=== PATIENT | female | born 1960 | race Caucasian/White ===

== ENCOUNTER 2017-08-17 07:44 | Inpatient (IN) | payer OTHER ==
[2017-08-17 08:57] LABS: BASO % 0.8 % (0-2.0); EOS % 3.2 % (0-4.5); MCH 26.5 pg (25.7-33.7); MCHC 31.7 g/dl (32.0-36.0); MEAN CELL VOLUME 83.7 fl (80-96); MEAN PLT VOLUME 7.3 fl (7.5-11.1); PLATELET COUNT 364 K/MM3 (134-434); RDW 14.4 % (11.6-15.6); WHITE BLOOD COUNT 9.9 K/mm3 (4.0-10.0)
[2017-08-17 09:22] LABS: PHOSPHOROUS 3.9 mg/dL (2.5-4.9); URIC ACID 2.8 mg/dL (2.6-7.2)
[2017-08-17 09:25] LABS: ALBUMIN 2.8 g/dl (3.4-5.0); ALK PHOS 103 U/L (45-117); ANION GAP 10 (8-16); BILIRUBIN,DIRECT < 0.2 mg/dL (0.0-0.2); BILIRUBIN,TOTAL 0.3 mg/dL (0.2-1.0); CALCIUM 9.5 mg/dL (8.5-10.1); CO2 25 mmol/L (21-32); CREATININE 0.6 mg/dL (0.55-1.02); GLUCOSE,RANDOM 62 mg/dL (74-106); MAGNESIUM 2.2 mg/dL (1.8-2.4); SGOT/AST 17 U/L (15-37); SGPT/ALT 20 U/L (12-78); TOT PROT 7.2 g/dl (6.4-8.2)
[2017-08-17] MEDS: SODIUM CHLORIDE 1,000 ML IV SCH ×2 (09:51→17:17)
[2017-08-17] MEDS ORDERED: LIDOCAINE 2.5%/PRILOCAINE 2.5% (5 Gram/TUBE) TP ONE (10:15)
[2017-08-17] MEDS ORDERED: DEXTROSE 5%-NORMAL SALINE 500 ML IV ONE (10:45)
[2017-08-17] MEDS ORDERED: DEXAMETHASONE IVPB ONE (11:00)
[2017-08-17] MEDS ORDERED: DIPHENHYDRAMINE IVPB ONE (11:00)
[2017-08-17] MEDS ORDERED: ONDANSETRON IVPB ONE (11:00)
[2017-08-17] MEDS ORDERED: FOSAPREPITANT DIMEGLUMINE 150 MG in SODIUM CHLORIDE 145 ML IVPB ONE (11:00)
[2017-08-17] MEDS ORDERED: ACETAMINOPHEN 325 MG TABLET (FP) PO ONE (11:00)
[2017-08-17] MEDS ORDERED: [UNRECOGNIZED DRUG - OTHER] IVPB ONE (11:00)
[2017-08-17] MEDS ORDERED: SODIUM CHLORIDE IVPB ONE (11:30)
[2017-08-17] MEDS ORDERED: RITUXIMAB IVPB ONE (11:30)
[2017-08-17] MEDS ORDERED: ONDANSETRON 4 MG TABLET PO PRN (11:36)
[2017-08-17] MEDS ORDERED: ONDANSETRON 4 MG/2 ML VIAL IVPB PRN (11:36)
[2017-08-17] MEDS ORDERED: guaiFENesin 200 MG/10 ML 10 ML UNIT-DOSE CUPS PO PRN (11:41)
[2017-08-17] MEDS: ALLOPURINOL 300 MG TABLET (FP) PO SCH (13:00)
[2017-08-17 15:04] VITALS: BMI 19.8
[2017-08-17] MEDS ORDERED: [UNRECOGNIZED DRUG - OTHER] IV ONE (16:30)
[2017-08-17] MEDS ORDERED: DOXORUBICIN HCL IV ONE (16:30)
[2017-08-17] MEDS ORDERED: ETOPOSIDE IV ONE (16:30)
[2017-08-17] MEDS: DOCUSATE SODIUM 100 MG CAPSULE (FP) PO SCH ×2 (17:21→21:36)
--- NOTE | 2017-08-17 18:25 | CON.PULM ---
Consult - History of Present Illness Chief Complaint: Non-productive cough History of Present Illness: 57 year old developed non-productive cough in May. CXR and CT chest revealed RUL/R hilar mass. Mediastinoscopy: Large B-Cell Lymphoma. Pt now admitted for chemotherapy. 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, Seizure, Syncope, TIA, Vertigo Cardio/Vascular: No: CAD, CHF, [place] Pulmonary: No: Asthma, COPD Gastrointestinal: No: GERD, GI Bleed, Ulcerative Colitis Renal/: Yes: Other (urethral stenosi and urinary regention-self catherizes) ...LMP: 06/26/14 - Past Surgical History Additional Surgical History: Right nephrectomy 20 years ago for (?) benign disease - Alcohol/Substance Use Hx Alcohol Use: No - Smoking History Smoking history: Never smoked Have you smoked in the past 12 months: No Aproximately how many cigarettes per day: 0 If you are a former smoker, when did you quit?: n Home Medications - Allergies Allergies/Adverse Reactions: Allergies Allergy/AdvReac Type Severity Reaction Status Date / Time Penicillins Allergy Mild Hives Verified 01/24/12 02:01 - Home Medications Home Medications: Ambulatory Orders Nitrofurantoin Monohyd/M-Cryst [Macrobid 100 mg Capsule] 100 mg PO BID #30 capsule 01/24/12 Review of Systems - Review of Systems Constitutional: denies: Chills, Fever Neck: denies: Lumps Cardiovascular: denies: Chest Pain, Edema, Palpitations, Shortness of Breath Respiratory: reports: Cough. denies: Hemoptysis, Orthopnea, SOB, Wheezing Gastrointestinal: denies: Abdominal Pain, Diarrhea, Dysphagia, Rectal Bleeding, Vomiting, Vomiting Blood Genitourinary: denies: Burning Neurological: denies: Change in Speech, Headache, Seizure, Syncope, Tremors, Unsteady Gait, Weakness Physical Exam Vital Sings: Vital Signs Temperature 97.6 F 08/17/17 17:00 Pulse Rate 86 08/17/17 17:00 Respiratory Rate 08/17/17 17:00 Blood Pressure 91/50 08/17/17 17:00 O2 Sat by Pulse Oximetry (%) Constitutional: Yes: Well Nourished, No Distress, Calm Eyes: No: Sclera Icterus HENT: Yes: Atraumatic, Normocephalic Neck: Yes: Supple, Trachea Midline Cardiovascular: Yes: Regular Rate and Rhythm. No: JVD, Murmur Respiratory: Yes: CTA Bilaterally ...Inspection: Yes: WNL ...Palpation: No: Tenderness ...Clubbing: No Gastrointestinal: Yes: Soft. No: Hepatomegaly, Palpable Mass, Splenomegaly, Tenderness Extremities: No: Calf Tenderness Edema: No Neurological: Yes: Alert, Oriented Labs: CBC, BMP 08/17/17 08:39 08/17/17 08:39 Problem List - Problems (1) Large B-cell lymphoma Code(s): C85.10 - UNSPECIFIED B-CELL LYMPHOMA, UNSPECIFIED SITE Assessment/Plan Large B Cell Lymphoma undergoing chemotherapy. Respiratory and cardiac status normal. No fever. Plan: treatment per oncologists. Observe for signs of sepsis and/or bleeding.
[2017-08-17] MEDS: ONDANSETRON 4 MG/2 ML VIAL IVPB SCH (18:30)
[2017-08-17] MEDS: ALPRAZolam 0.25 MG TABLET PO PRN (21:32)
[2017-08-17] MEDS: SENNOSIDES 8.6MG TABLET (FP) PO PRN (21:32)
[2017-08-18] MEDS: SODIUM CHLORIDE 1,000 ML IV SCH ×4 (01:01→14:15)
[2017-08-18] MEDS: DOCUSATE SODIUM 100 MG CAPSULE (FP) PO SCH ×3 (06:40→21:30)
[2017-08-18 07:37] LABS: BASO % 0.1 % (0-2.0); MCH 26.8 pg (25.7-33.7); MCHC 31.8 g/dl (32.0-36.0); MEAN CELL VOLUME 84.4 fl (80-96); MEAN PLT VOLUME 7.8 fl (7.5-11.1); NEUT % 95.4 % (42.8-82.8); PLATELET COUNT 239 K/MM3 (134-434); RDW 14.2 % (11.6-15.6); WHITE BLOOD COUNT 9.7 K/mm3 (4.0-10.0)
[2017-08-18 07:53] LABS: ALBUMIN 2.2 g/dl (3.4-5.0); ANION GAP 11 (8-16); CALCIUM 8.8 mg/dL (8.5-10.1); CO2 22 mmol/L (21-32); GLUCOSE,RANDOM 110 mg/dL (74-106); MAGNESIUM 1.8 mg/dL (1.8-2.4)
[2017-08-18 07:58] LABS: ALK PHOS 103 U/L (45-117); BILIRUBIN,TOTAL 0.2 mg/dL (0.2-1.0); CREATININE 0.5 mg/dL (0.55-1.02); LDH 394 U/L (84-246); PHOSPHOROUS 2.9 mg/dL (2.5-4.9); SGOT/AST 19 U/L (15-37); SGPT/ALT 22 U/L (12-78); URIC ACID 2.2 mg/dL (2.6-7.2)
[2017-08-18] MEDS: predniSONE 20 MG TABLET (UD) PO SCH ×2 (09:57→21:27)
[2017-08-18] MEDS: ALLOPURINOL 300 MG TABLET (FP) PO SCH (09:58)
[2017-08-18] MEDS: ONDANSETRON 4 MG/2 ML VIAL IVPB SCH (09:59)
[2017-08-18] MEDS ORDERED: ONDANSETRON IVPB ONE (14:00)
[2017-08-18] MEDS ORDERED: SODIUM CHLORIDE IVPB ONE ×2 (14:00→14:30)
[2017-08-18] MEDS ORDERED: ACETAMINOPHEN 325 MG TABLET (FP) PO ONE (14:00)
[2017-08-18] MEDS ORDERED: DIPHENHYDRAMINE IVPB ONE (14:00)
[2017-08-18] MEDS ORDERED: RITUXIMAB IVPB ONE (14:30)
[2017-08-18] MEDS ORDERED: METOCLOPRAMIDE HCL 10 MG TABLET (FP) PO ONE (16:01)
[2017-08-18] MEDS ORDERED: ONDANSETRON INJECTION 8 MG in SODIUM CHLORIDE 50 ML IVPB ONE (18:00)
[2017-08-18] MEDS ORDERED: ETOPOSIDE IV ONE (18:15)
[2017-08-18] MEDS ORDERED: [UNRECOGNIZED DRUG - OTHER] IV ONE (18:15)
[2017-08-18] MEDS ORDERED: DOXORUBICIN HCL IV ONE (18:15)
--- NOTE | 2017-08-18 18:59 | PN ---
Progress Note (short form) - Note Progress Note: Patient seen and examined Cough persists Rituxin in split sose administered. For chemotherapy with vincristine, etoposide, and adrimycin Good output Last Vital Signs Temp Pulse Resp BP Pulse Ox 97.8 F 67 20 111/60 96 08/18/17 17:56 08/18/17 17:56 08/18/17 17:56 08/18/17 17:56 08/18/17 09:00 HEENT: JACQUES, EOM Intact Oropharynx: No thrush, No mucositis CBC, BMP 08/18/17 06:00 08/18/17 06:00 Current Medications Generic Name Dose Route Start Last Admin Trade Name Freq PRN Reason Stop Dose Admin Allopurinol 300 mg 08/17/17 12:45 08/18/17 09:58 Zyloprim - PO 300 mg DAILY JOHN Administration Alprazolam 0.25 mg 08/17/17 11:35 08/17/17 21:32 Xanax - PO 0.25 mg Q8H PRN Administration Docusate Sodium 100 mg 08/17/17 14:00 08/18/17 14:15 Colace - PO Not Given TID JOHN Guaifenesin 5 ml 08/17/17 11:41 Robitussin - PO Q4H PRN Sodium Chloride 1,000 mls @ 125 mls/hr 08/17/17 12:00 08/18/17 14:15 Normal Saline - IV 08/23/17 11:59 Not Given Q8H JOHN Doxorubicin HCl 15 mg/ 1,011.79 mls @ 42.158 mls/hr 08/18/17 18:15 08/18/17 18:43 Etoposide 74 mg/ Vincristine IV 08/19/17 18:14 42.158 mls/hr Sulfate 0.59 mg/ Sodium ONCE ONE Administration Chloride Ondansetron HCl 8 mg/ Sodium 54 mls @ 216 mls/hr 08/19/17 17:30 Chloride IVPB 08/19/17 17:44 ONCE ONE Doxorubicin HCl 15 mg/ 1,011.79 mls @ 42.158 mls/hr 08/19/17 18:00 Etoposide 74 mg/ Vincristine IV 08/20/17 17:59 Sulfate 0.59 mg/ Sodium ONCE ONE Chloride Ondansetron HCl 8 mg 08/17/17 11:36 Zofran - PO Q8H PRN Ondansetron HCl 8 mg 08/17/17 11:36 Zofran Injection IVPB Q8H PRN NAUSEA AND/OR VOMITING Ondansetron HCl 8 mg 08/17/17 10:00 08/18/17 09:59 Zofran Injection IVPB 08/22/17 09:59 8 mg DAILY JOHN Administration Prednisone 90 mg 08/18/17 10:00 08/18/17 09:57 Deltasone - PO 08/21/17 22:01 90 mg BID JOHN Administration Senna 2 tab 08/17/17 11:35 08/17/17 21:32 Senna - PO 2 tab HS PRN Administration Cor: RSR, No murmurs, No gallops Lungs: Clear to P&A Abd: Soft, Normal bowel sounds, No organomegaly Ext:No significant edema Skin: No rashes, Integument intact Impression: Primary mediastinal B cell lymphoma Chemotherapy Plan: Monitor for tumor lysis Patient with only one kidney Daily chemotherapy Daily labs
[2017-08-18] MEDS: SENNOSIDES 8.6MG TABLET (FP) PO PRN (21:29)
[2017-08-18] MEDS: ALPRAZolam 0.25 MG TABLET PO PRN (21:31)
[2017-08-19] MEDS: SODIUM CHLORIDE 1,000 ML IV SCH ×6 (00:54→22:07)
[2017-08-19] MEDS: DOCUSATE SODIUM 100 MG CAPSULE (FP) PO SCH ×3 (06:15→22:06)
[2017-08-19] MEDS ORDERED: FUROSEMIDE 20 MG TABLET (FP) PO STA (07:31)
[2017-08-19] MEDS ORDERED: POTASSIUM CHLORIDE TABS 20 MEQ TABLET.ER (FP) PO STA (07:32)
[2017-08-19 07:53] LABS: MCH 26.1 pg (25.7-33.7); MCHC 31.1 g/dl (32.0-36.0); MEAN PLT VOLUME 7.6 fl (7.5-11.1); NEUT % 97.5 % (42.8-82.8); PLATELET COUNT 331 K/MM3 (134-434); RDW 14.4 % (11.6-15.6)
[2017-08-19 08:12] LABS: ANION GAP 8 (8-16); CALCIUM 8.4 mg/dL (8.5-10.1); CO2 22 mmol/L (21-32); CREATININE 0.5 mg/dL (0.55-1.02); GLUCOSE,RANDOM 102 mg/dL (74-106); LDH 312 U/L (84-246); SGOT/AST 14 U/L (15-37); SGPT/ALT 23 U/L (12-78); TOT PROT 5.6 g/dl (6.4-8.2); URIC ACID 2.1 mg/dL (2.6-7.2)
[2017-08-19 08:13] LABS: ALK PHOS 84 U/L (45-117); BILIRUBIN,TOTAL 0.2 mg/dL (0.2-1.0)
[2017-08-19] MEDS: predniSONE 20 MG TABLET (UD) PO SCH ×2 (09:30→22:06)
[2017-08-19] MEDS: ENOXAPARIN NA (PORCINE) 40 MG/0.4 ML DISP.SYRIN SQ SCH (09:30)
[2017-08-19] MEDS: ALLOPURINOL 300 MG TABLET (FP) PO SCH (09:30)
[2017-08-19] MEDS: ONDANSETRON 4 MG/2 ML VIAL IVPB SCH (09:32)
--- NOTE | 2017-08-19 14:32 | PN ---
Progress Note (short form) - Note Progress Note: Patient seen and examined. Cough mild Not much further night sweats Last Vital Signs Temp Pulse Resp BP Pulse Ox 97.3 F L 81 20 122/54 96 08/19/17 09:44 08/19/17 09:44 08/19/17 09:44 08/19/17 09:44 08/18/17 20:14 CBC, BMP 08/19/17 06:00 08/19/17 06:00 Current Medications Generic Name Dose Route Start Last Admin Trade Name Freq PRN Reason Stop Dose Admin Allopurinol 300 mg 08/17/17 12:45 08/19/17 09:30 Zyloprim - PO 300 mg DAILY JOHN Administration Alprazolam 0.25 mg 08/17/17 11:35 08/18/17 21:31 Xanax - PO 0.25 mg Q8H PRN Administration Docusate Sodium 100 mg 08/17/17 14:00 08/19/17 14:02 Colace - PO 100 mg TID JOHN Administration Enoxaparin Sodium 40 mg 08/19/17 10:00 08/19/17 09:30 Lovenox - SQ 40 mg DAILY JOHN Administration Guaifenesin 5 ml 08/17/17 11:41 Robitussin - PO Q4H PRN Sodium Chloride 1,000 mls @ 125 mls/hr 08/17/17 12:00 08/19/17 11:51 Normal Saline - IV 08/23/17 11:59 Not Given Q8H JOHN Doxorubicin HCl 15 mg/ 1,011.79 mls @ 42.158 mls/hr 08/18/17 18:15 08/18/17 18:43 Etoposide 74 mg/ Vincristine IV 08/19/17 18:14 42.158 mls/hr Sulfate 0.59 mg/ Sodium ONCE ONE Administration Chloride Ondansetron HCl 8 mg/ Sodium 54 mls @ 216 mls/hr 08/19/17 17:30 Chloride IVPB 08/19/17 17:44 ONCE ONE Doxorubicin HCl 15 mg/ 1,011.79 mls @ 42.158 mls/hr 08/19/17 18:00 Etoposide 74 mg/ Vincristine IV 08/20/17 17:59 Sulfate 0.59 mg/ Sodium ONCE ONE Chloride Ondansetron HCl 8 mg 08/17/17 11:36 Zofran - PO Q8H PRN Ondansetron HCl 8 mg 08/17/17 11:36 Zofran Injection IVPB Q8H PRN NAUSEA AND/OR VOMITING Ondansetron HCl 8 mg 08/17/17 10:00 08/19/17 09:32 Zofran Injection IVPB 08/22/17 09:59 8 mg DAILY JOHN Administration Prednisone 90 mg 08/18/17 10:00 08/19/17 09:30 Deltasone - PO 08/21/17 22:01 90 mg BID JOHN Administration Senna 2 tab 08/17/17 11:35 08/18/17 21:29 Senna - PO 2 tab HS PRN Administration Cor: RSR, No murmurs, No gallops Lungs: Clear to P&A Abd: Soft, Normal bowel sounds, No organomegaly Ext:No significant edema Skin: No rashes, Integument intact Impression: Primary mediastinal B cell lymphoma Chemotherapy Plan: Monitor for tumor lysis Daily chemotherapy C1D3 Daily labs daily weight and I/O lasix tomorrow will need to consider to decrease the rate of fluids. DVT ppx
[2017-08-19] MEDS ORDERED: ONDANSETRON INJECTION 8 MG in SODIUM CHLORIDE 50 ML IVPB ONE (17:30)
[2017-08-19] MEDS ORDERED: [UNRECOGNIZED DRUG - OTHER] IV ONE (18:00)
[2017-08-19] MEDS ORDERED: ETOPOSIDE IV ONE (18:00)
[2017-08-19] MEDS ORDERED: DOXORUBICIN HCL IV ONE (18:00)
[2017-08-19] MEDS: ALPRAZolam 0.25 MG TABLET PO PRN (22:06)
[2017-08-20] MEDS: DOCUSATE SODIUM 100 MG CAPSULE (FP) PO SCH ×3 (06:44→21:35)
[2017-08-20 08:04] LABS: BASO % 0.1 % (0-2.0); MCH 26.7 pg (25.7-33.7); MCHC 31.8 g/dl (32.0-36.0); MEAN PLT VOLUME 7.3 fl (7.5-11.1); NEUT % 96.9 % (42.8-82.8); PLATELET COUNT 324 K/MM3 (134-434); RDW 14.2 % (11.6-15.6); WHITE BLOOD COUNT 8.5 K/mm3 (4.0-10.0)
[2017-08-20 08:44] LABS: ANION GAP 10 (8-16); CALCIUM 8.6 mg/dL (8.5-10.1); CO2 22 mmol/L (21-32); CREATININE 0.5 mg/dL (0.55-1.02); GLUCOSE,RANDOM 87 mg/dL (74-106); LDH 268 U/L (84-246); MAGNESIUM 1.8 mg/dL (1.8-2.4); PHOSPHOROUS 2.8 mg/dL (2.5-4.9); SGOT/AST 16 U/L (15-37); SGPT/ALT 21 U/L (12-78); TOT PROT 5.5 g/dl (6.4-8.2); URIC ACID 2.8 mg/dL (2.6-7.2)
[2017-08-20 08:46] LABS: ALK PHOS 77 U/L (45-117); BILIRUBIN,TOTAL 0.1 mg/dL (0.2-1.0)
[2017-08-20] MEDS: ONDANSETRON 4 MG/2 ML VIAL IVPB SCH (09:30)
[2017-08-20] MEDS: ENOXAPARIN NA (PORCINE) 40 MG/0.4 ML DISP.SYRIN SQ SCH (09:31)
[2017-08-20] MEDS: predniSONE 20 MG TABLET (UD) PO SCH ×2 (09:31→21:35)
[2017-08-20] MEDS: ALLOPURINOL 300 MG TABLET (FP) PO SCH (09:31)
[2017-08-20] MEDS ORDERED: FUROSEMIDE 100 MG/10 ML INJECTABLE VIAL IVPB ONE (14:31)
--- NOTE | 2017-08-20 14:33 | PN ---
Progress Note (short form) - Note Progress Note: Patient seen and examined. Cough as per her is non-existent now. weight gain an issue Last Vital Signs Temp Pulse Resp BP Pulse Ox 98.1 F 57 L 18 126/73 98 08/20/17 06:00 08/20/17 06:00 08/20/17 06:00 08/20/17 06:00 08/19/17 20:37 CBC, BMP 08/20/17 06:00 08/20/17 06:00 Current Medications Generic Name Dose Route Start Last Admin Trade Name Freq PRN Reason Stop Dose Admin Allopurinol 300 mg 08/17/17 12:45 08/20/17 09:31 Zyloprim - PO 300 mg DAILY JOHN Administration Docusate Sodium 100 mg 08/17/17 14:00 08/20/17 13:52 Colace - PO 100 mg TID JOHN Administration Enoxaparin Sodium 40 mg 08/19/17 10:00 08/20/17 09:31 Lovenox - SQ 40 mg DAILY JOHN Administration Furosemide 20 mg 08/20/17 14:31 Lasix Injection - IVPB 08/20/17 14:32 ONCE ONE Guaifenesin 5 ml 08/17/17 11:41 Robitussin - PO Q4H PRN Doxorubicin HCl 15 mg/ 1,011.79 mls @ 42.158 mls/hr 08/19/17 18:00 08/19/17 17:36 Etoposide 74 mg/ Vincristine IV 08/20/17 17:59 42.158 mls/hr Sulfate 0.59 mg/ Sodium ONCE ONE Administration Chloride Ondansetron HCl 8 mg/ Sodium 54 mls @ 216 mls/hr 08/20/17 17:30 Chloride IVPB 08/20/17 17:44 ONCE ONE Doxorubicin HCl 15 mg/ 1,011.79 mls @ 42.158 mls/hr 08/20/17 18:00 Etoposide 74 mg/ Vincristine IV 08/21/17 17:59 Sulfate 0.59 mg/ Sodium ONCE ONE Chloride Cyclophosphamide 1,100 mg/ 555 mls @ 555 mls/hr 08/21/17 18:00 Sodium Chloride IVPB 08/21/17 18:59 ONCE ONE Ondansetron HCl 8 mg/ Sodium 54 mls @ 216 mls/hr 08/21/17 17:45 Chloride IVPB 08/21/17 17:59 ONCE ONE Sodium Chloride 1,000 mls @ 64 mls/hr 08/19/17 18:45 08/19/17 22:07 Normal Saline - IV 64 mls/hr ASDIR JOHN Administration Ondansetron HCl 8 mg 08/17/17 11:36 Zofran - PO Q8H PRN Ondansetron HCl 8 mg 08/17/17 11:36 Zofran Injection IVPB Q8H PRN NAUSEA AND/OR VOMITING Ondansetron HCl 8 mg 08/17/17 10:00 08/20/17 09:30 Zofran Injection IVPB 08/22/17 09:59 8 mg DAILY JOHN Administration Pegfilgrastim 6 mg 08/22/17 08:00 Neulasta - SQ 08/22/17 08:01 ONCE ONE Prednisone 90 mg 08/18/17 10:00 08/20/17 09:31 Deltasone - PO 08/21/17 22:01 90 mg BID JOHN Administration Senna 2 tab 08/17/17 11:35 08/18/17 21:29 Senna - PO 2 tab HS PRN Administration Cor: RSR, No murmurs, No gallops Lungs: Clear to P&A Abd: Soft, Normal bowel sounds, No organomegaly Ext:1+ edema Skin: No rashes, Integument intact Impression: Primary mediastinal B cell lymphoma Chemotherapy Plan: Monitor for tumor lysis Daily chemotherapy C1D4 Daily labs daily weight and I/O lasix today DVT ppx
[2017-08-20] MEDS ORDERED: ONDANSETRON INJECTION 8 MG in SODIUM CHLORIDE 50 ML IVPB ONE (17:30)
[2017-08-20] MEDS ORDERED: DOXORUBICIN HCL IV ONE (18:00)
[2017-08-20] MEDS ORDERED: [UNRECOGNIZED DRUG - OTHER] IV ONE (18:00)
[2017-08-20] MEDS ORDERED: ETOPOSIDE IV ONE (18:00)
[2017-08-20] MEDS: SODIUM CHLORIDE 1,000 ML IV SCH (19:00)
[2017-08-20] MEDS: ALPRAZolam 0.25 MG TABLET PO PRN (21:38)
[2017-08-21] MEDS: DOCUSATE SODIUM 100 MG CAPSULE (FP) PO SCH ×3 (06:05→21:19)
[2017-08-21] MEDS: SODIUM CHLORIDE 1,000 ML IV SCH ×2 (06:07→21:18)
[2017-08-21 08:00] LABS: EOS % 0.1 % (0-4.5); LYMPH # 0.1 (8-40); MCH 26.6 pg (25.7-33.7); MEAN CELL VOLUME 83.3 fl (80-96); MEAN PLT VOLUME 7.5 fl (7.5-11.1); MONO # 0.1 # (3.8-10.2); NEUT # 6.7 # (42.8-82.8); NEUT % 97.5 % (42.8-82.8); PLATELET COUNT 316 K/MM3 (134-434); RDW 13.9 % (11.6-15.6); WHITE BLOOD COUNT 6.9 K/mm3 (4.0-10.0)
[2017-08-21 08:32] LABS: ANION GAP 9 (8-16); CO2 25 mmol/L (21-32); URIC ACID 3.2 mg/dL (2.6-7.2)
[2017-08-21 08:38] LABS: ALBUMIN 2.1 g/dl (3.4-5.0); ALK PHOS 75 U/L (45-117); BILIRUBIN,TOTAL 0.2 mg/dL (0.2-1.0); CALCIUM 8.7 mg/dL (8.5-10.1); CREATININE 0.6 mg/dL (0.55-1.02); GLUCOSE,RANDOM 94 mg/dL (74-106); LDH 255 U/L (84-246); PHOSPHOROUS 2.9 mg/dL (2.5-4.9); SGOT/AST 20 U/L (15-37); SGPT/ALT 29 U/L (12-78); TOT PROT 5.4 g/dl (6.4-8.2)
[2017-08-21] MEDS: ALLOPURINOL 300 MG TABLET (FP) PO SCH (10:08)
[2017-08-21] MEDS: ENOXAPARIN NA (PORCINE) 40 MG/0.4 ML DISP.SYRIN SQ SCH (10:08)
[2017-08-21] MEDS: predniSONE 20 MG TABLET (UD) PO SCH ×2 (10:09→21:21)
[2017-08-21] MEDS: ONDANSETRON 4 MG/2 ML VIAL IVPB SCH (10:11)
--- NOTE | 2017-08-21 10:45 | PN ---
Progress Note (short form) - Note Progress Note: Patient seen and examined Tolerating infusional therapy Weight gain from 112- 129 lb since admission. Vigorous hydration continues. Will need additional IV lasix. Last Vital Signs Temp Pulse Resp BP Pulse Ox 97.8 F 50 L 18 130/73 97 08/21/17 06:00 08/21/17 06:00 08/21/17 06:00 08/21/17 06:00 08/20/17 20:05 HEENT: JACQUES, EOM Intact Oropharynx: No thrush, No mucositis Neck: Supple Nodes: Without adenopathy Cor: RSR, No murmurs, No gallops Lungs: Clear to P&A Abd: Soft, Normal bowel sounds, No organomegaly Ext:No significant edema Skin: No rashes, Integument intact CBC, BMP 08/21/17 06:15 08/21/17 06:15 Current Medications Generic Name Dose Route Start Last Admin Trade Name Freq PRN Reason Stop Dose Admin Allopurinol 300 mg 08/17/17 12:45 08/21/17 10:08 Zyloprim - PO 300 mg DAILY JOHN Administration Alprazolam 0.25 mg 08/20/17 14:35 08/20/17 21:38 Xanax - PO 0.25 mg Q8H PRN Administration ANXIETY Docusate Sodium 100 mg 08/17/17 14:00 08/21/17 06:05 Colace - PO 100 mg TID JOHN Administration Enoxaparin Sodium 40 mg 08/19/17 10:00 08/21/17 10:08 Lovenox - SQ 40 mg DAILY JOHN Administration Guaifenesin 5 ml 08/17/17 11:41 Robitussin - PO Q4H PRN Doxorubicin HCl 15 mg/ 1,011.79 mls @ 42.158 mls/hr 08/20/17 18:00 08/20/17 18:51 Etoposide 74 mg/ Vincristine IV 08/21/17 17:59 42.158 mls/hr Sulfate 0.59 mg/ Sodium ONCE ONE Administration Chloride Cyclophosphamide 1,100 mg/ 555 mls @ 555 mls/hr 08/21/17 18:00 Sodium Chloride IVPB 08/21/17 18:59 ONCE ONE Ondansetron HCl 8 mg/ Sodium 54 mls @ 216 mls/hr 08/21/17 17:45 Chloride IVPB 08/21/17 17:59 ONCE ONE Sodium Chloride 1,000 mls @ 64 mls/hr 08/19/17 18:45 08/21/17 06:07 Normal Saline - IV 64 mls/hr ASDIR JOHN Administration Ondansetron HCl 8 mg 08/17/17 11:36 Zofran - PO Q8H PRN Ondansetron HCl 8 mg 08/17/17 11:36 Zofran Injection IVPB Q8H PRN NAUSEA AND/OR VOMITING Ondansetron HCl 8 mg 08/17/17 10:00 08/21/17 10:11 Zofran Injection IVPB 08/22/17 09:59 Not Given DAILY JOHN Pegfilgrastim 6 mg 08/22/17 08:00 Neulasta - SQ 08/22/17 08:01 ONCE ONE Pegfilgrastim 6 mg 08/23/17 10:00 Neulasta - SQ 08/23/17 10:01 ONCE ONE Prednisone 90 mg 08/18/17 10:00 08/21/17 10:09 Deltasone - PO 08/21/17 22:01 90 mg BID JOHN Administration Senna 2 tab 08/17/17 11:35 08/18/17 21:29 Senna - PO 2 tab HS PRN Administration Impression: Primary large mediastinal B cell lymphoma Chemotherapy Fluid overload Plan: IV lasix Chemotherapy Prophylactic - cipro, bactrim,valtrex- modified dose in view of one kidney Neulasta post chemotherapy.
[2017-08-21] MEDS: FUROSEMIDE 40 MG/4 ML INJECTABLE VIAL IVPUSH SCH (15:00)
[2017-08-21] MEDS: POTASSIUM CHLORIDE TABS 20 MEQ TABLET.ER (FP) PO SCH ×2 (15:00→21:21)
[2017-08-21] MEDS ORDERED: POLYETHYLENE GLYCOL 3350 119 GM BTL PO ONE (17:05)
[2017-08-21] MEDS ORDERED: ONDANSETRON INJECTION 8 MG in SODIUM CHLORIDE 50 ML IVPB ONE (17:45)
[2017-08-21] MEDS ORDERED: SODIUM CHLORIDE IVPB ONE (18:00)
[2017-08-21] MEDS ORDERED: CYCLOPHOSPHAMIDE IVPB ONE (18:00)
[2017-08-21] MEDS ORDERED: ONDANSETRON 4 MG/2 ML VIAL IVPB SCH (18:37)
[2017-08-21] MEDS: ALPRAZolam 0.25 MG TABLET PO PRN (21:25)
[2017-08-22] MEDS: predniSONE 20 MG TABLET (UD) PO SCH ×2 (06:04→15:41)
[2017-08-22] MEDS: DOCUSATE SODIUM 100 MG CAPSULE (FP) PO SCH ×2 (06:05→15:41)
[2017-08-22 07:37] LABS: LYMPH # 0.1 (8-40); MCH 26.4 pg (25.7-33.7); MCHC 31.7 g/dl (32.0-36.0); MEAN CELL VOLUME 83.2 fl (80-96); MEAN PLT VOLUME 7.3 fl (7.5-11.1); MONO # 0.1 # (3.8-10.2); NEUT % 96.9 % (42.8-82.8); PLATELET COUNT 345 K/MM3 (134-434); RDW 14.2 % (11.6-15.6); WHITE BLOOD COUNT 6.2 K/mm3 (4.0-10.0)
[2017-08-22] MEDS ORDERED: CYCLOPHOSPHAMIDE IVPB ONE (08:00)
[2017-08-22] MEDS ORDERED: SODIUM CHLORIDE IVPB ONE (08:00)
[2017-08-22] MEDS ORDERED: PEGFILGRASTIM 6 MG/0.6 ML DISP.SYRIN SQ ONE (08:00)
[2017-08-22 08:14] LABS: ALBUMIN 2.6 g/dl (3.4-5.0); ANION GAP 8 (8-16); BILIRUBIN,TOTAL 0.4 mg/dL (0.2-1.0); CALCIUM 8.8 mg/dL (8.5-10.1); CO2 28 mmol/L (21-32); CREATININE 0.6 mg/dL (0.55-1.02); GLUCOSE,RANDOM 102 mg/dL (74-106); LDH 244 U/L (84-246); MAGNESIUM 2.4 mg/dL (1.8-2.4); SGOT/AST 20 U/L (15-37); SGPT/ALT 38 U/L (12-78); URIC ACID 2.7 mg/dL (2.6-7.2)
[2017-08-22 08:15] LABS: ALK PHOS 76 U/L (45-117); PHOSPHOROUS 3.4 mg/dL (2.5-4.9)
[2017-08-22] MEDS ORDERED: [UNRECOGNIZED DRUG - MIXTURE] IV ONE (09:00)
[2017-08-22] MEDS: POTASSIUM CHLORIDE TABS 20 MEQ TABLET.ER (FP) PO SCH (09:09)
[2017-08-22] MEDS: ALLOPURINOL 300 MG TABLET (FP) PO SCH (09:09)
[2017-08-22] MEDS: ENOXAPARIN NA (PORCINE) 40 MG/0.4 ML DISP.SYRIN SQ SCH (09:10)
[2017-08-22] MEDS ORDERED: POLYETHYLENE GLYCOL 3350 119 GM BTL PO SCH (10:00)
[2017-08-22] MEDS: FUROSEMIDE 40 MG/4 ML INJECTABLE VIAL IVPUSH SCH (10:52)
--- NOTE | 2017-08-22 11:52 | PN ---
Progress Note (short form) - Note Progress Note: Seen in follow up. Feeling well today. Completed chemotherapy - receiving hydration at this time. Meds reviewed. Current Medications Generic Name Dose Route Start Last Admin Trade Name Freq PRN Reason Stop Dose Admin Allopurinol 300 mg 08/17/17 12:45 08/22/17 09:09 Zyloprim - PO 300 mg DAILY JOHN Administration Alprazolam 0.25 mg 08/20/17 14:35 08/21/17 21:25 Xanax - PO 0.25 mg Q8H PRN Administration ANXIETY Docusate Sodium 100 mg 08/17/17 14:00 08/22/17 06:05 Colace - PO 100 mg TID JOHN Administration Enoxaparin Sodium 40 mg 08/19/17 10:00 08/22/17 09:10 Lovenox - SQ 40 mg DAILY JOHN Administration Furosemide 40 mg 08/21/17 11:00 08/22/17 10:52 Lasix Injection - IVPUSH 40 mg DAILY JOHN Administration Guaifenesin 5 ml 08/17/17 11:41 Robitussin - PO Q4H PRN Sodium Chloride 1,000 mls @ 64 mls/hr 08/19/17 18:45 08/21/17 21:18 Normal Saline - IV 64 mls/hr ASDIR JOHN Administration Sodium Chloride/ Sodium 1,500 mls @ 250 mls/hr 08/22/17 09:00 08/22/17 10:52 Chloride IV 08/22/17 14:59 250 mls/hr ONCE ONE Administration Ondansetron HCl 8 mg 08/17/17 11:36 Zofran - PO Q8H PRN Ondansetron HCl 8 mg 08/17/17 11:36 Zofran Injection IVPB Q8H PRN NAUSEA AND/OR VOMITING Ondansetron HCl 8 mg 08/21/17 18:37 08/22/17 07:56 Zofran Injection IVPB 8 mg DAILY@0730 JOHN Administration Pegfilgrastim 6 mg 08/23/17 10:00 Neulasta - SQ 08/23/17 10:01 ONCE ONE Polyethylene Glycol 17 gm 08/22/17 10:00 08/22/17 09:09 Miralax (For Daily Use) - PO 17 grams DAILY JOHN Administration Potassium Chloride 20 meq 08/21/17 11:00 08/22/17 09:09 K-Dur - PO 20 meq BID JOHN Administration Prednisone 90 mg 08/21/17 22:00 08/22/17 06:04 Deltasone - PO 08/22/17 15:31 90 mg BID@0600,1530 JOHN Administration Senna 2 tab 08/17/17 11:35 08/18/17 21:29 Senna - PO 2 tab HS PRN Administration On exam: General: Looks well, out of bed and ambulant. Extremities: No pallor, no icterus. Chest:breathing comfortably. Abdomen: Not distended. Neuro: Alert, oriented, non-focal. Extremities: Minimal edemaLarhe Last Vital Signs Temp Pulse Resp BP Pulse Ox 98.0 F 82 18 121/81 99 08/22/17 08:36 08/22/17 08:36 08/22/17 08:36 08/22/17 08:36 08/21/17 21:00 Assessment. Primary large mediastinal lymphoma Completing this cycle chemotherapy - E-CHOP - well tolerated. Will go home this afternoon. Returns in 3 days for GCSF
[2017-08-22 18:52] VITALS: BP 116/71; PULSE 71; TEMP 98.1
[2017-08-23] MEDS ORDERED: PEGFILGRASTIM 6 MG/0.6 ML DISP.SYRIN SQ ONE (10:00)
== END 2017-08-22 18:00 | disposition home or self-care (01) | DRG 693 ==
LOC: J7W 07:44
PROVIDERS: ADMIT Internal Medicine Hematology & Oncology; ATTEND Internal Medicine Hematology & Oncology
DX: Z51.11 Encounter for antineoplastic chemotherapy (principal); C85.20 Mediastinal (thymic) large B-cell lymphoma, unspecified site; E87.70 Fluid overload, unspecified; R05 Cough
CPT/HCPCS: 36415; 80053; 80076; 82784; 83615; 83735; 84100; 84550; 85025; 96361; 96367; 96375; 96413; 96415; J1453; J9070; J9181; J9310; J9370

== ENCOUNTER 2017-08-26 09:04 | Day surgery (SDC) | payer OTHER ==
[2017-08-26] MEDS ORDERED: ONDANSETRON 4 MG/2 ML VIAL IVPUSH PRN (10:18)
[2017-08-26] MEDS ORDERED: PEGFILGRASTIM 6 MG/0.6 ML DISP.SYRIN SQ ONE (10:45)
[2017-08-26 11:24] VITALS: BP 98/62; PULSE 83; TEMP 97.4
== END 2017-08-26 10:45 | disposition home or self-care (01) ==
LOC: JONCNONCHE 09:04 → J7W 10:21 → JONCNONCHE 10:45
PROVIDERS: ATTEND Internal Medicine Hematology & Oncology
PROC: 3E0 Administration, Physiological Systems and Anatomical Regions, Introduction (ICD-10-PCS; principal; 2017-08-26)
DX: C85.20 Mediastinal (thymic) large B-cell lymphoma, unspecified site (principal); Z76.89 Persons encountering health services in other specified circumstances
CPT/HCPCS: 96372; J2505

== ENCOUNTER 2017-09-15 09:17 | Inpatient (IN) | payer OTHER ==
[~2017-09-15 09:17] MED LIST: DEXTROSE 5%-WATER - 250 ML IVPB ONE
[2017-09-15] MEDS ORDERED: ONDANSETRON IVPB ONE (10:00)
[2017-09-15] MEDS ORDERED: [UNRECOGNIZED DRUG - OTHER] IVPB ONE (10:00)
[2017-09-15] MEDS ORDERED: ACETAMINOPHEN 325 MG TABLET (FP) PO ONE (10:00)
[2017-09-15] MEDS ORDERED: DEXAMETHASONE IVPB ONE (10:00)
[2017-09-15] MEDS ORDERED: DIPHENHYDRAMINE IVPB ONE (10:00)
[2017-09-15] MEDS ORDERED: FOSAPREPITANT DIMEGLUMINE 150 MG in SODIUM CHLORIDE 150 ML IVPB ONE (10:00)
[2017-09-15] MEDS ORDERED: RITUXIMAB IVPB ONE (10:30)
[2017-09-15] MEDS ORDERED: SODIUM CHLORIDE IVPB ONE (10:30)
[2017-09-15 11:04] LABS: BASO % 0.8 % (0-2.0); HEMATOCRIT 37.2 % (32.4-45.2); HEMOGLOBIN 11.8 GM/dL (10.7-15.3); LYMPH % 6.9 % (8-40); MCH 27.6 pg (25.7-33.7); MCHC 31.8 g/dl (32.0-36.0); MEAN PLT VOLUME 8.2 fl (7.5-11.1); MONO % 8.7 % (3.8-10.2); NEUT % 82.6 % (42.8-82.8); PLATELET COUNT 400 K/MM3 (134-434); RBC 4.27 M/mm3 (3.60-5.2); RDW 20.3 % (11.6-15.6); WHITE BLOOD COUNT 6.6 K/mm3 (4.0-10.0)
[2017-09-15 11:20] LABS: ALBUMIN 3.4 g/dl (3.4-5.0); ANION GAP 9 (8-16); BILIRUBIN,DIRECT < 0.2 mg/dL (0.0-0.2); BLOOD UREA NITROGEN 17 mg/dL (7-18); CALCIUM 8.9 mg/dL (8.5-10.1); CHLORIDE 107 mmol/L (98-107); CO2 24 mmol/L (21-32); GLUCOSE,RANDOM 111 mg/dL (74-106); MAGNESIUM 1.8 mg/dL (1.8-2.4); POTASSIUM 4.6 mmol/L (3.5-5.1); SODIUM 140 mmol/L (136-145)
[2017-09-15 11:23] LABS: ALK PHOS 105 U/L (45-117); BILIRUBIN,TOTAL 0.4 mg/dL (0.2-1.0); CREATININE 0.6 mg/dL (0.55-1.02); SGOT/AST 22 U/L (15-37); SGPT/ALT 39 U/L (12-78); TOT PROT 6.8 g/dl (6.4-8.2)
[2017-09-15] MEDS ORDERED: [UNRECOGNIZED DRUG - OTHER] IV ONE (12:00)
[2017-09-15] MEDS ORDERED: DOXORUBICIN HCL IV ONE (12:00)
[2017-09-15] MEDS ORDERED: ETOPOSIDE IV ONE (12:00)
[2017-09-15 12:42] LABS: LDH 158 U/L (84-246); URIC ACID 3.1 mg/dL (2.6-7.2)
[2017-09-15 12:50] VITALS: BMI 20.3
[2017-09-15] MEDS: ALLOPURINOL 300 MG TABLET (FP) PO SCH ×2 (13:01→13:13)
[2017-09-15] MEDS ORDERED: PORTA CATH FLUSH 10 ML IVPUSH ONE (13:39)
[2017-09-15] MEDS ORDERED: PORTA CATH FLUSH 10 ML IVPUSH PRN (13:39)
[2017-09-15] MEDS ORDERED: ACETAMINOPHEN 325 MG TABLET (FP) ONE (15:14)
[2017-09-15] MEDS: SODIUM CHLORIDE 1,000 ML IV SCH (15:51)
--- NOTE | 2017-09-15 18:18 | CONSULT ---
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 She developed a refractory cough in May and Chest XRay in May revealed a mass the evaluation of which revealed Non-Hodgekins Lymphoma. She had induction chemotherapy with Vincristine, Cytoxan and Adriamicin just before and is now admitted for her second Cycle. Once home, after induction in July, Mrs. Cantu noted numbness and tingling in the fingertips of both hands. No weakness. No paresthesiae in the toes or feet. No change in balance. No neck pain. MARY ANN: Neck supple. No bruits. Portal right chest/subclav. NEURO: MS/speech; Normal Motor: No drift or tremor. Normal strength, tone and bulk. Areflexic. Downgoing toes. Coord: No FTN dystaxia Sensory: Normal vibration, pin, temp. in feet. Romberg neg Normal vibration in fingertips. Pinprick is decreased over the tips of digits II, III on the right. Gait: Normal. IMP: Sensory complaints in the hands sparing the feet with a normal sensory exam in the feet would be an unusual presentation of chemo-related Peripheral Neuropathy (although areflexia would support). Other considerations include compressive neuropathy such as carpal tunnel syndrome or possibly early involvement of the cervical spine, cervical roots, or Brachial plexus. SUGGEST: To begin with B12, ESR, CRP, TSH, T4, Glycosylated hemoglobin A1-C. Consider MRI of Cervical spine. Neuro f/u as out patient for EMG/NCS of right arm and leg. Thank you very much, Liu Vicente MD
[2017-09-15] MEDS ORDERED: ALPRAZolam 0.25 MG TABLET PO ONE (21:45)
[2017-09-16] MEDS: SODIUM CHLORIDE 1,000 ML IV SCH ×3 (01:00→21:19)
[2017-09-16] MEDS: ALLOPURINOL 300 MG TABLET (FP) PO SCH (09:32)
--- NOTE | 2017-09-16 09:51 | PN ---
Progress Note (short form) - Note Progress Note: Patient seen and examined. Pt feels better. She denies any complains. still has mild pins and needles in the tips of the fingers. No further cough. Seen by Neurology O/E: general: NAD HEENT: NCAT, no LAD Cor: RRR Lungs: CTA b/l Neuro: AAOX3 LE: no LE edema Last Vital Signs Temp Pulse Resp BP Pulse Ox 97.6 F 75 18 113/61 97 09/16/17 05:43 09/16/17 05:43 09/16/17 05:43 09/16/17 05:43 09/15/17 21:00 CBC, BMP 09/15/17 10:17 09/15/17 10:17 Current Medications Generic Name Dose Route Start Last Admin Trade Name Freq PRN Reason Stop Dose Admin Allopurinol 300 mg 09/15/17 13:00 09/16/17 09:32 Zyloprim - PO 300 mg DAILY JOHN Administration Alprazolam 0.5 mg 09/16/17 22:00 Xanax - PO DAILY@2200 JOHN IV Flush 10 ml 09/15/17 13:39 Chelle-Cath Flush IVPUSH PRN PRN FLUSH Doxorubicin HCl 15 mg/ 1,011.85 mls @ 42.16 mls/hr 09/15/17 12:00 09/15/17 17 :29 Etoposide 75 mg/ Vincristine IV 09/16/17 11:59 42.16 mls/hr Sulfate 0.6 mg/ Sodium ONCE ONE Administration Chloride Sodium Chloride 1,000 mls @ 100 mls/hr 09/15/17 12:30 09/16/17 01:00 Normal Saline - IV 100 mls/hr ASDIR JOHN Administration Ondansetron HCl 8 mg/ 105 mls @ 210 mls/hr 09/16/17 12:00 Diphenhydramine HCl 50 mg/ IVPB 09/16/17 12:29 Sodium Chloride ONCE ONE Rituximab 279 mg/ Sodium 279 mls @ 200 mls/hr 09/16/17 12:30 Chloride IVPB 09/16/17 13:53 ONCE ONE Doxorubicin HCl 15 mg/ 1,011.25 mls @ 42.135 mls/hr 09/16/17 14:00 Etoposide 75 mg/ Sodium IV 09/17/17 13:59 Chloride ONCE ONE Prednisone 80 mg/ Prednisone 90 mg 09/16/17 10:00 10 mg PO 09/16/17 10:01 ONCE ONE Ms. Cantu is here for C2 DA-EPOCH for Mediastinal DLBCL Today C2D2 Tolerated D1 yesterday with no issues For labs today Prednisone 90mg today TLS ppx : witH Allopurinol daily OI ppx: to be resumed post d/c appreciate Neurology consult, she will f/u with post discharge d/w RN
[2017-09-16] MEDS ORDERED: PREDNISONE PO ONE (10:00)
[2017-09-16 10:54] LABS: BASO % 0.2 % (0-2.0); HEMATOCRIT 34.2 % (32.4-45.2); HEMOGLOBIN 10.9 GM/dL (10.7-15.3); MCH 27.8 pg (25.7-33.7); MCHC 31.8 g/dl (32.0-36.0); MEAN CELL VOLUME 87.3 fl (80-96); MONO % 5.1 % (3.8-10.2); NEUT % 92.7 % (42.8-82.8); PLATELET COUNT 328 K/MM3 (134-434); RBC 3.91 M/mm3 (3.60-5.2); RDW 21.9 % (11.6-15.6); WHITE BLOOD COUNT 11.7 K/mm3 (4.0-10.0)
[2017-09-16 11:24] LABS: ALBUMIN 3.1 g/dl (3.4-5.0); ALK PHOS 82 U/L (45-117); ANION GAP 9 (8-16); BILIRUBIN,TOTAL 0.3 mg/dL (0.2-1.0); BLOOD UREA NITROGEN 18 mg/dL (7-18); CALCIUM 8.6 mg/dL (8.5-10.1); CHLORIDE 109 mmol/L (98-107); CO2 24 mmol/L (21-32); CREATININE 0.6 mg/dL (0.55-1.02); GLUCOSE,RANDOM 144 mg/dL (74-106); LDH 144 U/L (84-246); SGOT/AST 15 U/L (15-37); SGPT/ALT 34 U/L (12-78); SODIUM 142 mmol/L (136-145); TOT PROT 6.3 g/dl (6.4-8.2); URIC ACID 2.7 mg/dL (2.6-7.2)
[2017-09-16] MEDS ORDERED: predniSONE 20 MG TABLET (UD) ONE (11:36)
[2017-09-16] MEDS ORDERED: predniSONE 10 MG TABLET (UD) ONE (11:36)
[2017-09-16] MEDS ORDERED: ONDANSETRON IVPB ONE (12:00)
[2017-09-16] MEDS ORDERED: SODIUM CHLORIDE IVPB ONE ×2 (12:00→12:30)
[2017-09-16] MEDS ORDERED: DIPHENHYDRAMINE IVPB ONE (12:00)
[2017-09-16] MEDS ORDERED: RITUXIMAB IVPB ONE (12:30)
[2017-09-16] MEDS ORDERED: ETOPOSIDE IV ONE (14:00)
[2017-09-16] MEDS ORDERED: SODIUM CHLORIDE IV ONE (14:00)
[2017-09-16] MEDS ORDERED: DOXORUBICIN HCL IV ONE (14:00)
[2017-09-16] MEDS: DOCUSATE SODIUM 100 MG CAPSULE (FP) PO SCH (21:19)
[2017-09-16] MEDS ORDERED: SENNOSIDES 8.6MG TABLET (FP) PO SCH (22:00)
[2017-09-16] MEDS: ALPRAZolam 0.25 MG TABLET PO SCH (22:04)
[2017-09-17 07:35] LABS: BASO % 0.2 % (0-2.0); HEMATOCRIT 29.2 % (32.4-45.2); HEMOGLOBIN 9.4 GM/dL (10.7-15.3); LYMPH % 4.2 % (8-40); MCHC 32.3 g/dl (32.0-36.0); MEAN CELL VOLUME 86.7 fl (80-96); MEAN PLT VOLUME 8.2 fl (7.5-11.1); MONO % 10.3 % (3.8-10.2); NEUT % 85.3 % (42.8-82.8); PLATELET COUNT 215 K/MM3 (134-434); RBC 3.37 M/mm3 (3.60-5.2); RDW 21.9 % (11.6-15.6); WHITE BLOOD COUNT 7.2 K/mm3 (4.0-10.0)
[2017-09-17 08:11] LABS: ADD RBC MORPHOLOGY YES
[2017-09-17 08:26] LABS: ALBUMIN 2.6 g/dl (3.4-5.0); ALK PHOS 62 U/L (45-117); ANION GAP 7 (8-16); BILIRUBIN,TOTAL 0.4 mg/dL (0.2-1.0); BLOOD UREA NITROGEN 15 mg/dL (7-18); CALCIUM 8.4 mg/dL (8.5-10.1); CHLORIDE 113 mmol/L (98-107); CO2 25 mmol/L (21-32); CREATININE 0.5 mg/dL (0.55-1.02); GLUCOSE,RANDOM 72 mg/dL (74-106); LDH 110 U/L (84-246); POTASSIUM 3.6 mmol/L (3.5-5.1); SGOT/AST 12 U/L (15-37); SGPT/ALT 27 U/L (12-78); SODIUM 145 mmol/L (136-145); TOT PROT 5.2 g/dl (6.4-8.2); URIC ACID 2.9 mg/dL (2.6-7.2)
--- NOTE | 2017-09-17 09:57 | PN ---
Progress Note (short form) - Note Progress Note: Patient seen and examined. Pt feels better. She denies any complains. O/E: general: NAD HEENT: NCAT, no LAD Cor: RRR Lungs: CTA b/l Neuro: AAOX3 LE: no LE edema Last Vital Signs Temp Pulse Resp BP Pulse Ox 98 F 58 L 20 116/64 96 09/16/17 23:00 09/16/17 23:00 09/16/17 23:00 09/16/17 23:00 09/16/17 20:35 CBC, BMP 09/17/17 06:00 09/17/17 06:00 Current Medications Generic Name Dose Route Start Last Admin Trade Name Freq PRN Reason Stop Dose Admin Allopurinol 300 mg 09/15/17 13:00 09/16/17 09:32 Zyloprim - PO 300 mg DAILY JOHN Administration Alprazolam 0.5 mg 09/16/17 22:00 09/16/17 22:04 Xanax - PO 0.5 mg DAILY@2200 JOHN Administration Docusate Sodium 100 mg 09/16/17 18:45 09/16/17 21:19 Colace - PO 100 mg DAILY JOHN Administration IV Flush 10 ml 09/15/17 13:39 Chelle-Cath Flush IVPUSH PRN PRN FLUSH Sodium Chloride 1,000 mls @ 100 mls/hr 09/15/17 12:30 09/16/17 21:19 Normal Saline - IV 100 mls/hr ASDIR JOHN Administration Doxorubicin HCl 15 mg/ 1,011.25 mls @ 42.135 mls/hr 09/16/17 14:00 09/16/17 18:59 Etoposide 75 mg/ Sodium IV 09/17/17 13:59 42.135 mls/hr Chloride ONCE ONE Administration Ondansetron HCl 8 mg/ Sodium 104 mls @ 208 mls/hr 09/17/17 13:30 Chloride IVPB 09/17/17 13:59 ONCE ONE Doxorubicin HCl 15 mg/ 1,011.85 mls @ 42.16 mls/hr 09/17/17 14:00 Etoposide 75 mg/ Vincristine IV 09/18/17 13:59 Sulfate 0.6 mg/ Sodium ONCE ONE Chloride Prednisone 80 mg/ Prednisone 90 mg 09/17/17 10:00 10 mg PO 09/17/17 10:01 ONCE ONE Senna 1 tab 09/16/17 22:00 09/16/17 21:19 Senna - PO 1 tab HS JOHN Administration Ms. Cantu is here for C2 DA-EPOCH for Mediastinal DLBCL Today C2D3 daily labs c/w vincristine too mild neuropathy in the fingers ( sporadic ) to assess again post Cycle 2 , to consider adjustments in C3 Prednisone 90mg today TLS ppx : witH Allopurinol daily OI ppx: to be resumed post d/c d/w RN
[2017-09-17] MEDS ORDERED: PREDNISONE PO ONE ×2 (10:00→11:30)
[2017-09-17] MEDS ORDERED: predniSONE 10 MG TABLET (UD) ONE (11:25)
[2017-09-17] MEDS ORDERED: predniSONE 20 MG TABLET (UD) ONE (11:25)
[2017-09-17] MEDS: ALLOPURINOL 300 MG TABLET (FP) PO SCH (11:37)
[2017-09-17] MEDS: DOCUSATE SODIUM 100 MG CAPSULE (FP) PO SCH ×2 (11:38→21:51)
[2017-09-17] MEDS ORDERED: ONDANSETRON INJECTION 8 MG in SODIUM CHLORIDE 100 ML IVPB ONE ×2 (11:45→17:45)
[2017-09-17] MEDS: SODIUM CHLORIDE 1,000 ML IV SCH ×2 (13:01→18:43)
[2017-09-17] MEDS ORDERED: ETOPOSIDE IV ONE (14:00)
[2017-09-17] MEDS ORDERED: DOXORUBICIN HCL IV ONE (14:00)
[2017-09-17] MEDS ORDERED: [UNRECOGNIZED DRUG - OTHER] IV ONE (14:00)
[2017-09-17 15:18] LABS: ANISOCYTOSIS 1+
[2017-09-17] MEDS: SENNOSIDES 8.6MG TABLET (FP) PO SCH (21:52)
[2017-09-17] MEDS: ALPRAZolam 0.25 MG TABLET PO SCH (21:53)
[2017-09-18] MEDS: SODIUM CHLORIDE 1,000 ML IV SCH ×3 (03:58→20:33)
[2017-09-18 08:06] LABS: BASO % 0.2 % (0-2.0); EOS % 0.2 % (0-4.5); HEMATOCRIT 28.5 % (32.4-45.2); HEMOGLOBIN 9.2 GM/dL (10.7-15.3); LYMPH % 6.8 % (8-40); MCH 28.1 pg (25.7-33.7); MCHC 32.2 g/dl (32.0-36.0); MEAN CELL VOLUME 87.4 fl (80-96); MEAN PLT VOLUME 8.4 fl (7.5-11.1); MONO % 11.8 % (3.8-10.2); PLATELET COUNT 198 K/MM3 (134-434); RBC 3.26 M/mm3 (3.60-5.2); RDW 21.9 % (11.6-15.6); WHITE BLOOD COUNT 4.7 K/mm3 (4.0-10.0)
[2017-09-18 08:09] LABS: ALBUMIN 2.5 g/dl (3.4-5.0); ALK PHOS 57 U/L (45-117); ANION GAP 8 (8-16); BILIRUBIN,TOTAL 0.5 mg/dL (0.2-1.0); BLOOD UREA NITROGEN 14 mg/dL (7-18); CALCIUM 8.1 mg/dL (8.5-10.1); CHLORIDE 111 mmol/L (98-107); CO2 24 mmol/L (21-32); CREATININE 0.5 mg/dL (0.55-1.02); GLUCOSE,RANDOM 69 mg/dL (74-106); LDH 114 U/L (84-246); POTASSIUM 3.8 mmol/L (3.5-5.1); SGOT/AST 12 U/L (15-37); SGPT/ALT 26 U/L (12-78); SODIUM 143 mmol/L (136-145); URIC ACID 2.9 mg/dL (2.6-7.2)
[2017-09-18] MEDS ORDERED: PREDNISONE PO ONE (10:00)
[2017-09-18] MEDS: PANTOPRAZOLE 40 MG TABLET (FP) PO SCH (10:58)
[2017-09-18] MEDS: ALLOPURINOL 300 MG TABLET (FP) PO SCH (10:58)
[2017-09-18] MEDS: DOCUSATE SODIUM 100 MG CAPSULE (FP) PO SCH ×2 (10:58→23:06)
[2017-09-18] MEDS ORDERED: ONDANSETRON INJECTION 8 MG in SODIUM CHLORIDE 100 ML IVPB ONE (13:30)
[2017-09-18] MEDS ORDERED: [UNRECOGNIZED DRUG - OTHER] IV ONE (14:00)
[2017-09-18] MEDS ORDERED: DOXORUBICIN HCL IV ONE (14:00)
[2017-09-18] MEDS ORDERED: ETOPOSIDE IV ONE (14:00)
[2017-09-18] MEDS ORDERED: FUROSEMIDE 40 MG/4 ML INJECTABLE VIAL IVPUSH ONE (18:30)
--- NOTE | 2017-09-18 20:15 | PN ---
Progress Note (short form) - Note Progress Note: Patient seen and examined c/o feeling bloated No abdominalpain/cramping. Denies tingling/numbness Last Vital Signs Temp Pulse Resp BP Pulse Ox 97.7 F 70 18 124/79 98 09/18/17 18:33 09/18/17 18:33 09/18/17 18:33 09/18/17 18:33 09/18/17 09:00 Cor: RSR, No murmurs, No gallops Lungs: Clear to P&A Abd: Soft, Normal bowel sounds, No organomegaly Ext:No significant edema Abnormal Lab Results 09/18/17 09/18/17 06:00 06:00 RBC 3.26 L Hgb 9.2 L Hct 28.5 L RDW 21.9 H Lymphocytes % 6.8 L D Monocytes % 11.8 H Chloride 111 H Creatinine 0.5 L Random Glucose 69 L Calcium 8.1 L AST 12 L Total Protein 5.0 L Albumin 2.5 L Active Medications Generic Name Dose Route Start Last Admin Trade Name Freq PRN Reason Stop Dose Admin Allopurinol 300 mg 09/15/17 13:00 09/18/17 10:58 Zyloprim - PO 300 mg DAILY JOHN Administration Alprazolam 0.5 mg 09/16/17 22:00 09/17/17 21:53 Xanax - PO 0.5 mg DAILY@2200 JOHN Administration Docusate Sodium 100 mg 09/17/17 22:00 09/18/17 10:58 Colace - PO 100 mg BID JOHN Administration IV Flush 10 ml 09/15/17 13:39 Chelle-Cath Flush IVPUSH PRN PRN FLUSH Doxorubicin HCl 15 mg/ 1,011.85 mls @ 42.16 mls/hr 09/18/17 14:00 09/18/17 17 :26 Etoposide 75 mg/ Vincristine IV 09/19/17 13:59 42.16 mls/hr Sulfate 0.6 mg/ Sodium ONCE ONE Administration Chloride Cyclophosphamide 1,120 mg/ 306 mls @ 306 mls/hr 09/20/17 09:00 Sodium Chloride IVPB 09/20/17 09:59 ONCE ONE Ondansetron HCl 12 mg/ Sodium 106 mls @ 212 mls/hr 09/20/17 08:00 Chloride IVPB 09/20/17 08:29 ONCE ONE Sodium Chloride 1,000 mls @ 60 mls/hr 09/18/17 18:17 Normal Saline - IV ASDIR JOHN Pantoprazole Sodium 40 mg 09/18/17 10:00 09/18/17 10:58 Protonix - PO 40 mg DAILY JOHN Administration Pegfilgrastim 6 mg 09/21/17 08:00 Neulasta - SQ 09/21/17 08:01 ONCE ONE Prednisone 80 mg/ Prednisone 90 mg 09/19/17 10:00 10 mg PO 09/19/17 10:01 ONCE ONE Senna 2 tab 09/17/17 22:00 09/17/17 21:52 Senna - PO 2 tab HS JOHN Administration A?P 57 y/o with primary mediastinal B cell lymphoma, on [id number] vincristine dose reduced by 25% Tolerating well will dose lasix decrease iv fluids monitor tumor lysis labs discussed with Dr. Landers
[2017-09-18] MEDS: ALPRAZolam 0.25 MG TABLET PO SCH (23:05)
[2017-09-18] MEDS: SENNOSIDES 8.6MG TABLET (FP) PO SCH (23:06)
[2017-09-19] MEDS: SODIUM CHLORIDE 1,000 ML IV SCH ×2 (01:58→20:26)
[2017-09-19 07:38] LABS: BASO % 0.3 % (0-2.0); EOS % 0.5 % (0-4.5); HEMATOCRIT 30.5 % (32.4-45.2); HEMOGLOBIN 9.8 GM/dL (10.7-15.3); LYMPH % 7.8 % (8-40); MCHC 32.2 g/dl (32.0-36.0); MEAN CELL VOLUME 86.7 fl (80-96); MEAN PLT VOLUME 8.1 fl (7.5-11.1); MONO % 7.1 % (3.8-10.2); NEUT % 84.3 % (42.8-82.8); PLATELET COUNT 218 K/MM3 (134-434); RBC 3.52 M/mm3 (3.60-5.2); WHITE BLOOD COUNT 4.5 K/mm3 (4.0-10.0)
[2017-09-19 08:26] LABS: ALBUMIN 2.7 g/dl (3.4-5.0); ANION GAP 7 (8-16); BLOOD UREA NITROGEN 16 mg/dL (7-18); CALCIUM 8.4 mg/dL (8.5-10.1); CHLORIDE 106 mmol/L (98-107); CO2 28 mmol/L (21-32); GLUCOSE,RANDOM 62 mg/dL (74-106); POTASSIUM 3.6 mmol/L (3.5-5.1); SGOT/AST 14 U/L (15-37); SGPT/ALT 29 U/L (12-78); SODIUM 141 mmol/L (136-145)
[2017-09-19 08:29] LABS: ALK PHOS 60 U/L (45-117); CREATININE 0.5 mg/dL (0.55-1.02); TOT PROT 5.4 g/dl (6.4-8.2)
[2017-09-19] MEDS ORDERED: PREDNISONE PO ONE (10:00)
[2017-09-19] MEDS ORDERED: ACETAMINOPHEN 325 MG TABLET (FP) PO PRN (10:18)
[2017-09-19] MEDS: PANTOPRAZOLE 40 MG TABLET (FP) PO SCH (10:41)
[2017-09-19] MEDS: DOCUSATE SODIUM 100 MG CAPSULE (FP) PO SCH ×3 (10:41→22:19)
[2017-09-19] MEDS: ALLOPURINOL 300 MG TABLET (FP) PO SCH (10:42)
[2017-09-19] MEDS ORDERED: predniSONE 10 MG TABLET (UD) ONE (10:47)
[2017-09-19] MEDS ORDERED: predniSONE 20 MG TABLET (UD) ONE (10:48)
--- NOTE | 2017-09-19 12:41 | PN ---
Progress Note (short form) - Note Progress Note: Patient seen and examined c/o feeling bloated No abdominal pain/cramping. Denies tingling/numbness Last Vital Signs Temp Pulse Resp BP Pulse Ox 98.5 F 56 L 18 114/56 98 09/19/17 05:36 09/19/17 05:36 09/19/17 05:36 09/19/17 05:36 09/18/17 09:00 Cor: RSR, No murmurs, No gallops Lungs: Clear to P&A Abd: Soft, Normal bowel sounds, No organomegaly Ext:No significant edema Abnormal Lab Results 09/19/17 09/19/17 06:35 06:35 RBC 3.52 L Hgb 9.8 L Hct 30.5 L RDW 21.0 H Neutrophils % 84.3 H Lymphocytes % 7.8 L Anion Gap 7 L Creatinine 0.5 L Random Glucose 62 L Calcium 8.4 L AST 14 L Total Protein 5.4 L Albumin 2.7 L Active Medications Generic Name Dose Route Start Last Admin Trade Name Freq PRN Reason Stop Dose Admin Acetaminophen 650 mg 09/19/17 10:18 09/19/17 10:40 Tylenol - PO 650 mg Q6H PRN Administration FEVER Allopurinol 300 mg 09/15/17 13:00 09/19/17 10:42 Zyloprim - PO 300 mg DAILY JOHN Administration Alprazolam 0.5 mg 09/16/17 22:00 09/18/17 23:05 Xanax - PO 0.5 mg DAILY@2200 JOHN Administration Dexamethasone Sodium Phosphate 10 mg 09/20/17 08:00 Decadron Injection - IVPUSH 09/20/17 08:01 ONCE ONE Docusate Sodium 100 mg 09/17/17 22:00 09/19/17 10:41 Colace - PO 100 mg BID JOHN Administration IV Flush 10 ml 09/15/17 13:39 Chelle-Cath Flush IVPUSH PRN PRN FLUSH Doxorubicin HCl 15 mg/ 1,011.85 mls @ 42.16 mls/hr 09/18/17 14:00 09/18/17 17 :26 Etoposide 75 mg/ Vincristine IV 09/19/17 13:59 42.16 mls/hr Sulfate 0.6 mg/ Sodium ONCE ONE Administration Chloride Cyclophosphamide 1,120 mg/ 306 mls @ 306 mls/hr 09/20/17 09:00 Sodium Chloride IVPB 09/20/17 09:59 ONCE ONE Ondansetron HCl 12 mg/ Sodium 106 mls @ 212 mls/hr 09/20/17 08:00 Chloride IVPB 09/20/17 08:29 ONCE ONE Sodium Chloride 1,000 mls @ 60 mls/hr 09/18/17 18:17 09/19/17 01:58 Normal Saline - IV 60 mls/hr ASDIR JOHN Administration Pantoprazole Sodium 40 mg 09/18/17 10:00 09/19/17 10:41 Protonix - PO 40 mg DAILY JOHN Administration Pegfilgrastim 6 mg 09/21/17 08:00 Neulasta - SQ 09/21/17 08:01 ONCE ONE Senna 2 tab 09/17/17 22:00 09/18/17 23:06 Senna - PO 2 tab HS JOHN Administration A?P 57 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
[2017-09-19] MEDS ORDERED: DEXAMETHASONE SOD PHOSPHATE 20 MG/5 ML VIAL IVPB ONE (12:46)
[2017-09-19] MEDS ORDERED: ONDANSETRON IVPB ONE (13:30)
[2017-09-19] MEDS ORDERED: SODIUM CHLORIDE IVPB ONE ×2 (13:30→14:00)
[2017-09-19] MEDS ORDERED: POLYETHYLENE GLYCOL 3350 119 GM BTL PO ONE (13:44)
[2017-09-19] MEDS ORDERED: CYCLOPHOSPHAMIDE IVPB ONE (14:00)
[2017-09-19] MEDS: SENNOSIDES 8.6MG TABLET (FP) PO SCH (22:19)
[2017-09-19] MEDS: ALPRAZolam 0.25 MG TABLET PO SCH (22:19)
[2017-09-20] MEDS: DOCUSATE SODIUM 100 MG CAPSULE (FP) PO SCH ×2 (06:19→16:03)
[2017-09-20 07:20] LABS: ALBUMIN 2.8 g/dl (3.4-5.0); ANION GAP 6 (8-16); BLOOD UREA NITROGEN 14 mg/dL (7-18); CALCIUM 8.7 mg/dL (8.5-10.1); CHLORIDE 105 mmol/L (98-107); CO2 30 mmol/L (21-32); GLUCOSE,RANDOM 68 mg/dL (74-106); POTASSIUM 3.7 mmol/L (3.5-5.1); SODIUM 141 mmol/L (136-145); URIC ACID 3.1 mg/dL (2.6-7.2)
[2017-09-20 07:23] LABS: ALK PHOS 65 U/L (45-117); BILIRUBIN,TOTAL 0.9 mg/dL (0.2-1.0); CREATININE 0.5 mg/dL (0.55-1.02); LDH 112 U/L (84-246); SGOT/AST 13 U/L (15-37); SGPT/ALT 29 U/L (12-78); TOT PROT 5.5 g/dl (6.4-8.2)
[2017-09-20 07:31] LABS: BASO % 0.2 % (0-2.0); EOS % 0.9 % (0-4.5); HEMATOCRIT 30.4 % (32.4-45.2); HEMOGLOBIN 9.9 GM/dL (10.7-15.3); MCH 28.2 pg (25.7-33.7); MCHC 32.5 g/dl (32.0-36.0); MEAN CELL VOLUME 86.9 fl (80-96); MEAN PLT VOLUME 8.2 fl (7.5-11.1); NEUT % 89.9 % (42.8-82.8); PLATELET COUNT 215 K/MM3 (134-434); RDW 21.4 % (11.6-15.6); WHITE BLOOD COUNT 5.9 K/mm3 (4.0-10.0)
[2017-09-20] MEDS ORDERED: DEXAMETHASONE SOD PHOSPHATE 20 MG/5 ML VIAL IVPB ONE (08:00)
[2017-09-20] MEDS ORDERED: SODIUM CHLORIDE IVPB ONE ×3 (08:00→09:00)
[2017-09-20] MEDS ORDERED: DEXAMETHASONE SOD PHOSPHATE 10 MG/1 ML VIAL IVPUSH ONE ×2 (08:00→08:45)
[2017-09-20] MEDS ORDERED: ONDANSETRON INJECTION 8 MG in SODIUM CHLORIDE 100 ML IVPB ONE (08:00)
[2017-09-20] MEDS ORDERED: ONDANSETRON IVPB ONE ×2 (08:00→08:45)
[2017-09-20] MEDS ORDERED: CYCLOPHOSPHAMIDE IVPB ONE (09:00)
[2017-09-20] MEDS ORDERED: PEGFILGRASTIM 6 MG/0.6 ML DISP.SYRIN SQ ONE (10:00)
[2017-09-20] MEDS: ALLOPURINOL 300 MG TABLET (FP) PO SCH (10:48)
[2017-09-20] MEDS: PANTOPRAZOLE 40 MG TABLET (FP) PO SCH (10:48)
--- NOTE | 2017-09-20 13:12 | PN ---
Progress Note (short form) - Note Progress Note: Patient seen and examined Feels well. Denies any complaints Last Vital Signs Temp Pulse Resp BP Pulse Ox 97.9 F 70 20 112/68 98 09/20/17 10:08 09/20/17 10:08 09/20/17 10:08 09/20/17 10:08 09/19/17 20:27 Cor: RSR, No murmurs, No gallops Lungs: Clear to P&A Abd: Soft, Normal bowel sounds, No organomegaly Ext:No significant edema Abnormal Lab Results 09/20/17 09/20/17 06:00 06:00 RBC 3.50 L Hgb 9.9 L Hct 30.4 L RDW 21.4 H Neutrophils % 89.9 H Lymphocytes % 6.0 L D Monocytes % 3.0 L Anion Gap 6 L Creatinine 0.5 L Random Glucose 68 L AST 13 L Total Protein 5.5 L Albumin 2.8 L Active Medications Generic Name Dose Route Start Last Admin Trade Name Freq PRN Reason Stop Dose Admin Acetaminophen 650 mg 09/19/17 10:18 09/19/17 10:40 Tylenol - PO 650 mg Q6H PRN Administration FEVER Allopurinol 300 mg 09/15/17 13:00 09/20/17 10:48 Zyloprim - PO 300 mg DAILY JOHN Administration Alprazolam 0.5 mg 09/16/17 22:00 09/19/17 22:19 Xanax - PO 0.5 mg DAILY@2200 JOHN Administration Docusate Sodium 100 mg 09/19/17 14:00 09/20/17 06:19 Colace - PO 100 mg TID JOHN Administration IV Flush 10 ml 09/15/17 13:39 Chelle-Cath Flush IVPUSH PRN PRN FLUSH Sodium Chloride 1,000 mls @ 60 mls/hr 09/18/17 18:17 09/19/17 20:26 Normal Saline - IV 60 mls/hr ASDIR JOHN Administration Pantoprazole Sodium 40 mg 09/18/17 10:00 09/20/17 10:48 Protonix - PO 40 mg DAILY JOHN Administration Pegfilgrastim 6 mg 09/21/17 08:00 Neulasta - SQ 09/21/17 08:01 ONCE ONE Senna 2 tab 09/17/17 22:00 09/19/17 22:19 Senna - PO 2 tab HS JOHN Administration A?P 57 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 Vicente
[2017-09-20 14:40] VITALS: BP 136/72; PULSE 73; TEMP 97.8
[2017-09-20] MEDS ORDERED: NITROFURANTOIN MACROCRYSTAL 50 MG CAPSULE (FP) PO SCH (22:00)
[2017-09-21] MEDS ORDERED: PEGFILGRASTIM 6 MG/0.6 ML DISP.SYRIN SQ ONE (08:00)
[2017-09-21] MEDS ORDERED: SODIUM CHLORIDE IVPB ONE (08:00)
[2017-09-21] MEDS ORDERED: ONDANSETRON IVPB ONE (08:00)
== END 2017-09-20 16:00 | disposition home or self-care (01) | DRG 693 ==
LOC: JONCCHEMO 09:17 → EDSTATUS 09:26 → J7W 09:27
PROVIDERS: ADMIT Internal Medicine Hematology & Oncology; ATTEND Internal Medicine Hematology & Oncology
DX: Z51.11 Encounter for antineoplastic chemotherapy (principal); C83.30 Diffuse large B-cell lymphoma, unspecified site; G62.89 Other specified polyneuropathies; N39.0 Urinary tract infection, site not specified; B96.29 Other Escherichia coli [E. coli] as the cause of diseases classified elsewhere
CPT/HCPCS: 36415; 80053; 80076; 83615; 83735; 84550; 85025; 87086; 87186; 96361; 96367; 96375; 96413; 96415; 96417; J1100; J9070; J9181; J9310; J9370

== ENCOUNTER 2017-09-21 02:50 | Inpatient (IN) | payer OTHER ==
[2017-09-21] MEDS ORDERED: AZTREONAM 1 GM in DEXTROSE 5%-WATER - 50 ML IVPB ONE (02:55)
--- NOTE | 2017-09-21 02:55 | PDOC ---
History of Present Illness - General History Source: Patient Exam Limitations: No Limitations - History of Present Illness Initial Comments: 09/21/17 03:13 The patient is a 57 year old female, with a significant past medical history of large B-cell non-hodgkin's lymphoma, who presents to the emergency department with, measured fever beginning approx. four hours ago. The patient reports a measured fever of approx. 101.8F tonight at approx 11pm. The patient reports she called her oncologist Dr. Avina who advised her to come to the ED for evaluation. The patient reports associated symptoms of chills secondary to the fever. The patient reports she took a Tylenol pm at approx 11 pm with mild relief. The patient reports she has just completed a 5 day course of chemotherapy and returned home today. The patient also reports she took macrobid tonight prior to arrival for a recent UTI that began approx 4 days ago while in the hospital for chemotherapy. The patient reports associated symptoms of dysuria, feeling tired and constipation. She denies recent headache or dizziness. She denies recent nausea, vomit, diarrhea. She denies recent frequency, urgency or hematuria. She denies recent chest pain or shortness of breath. Allergies: Penicillin Social history: Nonsmoker. Denies EtOH use and recreational drug use. Primary Care Physician: Dr. Horton Oncologist: Dr. Avina <North Johnson - Last Filed: 09/21/17 03:13> <Samantha Hartmann - Last Filed: 09/21/17 03:58> - General Stated Complaint: CANCER PATIENT / FEVER Time Seen by Provider: 09/21/17 02:52 Past History <North Johnson - Last Filed: 09/21/17 03:13> - Past Medical History Anemia: No Asthma: No Cancer: Yes (b cell lymphoma) Cardiac Disorders: No CVA: No COPD: No CHF: No Dementia: No Diabetes: No GI Disorders: No Disorders: Yes (Urinary retention) HTN: No Hypercholesterolemia: No Liver Disease: No Seizures: No Thyroid Disease: No - Surgical History Abdominal Surgery: No Appendectomy: No Cardiac Surgery: No Cholecystectomy: No Lung Surgery: No Neurologic Surgery: No Orthopedic Surgery: No - Suicide/Smoking/Psychosocial Hx Smoking Status: No Smoking History: Never smoked Have you smoked in the past 12 months: No Number of Cigarettes Smoked Daily: 0 If you are a former smoker, when did you quit?: n Hx Alcohol Use: No Drug/Substance Use Hx: No Hx Substance Use Treatment: No <HartmannJoSamantha - Last Filed: 09/21/17 03:58> - Past Medical History Allergies/Adverse Reactions: Allergies Allergy/AdvReac Type Severity Reaction Status Date / Time Penicillins Allergy Mild Hives Verified 09/21/17 03:10 Home Medications: Ambulatory Orders Nitrofurantoin Monohyd/M-Cryst [Macrobid 100 mg Capsule] 100 mg PO BID #30 capsule 01/24/12 Review of Systems - Review of Systems Comments:: 09/21/17 03:20 GENERAL/CONSTITUTIONAL: +Measured fever. +Chills. No weakness. HEAD, EYES, EARS, NOSE AND THROAT: No change in vision. No ear pain or discharge. No sore throat. CARDIOVASCULAR: No chest pain or shortness of breath. RESPIRATORY: No cough, wheezing, or hemoptysis. GASTROINTESTINAL: +Constipation. No nausea, vomiting, diarrhea. GENITOURINARY: +Dysuria. No frequency, or change in urination. MUSCULOSKELETAL: No joint or muscle swelling or pain. No neck or back pain. SKIN: No rash NEUROLOGIC: No headache, vertigo, loss of consciousness, or change in strength/ sensation. ENDOCRINE: No increased thirst. No abnormal weight change. HEMATOLOGIC/LYMPHATIC: No anemia, easy bleeding, or history of blood clots. ALLERGIC/IMMUNOLOGIC: No hives or skin allergy. <North Johnson - Last Filed: 09/21/17 03:13> *Physical Exam - Vital Signs Last Vital Signs Temp Pulse Resp BP Pulse Ox 98.6 F 116 H 20 171/89 99 09/21/17 03:10 09/21/17 03:10 09/21/17 03:10 09/21/17 03:10 09/21/17 03:10 - Physical Exam Comments: 09/21/17 03:21 GENERAL: Awake, alert, and fully oriented, in no acute distress HEAD: No signs of trauma EYES: PERRLA, EOMI, sclera anicteric, conjunctiva clear ENT: Auricles normal inspection, hearing grossly normal, nares patent, oropharynx clear without exudates. Moist mucosa NECK: Normal ROM, supple, no lymphadenopathy, JVD, or masses LUNGS: Breath sounds equal, clear to auscultation bilaterally. No wheezes, and no crackles HEART: Regular rate and rhythm, normal S1 and S2, no murmurs, rubs or gallops ABDOMEN: Soft, nontender, normoactive bowel sounds. No guarding, no rebound. No masses EXTREMITIES: Normal range of motion, no edema. No clubbing or cyanosis. No cords, erythema, or tenderness NEUROLOGICAL: Cranial nerves II through XII grossly intact. Normal speech, normal gait SKIN: Warm, Dry, normal turgor, no rashes or lesions noted. <North Johnson - Last Filed: 09/21/17 03:13> *DC/Admit/Observation/Transfer - Attestations Scribe Attestion: 09/21/17 03:22 Documentation prepared by North Johnson, acting as medical physics professor for Samantha Hartmann MD. <North Johnson - Last Filed: 09/21/17 03:13> - Discharge Dispostion Admit: Yes <Samantha Hartmann - Last Filed: 09/21/17 03:58> Diagnosis at time of Disposition: Large B-cell lymphoma, Fever - Discharge Dispostion Condition at time of disposition: Guarded - Referrals Referrals: Jorje Horton MD [Primary Care Provider] -
[2017-09-21] MEDS ORDERED: AZTREONAM 1 GRAM SYRINGE 1 GM/10 ML DISP.SYRIN IVPUSH ONE (03:15)
[2017-09-21 04:16] LABS: URINE APPEARANCE SLCLOUDY; URINE BILIRUBIN NEGATIVE (NEGATIVE); URINE BLOOD 1+ (NEGATIVE); URINE COLOR LTYELLOW; URINE GLUCOSE (UA) NEGATIVE (NEGATIVE); URINE KETONE NEGATIVE (NEGATIVE); URINE NITRITE NEGATIVE (NEGATIVE); URINE PROTEIN NEGATIVE (NEGATIVE); URINE UROBILINOGEN NEGATIVE mg/dL (0.2-1.0)
[2017-09-21] MEDS ORDERED: ONDANSETRON 4 MG/2 ML VIAL IVPB PRN (04:33)
[2017-09-21] MEDS ORDERED: ACETAMINOPHEN 325 MG TABLET (FP) PO PRN (04:34)
[2017-09-21 04:43] LABS: URINE LEUK ESTERASE 3+ (NEGATIVE)
[2017-09-21] MEDS ORDERED: SODIUM CHLORIDE 1,000 ML IV SCH (04:45)
[2017-09-21 04:50] LABS: EPI CELLS RARE /HPF (FEW); URINE BACTERIA MODERATE /hpf (NONE SEEN)
[2017-09-21] MEDS: SODIUM CHLORIDE 1,000 ML IV SCH ×3 (05:17→10:05)
[2017-09-21 05:23] LABS: HEMOGLOBIN 10.6 GM/dL (10.7-15.3); MCH 28.3 pg (25.7-33.7); MCHC 33.2 g/dl (32.0-36.0); MEAN CELL VOLUME 85.4 fl (80-96); MEAN PLT VOLUME 8.5 fl (7.5-11.1); PLATELET COUNT 213 K/MM3 (134-434); RBC 3.74 M/mm3 (3.60-5.2); WHITE BLOOD COUNT 17.4 K/mm3 (4.0-10.0)
[2017-09-21 05:26] LABS: ADD RBC MORPHOLOGY YES
[2017-09-21 05:55] LABS: ALBUMIN 3.3 g/dl (3.4-5.0); ANION GAP 7 (8-16); BILIRUBIN,TOTAL 1.1 mg/dL (0.2-1.0); BLOOD UREA NITROGEN 21 mg/dL (7-18); CALCIUM 8.4 mg/dL (8.5-10.1); CHLORIDE 101 mmol/L (98-107); CO2 29 mmol/L (21-32); CREATININE 0.7 mg/dL (0.55-1.02); GLUCOSE,RANDOM 86 mg/dL (74-106); LDH 175 U/L (84-246); POTASSIUM 3.2 mmol/L (3.5-5.1); SGOT/AST 19 U/L (15-37); SGPT/ALT 35 U/L (12-78); SODIUM 137 mmol/L (136-145); TOT PROT 6.1 g/dl (6.4-8.2)
[2017-09-21 05:56] LABS: ALK PHOS 78 U/L (45-117)
[2017-09-21 06:26] VITALS: BMI 23.0
[2017-09-21 06:42] LABS: ANISOCYTOSIS 2+; PLATELET ESTIMATE ADEQUATE
[2017-09-21 07:56] LABS: URIC ACID 3.4 mg/dL (2.6-7.2)
[2017-09-21] MEDS ORDERED: POTASSIUM CHLORIDE ORAL LIQUID 20 MEQ/15 ML PO ONE (09:27)
[2017-09-21] MEDS ORDERED: AZTREONAM 2 GM in DEXTROSE 5%-WATER - 100 ML IVPB ONE (09:30)
[2017-09-21] MEDS: PANTOPRAZOLE 40 MG TABLET (FP) PO SCH (09:39)
[2017-09-21] MEDS: ALLOPURINOL 300 MG TABLET (FP) PO SCH (09:40)
[2017-09-21] MEDS: valACYclovir HCL 500 MG TABLET (FP) PO SCH (09:40)
--- NOTE | 2017-09-21 10:37 | PN ---
Progress Note (short form) - Note Progress Note: ID Full note dictated Febrile with rigor at home Recent Cipro prophylaxis Selected Entries 09/21/17 06:00 Temperature 98.5 F Pulse Rate 103 H Respiratory 20 Rate Blood Pressure 118/64 Weight 118 lb NAD Microbiology 09/21/17 05:00 Nasopharyngeal Swab Influenza Types A,B Antigen (JUDITH) - Final 09/21/17 05:00 Nasopharyngeal Swab - Final Laboratory Tests 09/21/17 09/21/17 03:20 04:30 BUN 21 H Creatinine 0.7 Total Bilirubin 1.1 H D LD Total 175 Urine WBC (Auto) 263 Urine Bacteria Moderate Assessment Lymphoma UTI Fever PCN allergy as child unknown reaction Plan Cefepime 2 grs q 8 H pending blood urine cultures Delmi SONI Problem List - Problems (1) UTI (urinary tract infection) Code(s): N39.0 - URINARY TRACT INFECTION, SITE NOT SPECIFIED (2) Fever Code(s): R50.9 - FEVER, UNSPECIFIED (3) Large B-cell lymphoma Code(s): C85.10 - UNSPECIFIED B-CELL LYMPHOMA, UNSPECIFIED SITE
[2017-09-21] MEDS ORDERED: CEFEPIME HCL/D5W 2 GM/50 ML BAG IVPB SCH ×2 (11:00→18:00)
--- NOTE | 2017-09-21 11:36 | HP ---
Admitting History and Physical - Admission Chief Complaint: Fever ,rigors History of Present Illness: Pulmonary "B" cell lymphoma on modified R-EPOCH - completed cycle 2 History Source: Patient, Medical Record Limitations to Obtaining History: No Limitations - Past Medical History Renal/: Yes: Other (urethral stenosi and urinary regention-self catherizes one kidney) ...LMP: 06/26/14 ...: No - Smoking History Smoking history: Never smoked Have you smoked in the past 12 months: No Aproximately how many cigarettes per day: 0 If you are a former smoker, when did you quit?: n - Alcohol/Substance Use Hx Alcohol Use: No Home Medications - Allergies Allergies/Adverse Reactions: Allergies Allergy/AdvReac Type Severity Reaction Status Date / Time Penicillins Allergy Mild Hives Verified 09/21/17 03:10 - Home Medications Home Medications: Ambulatory Orders Allopurinol 300 mg PO DAILY 09/21/17 Nitrofurantoin Monohyd/M-Cryst [Macrobid -] 100 mg PO BID 09/21/17 Omeprazole 20 mg PO DAILY 09/21/17 Ondansetron HCl [Zofran] 8 mg PO DAILY 09/21/17 Polyethylene Glycol 3350 [Miralax (For Daily Use) -] 17 gm PO DAILY 09/21/17 Sennosides/Docusate Sodium [Senna-Docusate Sodium Tablet] 1 each PO DAILY Sulfamethoxazole/Trimethoprim [Bactrim Ds -] 1 tab PO DAILY 09/21/17 Valacyclovir HCl [Valtrex] 500 mg PO DAILY 09/21/17 Review of Systems - Review of Systems Constitutional: reports: Chills, Fever. denies: Malaise, Weakness Eyes: denies: Blurred Vision HENT: denies: Difficult Swallowing, Epistaxis Neck: denies: Decreased ROM, Swollen Glands Cardiovascular: denies: Chest Pain, Shortness of Breath Respiratory: denies: Exercise Intolerance, SOB on Exertion Gastrointestinal: denies: Diarrhea, Nausea, Vomiting Genitourinary: reports: Dysuria Breasts: reports: No Symptoms Reported Musculoskeletal: reports: No Symptoms Integumentary: reports: No Symptoms Neurological: reports: No Symptoms Endocrine: reports: No Symptoms Hematology/Lymphatic: reports: No Symptoms Psychiatric: reports: No Symptoms Physical Examination Vital Signs: Vital Signs Temperature 98.5 F 09/21/17 06:00 Pulse Rate 103 H 09/21/17 06:00 Respiratory Rate 20 09/21/17 06:00 Blood Pressure 118/64 09/21/17 06:00 O2 Sat by Pulse Oximetry (%) 96 09/21/17 06:00 Constitutional: Yes: No Distress Eyes: Yes: EOM Intact, PERRL. No: Sclera Icterus HENT: Yes: Atraumatic, Normocephalic, Rhinnorhea. No: Epistaxis, Hoarseness, Nasal Congestion Neck: No: Lymphadenopathy, Tenderness Cardiovascular: Yes: Regular Rate and Rhythm. No: Murmur Respiratory: Yes: Regular, CTA Bilaterally Gastrointestinal: Yes: Normal Bowel Sounds Renal/: No: CVA Tenderness - Left, CVA Tenderness - Right Musculoskeletal: Yes: WNL Extremities: Yes: WNL Edema: No Integumentary: Yes: WNL Neurological: Yes: WNL ...Motor Strength: WNL Psychiatric: Yes: WNL Labs: CBC, BMP 09/21/17 04:30 09/21/17 04:30 Problem List - Problems (1) Large B-cell lymphoma Assessment/Plan: S/P modified R-EPOCH cycle d7. Code(s): C85.10 - UNSPECIFIED B-CELL LYMPHOMA, UNSPECIFIED SITE (2) UTI (urinary tract infection) Assessment/Plan: Febrile, chills, Presumptive UTI and infection. For ID consult, antibiotics. Code(s): N39.0 - URINARY TRACT INFECTION, SITE NOT SPECIFIED
[2017-09-21] MEDS ORDERED: POTASSIUM CHLORIDE TABS 20 MEQ TABLET.ER (FP) PO ONE ×2 (11:37→14:15)
--- NOTE | 2017-09-21 13:17 | CONS ---
DATE OF CONSULTATION: DATE OF DICTATION: 09/21/2017 INFECTIOUS DISEASE CONSULTATION HISTORY OF PRESENT ILLNESS: This is a 57-year-old female with a history of large cell non-Hodgkin lymphoma who presents to the hospital with shaking chills and fever to 101.9. The patient had a mediastinal lymphoma diagnosed and had her first cycle of chemotherapy around Christmastime. She recently had a second cycle of chemotherapy and was in the hospital receiving chemo right up until yesterday when she went home after getting her chemo. She has a history of urinary retention and self-catheterizes herself for many years. She has been ciprofloxacin prophylaxis recently during her chemotherapy, but this was recently discontinued. She went home from the hospital yesterday and then last night experienced onset of shaking chills and fever. She notes that the urine is cloudy and foul smelling. She denies any back pain, abdominal pain, shortness of breath, or cough. I am asked to see her for further evaluation and treatment. PAST MEDICAL HISTORY: As noted above. History of nephrectomy CURRENT MEDICATIONS: Include Macrobid. ALLERGIES: PENICILLIN WITH A RASH A CHILD. SHE HAS NO REMEMBRANCE OF ANYTHING SPECIFIC. SOCIAL HISTORY: from her . Denies alcohol or recreational drug use. HIV status unknown. FAMILY HISTORY: Reviewed, noncontributory. REVIEW OF SYSTEMS: Respiratory: No cough, shortness of breath. Cardiac: No chest pain or palpitations. Gastrointestinal: No nausea, vomiting, diarrhea. Genitourinary: As noted in history of present illness. PHYSICAL EXAM: General: She was an alert female in no acute distress. Vital Signs: Temperature was 98.5, pulse 103, blood pressure 118/64, respirations 20. Neck: Supple without adenopathy. HEENT: Reveals no oral candidiasis. Chest: Symmetrical with a right Port-A-Cath in situ. Lungs: Clear to P and A. Heart: S1, S2, regular rhythm without audible murmur. Abdomen: Soft, nontender. Without hepatosplenomegaly, guarding, or rebound. Extremities: Without clubbing, cyanosis, or edema. No CVA tenderness. LABORATORY STUDIES: The white count was 17.4 with a hemoglobin 10.6, platelets 213 with 98% polys. BUN 21, creatinine 0.7. Liver enzymes within normal limits. Urinalysis 3+ leukocyte esterase, 260 white cells, 15 RBCs, with moderate bacteria. ASSESSMENT: A 57-year-old female with B-cell lymphoma status post recent cycle 2 chemotherapy, history of urinary retention, self-catheterizes herself, presents with abrupt onset of shaking chills and fever. Findings consistent with urinary tract infection. PLAN: Taking into consideration recent ciprofloxacin for prophylaxis as well as QUESTIONABLE PENICILLIN ALLERGY as a child, I will treat her with cefepime 2 g IV every 8 hours pending blood and urine cultures. Case was discussed with Dr. Avina. She has already received a dose of Aztreonam as initial treatment. CARMEN LEYVA M.D. [id number] MTDD
[2017-09-21] MEDS ORDERED: POLYETHYLENE GLYCOL 3350 119 GM BTL PO ONE (14:45)
[2017-09-21] MEDS: DOCUSATE SODIUM 100 MG CAPSULE (FP) PO SCH ×2 (16:02→21:33)
[2017-09-21] MEDS: CEFEPIME 2 GM in DEXTROSE 5%-WATER - 100 ML IVPB SCH (16:59)
[2017-09-21] MEDS ORDERED: CEFEPIME HCL 2 GM VIAL (RESTRICTED TO ID) IVPB SCH (18:00)
[2017-09-21] MEDS: TBO-FILGRASTIM 300 MCG/0.5 ML DISP.SYRINGE SQ SCH (21:33)
[2017-09-22] MEDS ORDERED: PT OWN MED DRAWER 7, Y5N ONE ×4 (02:58→18:20)
[2017-09-22] MEDS: CEFEPIME 2 GM in DEXTROSE 5%-WATER - 100 ML IVPB SCH ×3 (03:04→18:01)
[2017-09-22 08:04] LABS: HEMOGLOBIN 9.8 GM/dL (10.7-15.3); MCH 27.7 pg (25.7-33.7); MCHC 31.6 g/dl (32.0-36.0); MEAN CELL VOLUME 87.5 fl (80-96); MEAN PLT VOLUME 8.5 fl (7.5-11.1); PLATELET COUNT 158 K/MM3 (134-434); RBC 3.55 M/mm3 (3.60-5.2); RDW 21.6 % (11.6-15.6); WHITE BLOOD COUNT 26.9 K/mm3 (4.0-10.0)
[2017-09-22 08:08] LABS: CHLORIDE 102 mmol/L (98-107); POTASSIUM 3.8 mmol/L (3.5-5.1); SODIUM 138 mmol/L (136-145)
[2017-09-22 08:18] LABS: ALK PHOS 69 U/L (45-117); ANION GAP 8 (8-16); BLOOD UREA NITROGEN 14 mg/dL (7-18); CALCIUM 8.7 mg/dL (8.5-10.1); CO2 28 mmol/L (21-32); CREATININE 0.6 mg/dL (0.55-1.02); GLUCOSE,RANDOM 62 mg/dL (74-106); LDH 193 U/L (84-246); MAGNESIUM 1.9 mg/dL (1.8-2.4); SGOT/AST 26 U/L (15-37); SGPT/ALT 39 U/L (12-78)
[2017-09-22] MEDS: SODIUM CHLORIDE 1,000 ML IV SCH (08:54)
[2017-09-22] MEDS: DOCUSATE SODIUM 100 MG CAPSULE (FP) PO SCH ×2 (09:03→21:34)
[2017-09-22] MEDS: SULFAMETHOXAZOLE/TRIMETHOPRIM 800MG/160MG D.S. TABLET PO SCH (09:03)
[2017-09-22] MEDS: PANTOPRAZOLE 40 MG TABLET (FP) PO SCH (09:03)
[2017-09-22] MEDS: ALLOPURINOL 300 MG TABLET (FP) PO SCH (09:04)
[2017-09-22] MEDS: valACYclovir HCL 500 MG TABLET (FP) PO SCH (09:04)
[2017-09-22] MEDS: TBO-FILGRASTIM 300 MCG/0.5 ML DISP.SYRINGE SQ SCH (11:00)
[2017-09-22 13:36] LABS: ANISOCYTOSIS 1+; MACROCYTOSIS 0
[2017-09-22 13:41] LABS: PLATELET ESTIMATE ADEQUATE
--- NOTE | 2017-09-22 14:40 | PN ---
Progress Note, Physician History of Present Illness: Awake, alert No complaints Afebrile Tolerating cephalosporin WBC 26 on Granix BC NLF - Current Medication List Current Medications: Active Medications Acetaminophen (Tylenol -) 650 mg PO Q6H PRN PRN Reason: FEVER Allopurinol (Zyloprim -) 300 mg PO DAILY [facility] Last Admin: 09/22/17 09:04 Dose: 300 mg Docusate Sodium (Colace -) 100 mg PO BID [facility] Last Admin: 09/22/17 09:03 Dose: 100 mg Sodium Chloride (Normal Saline -) 1,000 mls @ 75 mls/hr IV ASDIR [facility] Last Admin: 09/22/17 08:54 Dose: 75 mls/hr Cefepime HCl 2 gm/ Dextrose 100 mls @ 200 mls/hr IVPB Q8H-IV [facility] Last Admin: 09/22/17 09:03 Dose: 200 mls/hr Ondansetron HCl (Zofran Injection) 8 mg IVPB Q12H PRN PRN Reason: NAUSEA AND/OR VOMITING Pantoprazole Sodium (Protonix -) 40 mg PO DAILY [facility] Last Admin: 09/22/17 09:03 Dose: 40 mg Tbo-Filgrastim (Granix -) 300 mcg SQ DAILY [facility] Last Admin: 09/21/17 21:33 Dose: 300 mcg Trimethoprim/Sulfamethoxazole (Bactrim Ds -) 1 each PO TuThSa@1000 [facility] Last Admin: 09/22/17 09:03 Dose: 1 each Valacyclovir HCl (Valtrex -) 500 mg PO DAILY [facility] Last Admin: 09/22/17 09:04 Dose: 500 mg - Objective Vital Signs: Vital Signs Temperature 98.7 F 09/22/17 14:05 Pulse Rate 122 H 09/22/17 14:05 Respiratory Rate 18 09/22/17 14:05 Blood Pressure 106/67 09/22/17 14:05 O2 Sat by Pulse Oximetry (%) 97 09/22/17 09:00 Constitutional: Yes: No Distress Cardiovascular: Yes: Regular Rate and Rhythm, S1, S2 Respiratory: Yes: CTA Bilaterally Gastrointestinal: Yes: Normal Bowel Sounds, Soft. No: Tenderness Edema: No Labs: CBC, BMP 09/22/17 06:00 09/22/17 06:00 Assessment/Plan Gram Negative bacteremia/ sepsis Lymphoma s/p chemo S/P nephrectomy PCN allergy Await c/s result Continue cefepime
--- NOTE | 2017-09-22 16:28 | PN ---
Progress Note (short form) - Note Progress Note: Patient seen and examined Complains of non productive hacking cough Undergoes sef -catherization- because of incomplete emptying of bladder. Discussed possible discontinuation of same. Last Vital Signs Temp Pulse Resp BP Pulse Ox 98.7 F 122 H 18 106/67 97 09/22/17 14:05 09/22/17 14:05 09/22/17 14:05 09/22/17 14:05 09/22/17 09:00 HEENT: JACQUES, EOM Intact Oropharynx: No thrush, No mucositis Neck: Supple Nodes: Without adenopathy Cor: RSR, No murmurs, No gallops Lungs: Clear to P&A Abd: Soft, Normal bowel sounds, No organomegaly Ext:No significant edema Skin: No rashes, Integument intact CBC, BMP 09/22/17 06:00 09/22/17 06:00 Current Medications Generic Name Dose Route Start Last Admin Trade Name Freq PRN Reason Stop Dose Admin Acetaminophen 650 mg 09/21/17 09:27 Tylenol - PO Q6H PRN FEVER Allopurinol 300 mg 09/21/17 10:00 09/22/17 09:04 Zyloprim - PO 300 mg DAILY JOHN Administration Docusate Sodium 100 mg 09/21/17 14:45 09/22/17 09:03 Colace - PO 100 mg BID JOHN Administration Sodium Chloride 1,000 mls @ 75 mls/hr 09/21/17 08:15 09/22/17 08:54 Normal Saline - IV 75 mls/hr ASDIR JOHN Administration Cefepime HCl 2 gm/ Dextrose 100 mls @ 200 mls/hr 09/21/17 18:00 09/22/17 09: 03 IVPB 200 mls/hr Q8H-IV JOHN Administration Ondansetron HCl 8 mg 09/21/17 04:33 Zofran Injection IVPB Q12H PRN NAUSEA AND/OR VOMITING Pantoprazole Sodium 40 mg 09/21/17 10:00 09/22/17 09:03 Protonix - PO 40 mg DAILY JOHN Administration Tbo-Filgrastim 300 mcg 09/21/17 18:30 09/22/17 11:00 Granix - SQ 300 mcg DAILY JOHN Administration Trimethoprim/Sulfamethoxazole 1 each 09/22/17 10:00 09/22/17 09:03 Bactrim Ds - PO 1 each TuThSa@1000 JOHN Administration Valacyclovir HCl 500 mg 09/21/17 10:00 09/22/17 09:04 Valtrex - PO 500 mg DAILY JOHN Administration Impression: Presumed urosepsis despite bactrim prophylaxis. Setting of self catherization. Has had several surgeries and multiple assessments for incomplete bladder emptying. Conclusion is that patient needs self catherization. Continues on granix with elevated WBC. Cycle 2 , day 8 s/p modified R-EPOCH chemotherapy. Plan: Continue antibiotics per ID. Continue granix. Will likely need to continue self catherization Problem List - Problems (1) Large B-cell lymphoma Code(s): C85.10 - UNSPECIFIED B-CELL LYMPHOMA, UNSPECIFIED SITE (2) UTI (urinary tract infection) Code(s): N39.0 - URINARY TRACT INFECTION, SITE NOT SPECIFIED
[2017-09-23] MEDS ORDERED: PT OWN MED DRAWER 7, Y5N ONE ×2 (02:07→09:01)
[2017-09-23] MEDS: CEFEPIME 2 GM in DEXTROSE 5%-WATER - 100 ML IVPB SCH ×2 (02:12→09:03)
[2017-09-23] MEDS: ACETAMINOPHEN 325 MG TABLET (FP) PO PRN ×3 (02:12→23:47)
[2017-09-23] MEDS: SODIUM CHLORIDE 1,000 ML IV SCH ×3 (02:13→14:44)
--- NOTE | 2017-09-23 07:36 | PN ---
Progress Note, Physician Chief Complaint: ID Some low grade temps but no toxicity or chills Cefepime continues day 3 - Current Medication List Current Medications: Active Medications Acetaminophen (Tylenol -) 650 mg PO Q6H PRN PRN Reason: FEVER Last Admin: 09/23/17 02:12 Dose: 650 mg Allopurinol (Zyloprim -) 300 mg PO DAILY [facility] Last Admin: 09/22/17 09:04 Dose: 300 mg Docusate Sodium (Colace -) 100 mg PO BID [facility] Last Admin: 09/22/17 21:34 Dose: 100 mg Sodium Chloride (Normal Saline -) 1,000 mls @ 75 mls/hr IV ASDIR [facility] Last Admin: 09/23/17 02:13 Dose: 75 mls/hr Cefepime HCl 2 gm/ Dextrose 100 mls @ 200 mls/hr IVPB Q8H-IV [facility] Last Admin: 09/23/17 02:12 Dose: 200 mls/hr Ondansetron HCl (Zofran Injection) 8 mg IVPB Q12H PRN PRN Reason: NAUSEA AND/OR VOMITING Pantoprazole Sodium (Protonix -) 40 mg PO DAILY [facility] Last Admin: 09/22/17 09:03 Dose: 40 mg Tbo-Filgrastim (Granix -) 300 mcg SQ DAILY [facility] Last Admin: 09/22/17 11:00 Dose: 300 mcg Trimethoprim/Sulfamethoxazole (Bactrim Ds -) 1 each PO TuThSa@1000 [facility] Last Admin: 09/22/17 09:03 Dose: 1 each Valacyclovir HCl (Valtrex -) 500 mg PO DAILY [facility] Last Admin: 09/22/17 09:04 Dose: 500 mg - Objective Vital Signs: Vital Signs Temperature 98.7 F 09/23/17 06:00 Pulse Rate 73 09/23/17 06:00 Respiratory Rate 18 09/23/17 06:00 Blood Pressure 97/55 09/23/17 06:00 O2 Sat by Pulse Oximetry (%) 98 09/22/17 21:00 Constitutional: Yes: Well Nourished, No Distress Eyes: Yes: WNL, Conjunctiva Clear HENT: No: Thrush Neck: Yes: WNL, Supple Cardiovascular: Yes: Regular Rate and Rhythm, S1, S2. No: Murmur Respiratory: Yes: WNL, Regular, CTA Bilaterally. No: Rales, Rhonchi Gastrointestinal: Yes: WNL, Normal Bowel Sounds, Soft. No: Tenderness, Tenderness, Epigastrium Edema: No Problem List - Problems (1) UTI (urinary tract infection) Code(s): N39.0 - URINARY TRACT INFECTION, SITE NOT SPECIFIED (2) Fever Code(s): R50.9 - FEVER, UNSPECIFIED (3) Large B-cell lymphoma Code(s): C85.10 - UNSPECIFIED B-CELL LYMPHOMA, UNSPECIFIED SITE Assessment/Plan Microbiology 09/21/17 05:00 Nasopharyngeal Swab Influenza Types A,B Antigen (JUDITH) - Final 09/21/17 05:00 Nasopharyngeal Swab - Final 09/21/17 03:20 Urine - Urine Clean Catch Urine Culture - Final 09/21/17 04:40 Blood - Peripheral Venous Blood Culture - Preliminary NO GROWTH OBTAINED AFTER 48 HOURS, INCUBATION TO CONTINUE FOR 3 DAYS. 09/21/17 04:30 Blood - Peripheral Venous Blood Culture - Preliminary Non Lactose Fermenting Gnb Laboratory Tests 09/22/17 09/22/17 09/23/17 06:00 06:00 06:00 WBC 26.9 H D Pending Hgb Pending Hct Pending Plt Count Pending BUN 14 Assessment Lymphoma post chemotherapy UTI Gram negative bacteremia Plan Continue Cefepime Check chloé Awad MD
[2017-09-23 07:46] LABS: CHLORIDE 106 mmol/L (98-107); SODIUM 141 mmol/L (136-145)
[2017-09-23 07:54] LABS: ALBUMIN 2.9 g/dl (3.4-5.0); ALK PHOS 74 U/L (45-117); ANION GAP 7 (8-16); BILIRUBIN,TOTAL 0.3 mg/dL (0.2-1.0); BLOOD UREA NITROGEN 11 mg/dL (7-18); CALCIUM 8.5 mg/dL (8.5-10.1); CO2 28 mmol/L (21-32); CREATININE 0.6 mg/dL (0.55-1.02); GLUCOSE,RANDOM 80 mg/dL (74-106); MAGNESIUM 1.9 mg/dL (1.8-2.4); SGOT/AST 19 U/L (15-37); SGPT/ALT 38 U/L (12-78); TOT PROT 5.9 g/dl (6.4-8.2)
[2017-09-23 07:55] LABS: BASO % 0.3 % (0-2.0); EOS % 2.1 % (0-4.5); HEMATOCRIT 29.8 % (32.4-45.2); HEMOGLOBIN 9.5 GM/dL (10.7-15.3); LYMPH % 1.7 % (8-40); MCH 27.9 pg (25.7-33.7); MCHC 31.9 g/dl (32.0-36.0); MEAN CELL VOLUME 87.3 fl (80-96); MEAN PLT VOLUME 8.6 fl (7.5-11.1); MONO % 0.6 % (3.8-10.2); NEUT % 95.3 % (42.8-82.8); PLATELET COUNT 143 K/MM3 (134-434); RBC 3.41 M/mm3 (3.60-5.2); RDW 21.3 % (11.6-15.6); WHITE BLOOD COUNT 11.6 K/mm3 (4.0-10.0)
[2017-09-23] MEDS: valACYclovir HCL 500 MG TABLET (FP) PO SCH (09:03)
[2017-09-23] MEDS: DOCUSATE SODIUM 100 MG CAPSULE (FP) PO SCH ×2 (09:03→23:47)
[2017-09-23] MEDS: ALLOPURINOL 300 MG TABLET (FP) PO SCH (09:03)
[2017-09-23] MEDS: PANTOPRAZOLE 40 MG TABLET (FP) PO SCH (09:03)
--- NOTE | 2017-09-23 09:24 | PN ---
Progress Note (short form) - Note Progress Note: Patient seen and examined continues to have non-productive cough. Otherwise states she feels well. HEENT: JACQUES, EOM Intact Oropharynx: No thrush, No mucositis Neck: Supple Nodes: Without adenopathy Cor: RSR, No murmurs, No gallops Lungs: Clear to P&A Abd: Soft, Normal bowel sounds, No organomegaly Ext:No significant edema Skin: No rashes, Integument intact Last Vital Signs Temp Pulse Resp BP Pulse Ox 98.7 F 73 18 97/55 98 09/23/17 06:00 09/23/17 06:00 09/23/17 06:00 09/23/17 06:00 09/22/17 21:00 CBC, BMP 09/23/17 06:00 09/23/17 06:00 Current Medications Generic Name Dose Route Start Last Admin Trade Name Freq PRN Reason Stop Dose Admin Acetaminophen 650 mg 09/21/17 09:27 09/23/17 02:12 Tylenol - PO 650 mg Q6H PRN Administration FEVER Allopurinol 300 mg 09/21/17 10:00 09/23/17 09:03 Zyloprim - PO 300 mg DAILY JOHN Administration Docusate Sodium 100 mg 09/21/17 14:45 09/23/17 09:03 Colace - PO 100 mg BID JOHN Administration Sodium Chloride 1,000 mls @ 75 mls/hr 09/21/17 08:15 09/23/17 02:13 Normal Saline - IV 75 mls/hr ASDIR JOHN Administration Cefepime HCl 2 gm/ Dextrose 100 mls @ 200 mls/hr 09/21/17 18:00 09/23/17 09: 03 IVPB 200 mls/hr Q8H-IV JOHN Administration Ondansetron HCl 8 mg 09/21/17 04:33 Zofran Injection IVPB Q12H PRN NAUSEA AND/OR VOMITING Pantoprazole Sodium 40 mg 09/21/17 10:00 09/23/17 09:03 Protonix - PO 40 mg DAILY JOHN Administration Tbo-Filgrastim 300 mcg 09/21/17 18:30 09/22/17 11:00 Granix - SQ 300 mcg DAILY JOHN Administration Trimethoprim/Sulfamethoxazole 1 each 09/22/17 10:00 09/22/17 09:03 Bactrim Ds - PO 1 each TuThSa@1000 JOHN Administration Valacyclovir HCl 500 mg 09/21/17 10:00 09/23/17 09:03 Valtrex - PO 500 mg DAILY JOHN Administration Cycle 2 , day 9 s/p modified R-EPOCH chemotherapy. GNB ( Source : urine) Plan: Continue antibiotics per ID. Continue granix. repeat Blood cx c/w OI ppx ( viral ) CXR for non-productive cough for Labs in the am d.w Pt
[2017-09-23] MEDS: TBO-FILGRASTIM 300 MCG/0.5 ML DISP.SYRINGE SQ SCH (12:02)
[2017-09-23] MEDS: CEFTRIAXONE IN IS-OSM DEXTROSE 2 GM/50 ML BAG IVPB SCH (14:44)
[2017-09-24 08:21] LABS: HEMATOCRIT 30.4 % (32.4-45.2); HEMOGLOBIN 9.7 GM/dL (10.7-15.3); MCH 27.9 pg (25.7-33.7); MCHC 31.9 g/dl (32.0-36.0); MEAN CELL VOLUME 87.5 fl (80-96); MEAN PLT VOLUME 8.6 fl (7.5-11.1); PLATELET COUNT 138 K/MM3 (134-434); RBC 3.48 M/mm3 (3.60-5.2); RDW 21.1 % (11.6-15.6); WHITE BLOOD COUNT 8.8 K/mm3 (4.0-10.0)
[2017-09-24 08:23] LABS: BLOOD UREA NITROGEN 10 mg/dL (7-18); CHLORIDE 107 mmol/L (98-107); GLUCOSE,RANDOM 75 mg/dL (74-106); POTASSIUM 4.2 mmol/L (3.5-5.1); SGOT/AST 19 U/L (15-37); SODIUM 142 mmol/L (136-145)
[2017-09-24 08:25] LABS: ALK PHOS 81 U/L (45-117); ANION GAP 6 (8-16); BILIRUBIN,TOTAL 0.3 mg/dL (0.2-1.0); CALCIUM 8.5 mg/dL (8.5-10.1); CO2 29 mmol/L (21-32); CREATININE 0.4 mg/dL (0.55-1.02); LDH 187 U/L (84-246); SGPT/ALT 37 U/L (12-78); TOT PROT 5.8 g/dl (6.4-8.2)
[2017-09-24] MEDS ORDERED: PT OWN MED DRAWER 7, Y5N ONE (09:12)
[2017-09-24] MEDS: SODIUM CHLORIDE 1,000 ML IV SCH (09:16)
[2017-09-24] MEDS: DOCUSATE SODIUM 100 MG CAPSULE (FP) PO SCH ×2 (09:16→22:43)
[2017-09-24] MEDS: ALLOPURINOL 300 MG TABLET (FP) PO SCH (09:16)
[2017-09-24] MEDS: PANTOPRAZOLE 40 MG TABLET (FP) PO SCH (09:16)
[2017-09-24] MEDS: CEFTRIAXONE IN IS-OSM DEXTROSE 2 GM/50 ML BAG IVPB SCH (09:16)
[2017-09-24] MEDS: SULFAMETHOXAZOLE/TRIMETHOPRIM 800MG/160MG D.S. TABLET PO SCH (09:16)
[2017-09-24] MEDS: valACYclovir HCL 500 MG TABLET (FP) PO SCH (09:16)
[2017-09-24] MEDS: TBO-FILGRASTIM 300 MCG/0.5 ML DISP.SYRINGE SQ SCH (10:57)
[2017-09-24 11:22] LABS: ANISOCYTOSIS 1+; MACROCYTOSIS 0; PLATELET ESTIMATE DECREASED
--- NOTE | 2017-09-24 11:52 | PN ---
Progress Note (short form) - Note Progress Note: ID Asymptomatic Afebrile Now on Ceftriaxone Famvir Bactrim Selected Entries 09/24/17 09:00 Temperature 98.1 F Pulse Rate 87 Respiratory 20 Rate Blood Pressure 108/84 Microbiology 09/21/17 04:30 Blood - Peripheral Venous Blood Culture - Final Escherichia Coli 09/21/17 03:20 Urine - Urine Clean Catch Urine Culture - Final 09/23/17 10:08 Blood - Peripheral Venous Blood Culture - Preliminary NO GROWTH OBTAINED AFTER 24 HOURS, INCUBATION TO CONTINUE FOR 4 DAYS. 09/23/17 09:43 Blood - Peripheral Venous Blood Culture - Preliminary NO GROWTH OBTAINED AFTER 24 HOURS, INCUBATION TO CONTINUE FOR 4 DAYS. Laboratory Tests 09/24/17 06:00 WBC 8.8 Hgb 9.7 L Plt Count 138 Microbiology 09/21/17 05:00 Nasopharyngeal Swab Influenza Types A,B Antigen (JUDITH) - Final 09/21/17 05:00 Nasopharyngeal Swab - Final 09/21/17 04:30 Blood - Peripheral Venous Blood Culture - Final Escherichia Coli 09/21/17 03:20 Urine - Urine Clean Catch Urine Culture - Final 09/23/17 10:08 Blood - Peripheral Venous Blood Culture - Preliminary NO GROWTH OBTAINED AFTER 24 HOURS, INCUBATION TO CONTINUE FOR 4 DAYS. 09/23/17 09:43 Blood - Peripheral Venous Blood Culture - Preliminary NO GROWTH OBTAINED AFTER 24 HOURS, INCUBATION TO CONTINUE FOR 4 DAYS. 09/21/17 04:40 Blood - Peripheral Venous Blood Culture - Preliminary NO GROWTH OBTAINED AFTER 72 HOURS, INCUBATION TO CONTINUE FOR 2 DAYS. Assessment Lymphoma UTI gram negative bacteremia not sensitive to any oral options Plan Make arrangement to discharge fuentes on Ceftriaxone 1 gram daily for another 7-8 days either infusion center here or home preferably [facility] Problem List - Problems (1) UTI (urinary tract infection) Code(s): N39.0 - URINARY TRACT INFECTION, SITE NOT SPECIFIED (2) Fever Code(s): R50.9 - FEVER, UNSPECIFIED (3) Large B-cell lymphoma Code(s): C85.10 - UNSPECIFIED B-CELL LYMPHOMA, UNSPECIFIED SITE
--- NOTE | 2017-09-24 14:51 | PN ---
Progress Note (short form) - Note Progress Note: Patient seen and examined cough better. cxr reviewed HEENT: JACQUES, EOM Intact Oropharynx: No thrush, No mucositis Neck: Supple Nodes: Without adenopathy Cor: RSR, No murmurs, No gallops Lungs: Clear to P&A Abd: Soft, Normal bowel sounds, No organomegaly Ext:No significant edema Skin: No rashes, Integument intact Last Vital Signs Temp Pulse Resp BP Pulse Ox 98.7 F 73 18 97/55 98 09/23/17 06:00 09/23/17 06:00 09/23/17 06:00 09/23/17 06:00 09/22/17 21:00 CBC, BMP 09/23/17 06:00 09/23/17 06:00 Current Medications Generic Name Dose Route Start Last Admin Trade Name Freq PRN Reason Stop Dose Admin Acetaminophen 650 mg 09/21/17 09:27 09/23/17 02:12 Tylenol - PO 650 mg Q6H PRN Administration FEVER Allopurinol 300 mg 09/21/17 10:00 09/23/17 09:03 Zyloprim - PO 300 mg DAILY JOHN Administration Docusate Sodium 100 mg 09/21/17 14:45 09/23/17 09:03 Colace - PO 100 mg BID JOHN Administration Sodium Chloride 1,000 mls @ 75 mls/hr 09/21/17 08:15 09/23/17 02:13 Normal Saline - IV 75 mls/hr ASDIR JOHN Administration Cefepime HCl 2 gm/ Dextrose 100 mls @ 200 mls/hr 09/21/17 18:00 09/23/17 09: 03 IVPB 200 mls/hr Q8H-IV JOHN Administration Ondansetron HCl 8 mg 09/21/17 04:33 Zofran Injection IVPB Q12H PRN NAUSEA AND/OR VOMITING Pantoprazole Sodium 40 mg 09/21/17 10:00 09/23/17 09:03 Protonix - PO 40 mg DAILY JOHN Administration Tbo-Filgrastim 300 mcg 09/21/17 18:30 09/22/17 11:00 Granix - SQ 300 mcg DAILY JOHN Administration Trimethoprim/Sulfamethoxazole 1 each 09/22/17 10:00 09/22/17 09:03 Bactrim Ds - PO 1 each TuThSa@1000 JOHN Administration Valacyclovir HCl 500 mg 09/21/17 10:00 09/23/17 09:03 Valtrex - PO 500 mg DAILY JOHN Administration Cycle 2 , day 10 s/p modified R-EPOCH chemotherapy. E.coli bacteremia ( Source : urine) Plan: ID c/s appreciated, discussed dw information technology program manager about logistics of administering abx as an OP. Await approvals for insurance company to come as an OP for infusional abx will c/w rest of the management. pt aware of the plan
[2017-09-25] MEDS: SODIUM CHLORIDE 1,000 ML IV SCH ×2 (06:16→09:48)
[2017-09-25 08:50] VITALS: BP 114/55; PULSE 99; TEMP 98.1
[2017-09-25] MEDS: DOCUSATE SODIUM 100 MG CAPSULE (FP) PO SCH (09:45)
[2017-09-25] MEDS: valACYclovir HCL 500 MG TABLET (FP) PO SCH (09:45)
[2017-09-25] MEDS: ALLOPURINOL 300 MG TABLET (FP) PO SCH (09:45)
[2017-09-25] MEDS: PANTOPRAZOLE 40 MG TABLET (FP) PO SCH (09:45)
[2017-09-25] MEDS ORDERED: CEFTRIAXONE 1 G/50 ML PREMIX 50 ML IVPB SCH (10:00)
[2017-09-25] MEDS: TBO-FILGRASTIM 300 MCG/0.5 ML DISP.SYRINGE SQ SCH (10:00)
--- NOTE | 2017-09-25 10:53 | DS ---
Physical Examination Vital Signs: Vital Signs Temperature 98.1 F 09/25/17 08:49 Pulse Rate 99 H 09/25/17 08:49 Respiratory Rate 18 09/25/17 08:49 Blood Pressure 114/55 09/25/17 08:49 O2 Sat by Pulse Oximetry (%) 97 09/24/17 21:00 Labs: CBC, BMP 09/24/17 06:00 09/24/17 06:00 Discharge Summary Reason For Visit: LARGE B CELL LYMPHOMA Current Active Problems Fever (Acute) Large B-cell lymphoma (Acute) UTI (urinary tract infection) (Acute) Hospital Course: Patient admitted for fevers found to have E coli bacteremia, from urinary source seen by ID being discharged with Out patient Antibiotics Ceftriaxone 1g IVPD daily for 8more days She verbalizes understanding Condition: Good - Instructions Referrals: Jorje Horton MD [Primary Care Provider] - Disposition: HOME - Home Medications Comprehensive Discharge Medication List: Ambulatory Orders Allopurinol 300 mg PO DAILY 09/21/17 Nitrofurantoin Monohyd/M-Cryst [Macrobid -] 100 mg PO BID 09/21/17 Omeprazole 20 mg PO DAILY 09/21/17 Ondansetron HCl [Zofran] 8 mg PO DAILY 09/21/17 Polyethylene Glycol 3350 [Miralax (For Daily Use) -] 17 gm PO DAILY 09/21/17 Sennosides/Docusate Sodium [Senna-Docusate Sodium Tablet] 1 each PO DAILY Sulfamethoxazole/Trimethoprim [Bactrim Ds -] 1 tab PO DAILY 09/21/17 Valacyclovir HCl [Valtrex] 500 mg PO DAILY 09/21/17
--- NOTE | 2017-09-25 10:59 | PN ---
Progress Note (short form) - Note Progress Note: Patient seen and examined For discharge and outpatient antibiotics Minimal cough, No significant SOB or dyspnea No diarrhea, constipation No dysuria, No self cath Last Vital Signs Temp Pulse Resp BP Pulse Ox 98.1 F 99 H 18 114/55 97 09/25/17 08:49 09/25/17 08:49 09/25/17 08:49 09/25/17 08:49 09/24/17 21:00 HEENT: JACQUES, EOM Intact Oropharynx: No thrush, No mucositis Neck: Supple Cor: RSR, No murmurs, No gallops Lungs: Clear to P&A Abd: Soft, Normal bowel sounds, No organomegaly Ext:No significant edema Skin: No rashes, Integument intact CBC, BMP 09/24/17 06:00 09/24/17 06:00 Current Medications Generic Name Dose Route Start Last Admin Trade Name Freq PRN Reason Stop Dose Admin Acetaminophen 650 mg 09/21/17 09:27 09/23/17 23:47 Tylenol - PO 650 mg Q6H PRN Administration FEVER Allopurinol 300 mg 09/21/17 10:00 09/25/17 09:45 Zyloprim - PO 300 mg DAILY JOHN Administration Docusate Sodium 100 mg 09/21/17 14:45 09/25/17 09:45 Colace - PO 100 mg BID JOHN Administration Sodium Chloride 1,000 mls @ 75 mls/hr 09/21/17 08:15 09/25/17 09:48 Normal Saline - IV Not Given ASDIR JOHN CEFTRIAXONE 1 G/50 ML PREMIX 50 mls @ 100 mls/hr 09/25/17 10:00 09/25/17 09: 45 Ceftriaxone 1 Gm-D5w Bag IVPB 100 mls/hr DAILY JOHN Administration Ondansetron HCl 8 mg 09/21/17 04:33 Zofran Injection IVPB Q12H PRN NAUSEA AND/OR VOMITING Pantoprazole Sodium 40 mg 09/21/17 10:00 09/25/17 09:45 Protonix - PO 40 mg DAILY JOHN Administration Tbo-Filgrastim 300 mcg 09/21/17 18:30 09/24/17 10:57 Granix - SQ 300 mcg DAILY JOHN Administration Trimethoprim/Sulfamethoxazole 1 each 09/22/17 10:00 09/24/17 09:16 Bactrim Ds - PO 1 each TuThSa@1000 JOHN Administration Valacyclovir HCl 500 mg 09/21/17 10:00 09/25/17 09:45 Valtrex - PO 500 mg DAILY JOHN Administration Microbiology 09/23/17 10:08 Blood - Peripheral Venous Blood Culture - Preliminary NO GROWTH OBTAINED AFTER 48 HOURS, INCUBATION TO CONTINUE FOR 3 DAYS. 09/23/17 09:43 Blood - Peripheral Venous Blood Culture - Preliminary NO GROWTH OBTAINED AFTER 48 HOURS, INCUBATION TO CONTINUE FOR 3 DAYS. 09/21/17 04:40 Blood - Peripheral Venous Blood Culture - Preliminary NO GROWTH OBTAINED AFTER 96 HOURS, INCUBATION TO CONTINUE FOR 1 DAYS. 09/21/17 04:30 Blood - Peripheral Venous Blood Culture - Final Escherichia Coli 09/21/17 03:20 Urine - Urine Clean Catch Urine Culture - Final 09/21/17 05:00 Nasopharyngeal Swab Influenza Types A,B Antigen (JUDITH) - Final 09/21/17 05:00 Nasopharyngeal Swab - Final Impression: "B" cell lymphoma S/P chemotherpay Urosepsis Anemia Plan:: Continue with outpatient ceftriaxone. No self cath Outpatient follow up Problem List - Problems (1) Large B-cell lymphoma Code(s): C85.10 - UNSPECIFIED B-CELL LYMPHOMA, UNSPECIFIED SITE (2) UTI (urinary tract infection) Code(s): N39.0 - URINARY TRACT INFECTION, SITE NOT SPECIFIED
== END 2017-09-25 12:38 | disposition home or self-care (01) | DRG 720 ==
LOC: JER 02:50 → JERBED 03:58 → J7W 04:20
PROVIDERS: ADMIT Internal Medicine Hematology & Oncology; ATTEND Internal Medicine Hematology & Oncology
DX: A41.9 Sepsis, unspecified organism (principal); C85.10 Unspecified B-cell lymphoma, unspecified site; N39.0 Urinary tract infection, site not specified; R50.9 Fever, unspecified; Z88.0 Allergy status to penicillin; D64.9 Anemia, unspecified
CPT/HCPCS: 36415; 71046-TC; 80053; 81003; 81015; 83615; 83735; 84550; 85025; 87040; 87086; 87186; 87804; 99283-25; J1447

== ENCOUNTER 2017-09-26 08:58 | Day surgery (SDC) | payer OTHER ==
[2017-09-26] MEDS ORDERED: CEFTRIAXONE 1 G/50 ML PREMIX 50 ML IVPB ONE (10:15)
[2017-09-26 10:37] VITALS: TEMP 97.7
[2017-09-26 13:32] VITALS: BP 98/76; PULSE 82
[2017-09-26] MEDS ORDERED: PORTA CATH FLUSH 10 ML IVPUSH ONE (13:32)
== END 2017-09-26 12:00 | disposition home or self-care (01) ==
LOC: JINFUSION 08:58 → J7W 09:02 → JINFUSION 12:00
PROVIDERS: ATTEND Internal Medicine Hematology & Oncology
DX: A41.9 Sepsis, unspecified organism (principal); N39.0 Urinary tract infection, site not specified; C85.10 Unspecified B-cell lymphoma, unspecified site
CPT/HCPCS: 96365

== ENCOUNTER 2017-09-27 14:14 | Day surgery (SDC) | payer OTHER ==
[2017-09-27] MEDS ORDERED: CEFTRIAXONE 1 G/50 ML PREMIX 50 ML IVPB SCH (14:45)
[2017-09-27 16:00] VITALS: TEMP 97.9
[2017-09-27] MEDS ORDERED: PORTA CATH FLUSH 10 ML IVPUSH ONE (16:02)
[2017-09-27 16:37] VITALS: BP 108/60; PULSE 83
== END 2017-09-27 16:40 | disposition home or self-care (01) ==
LOC: JINFUSION 14:14 → J7W 14:14 → JINFUSION 16:40
PROVIDERS: ATTEND Internal Medicine Hematology & Oncology
DX: A41.9 Sepsis, unspecified organism (principal); N39.0 Urinary tract infection, site not specified; C85.10 Unspecified B-cell lymphoma, unspecified site
CPT/HCPCS: 96365

== ENCOUNTER 2017-09-28 09:58 | Day surgery (SDC) | payer OTHER ==
[2017-09-28] MEDS ORDERED: CEFTRIAXONE 1 GM/50 ML IVPB ONE (10:30)
[2017-09-28] MEDS ORDERED: CEFTRIAXONE 1 G/50 ML PREMIX 50 ML IVPB ONE (10:55)
[2017-09-28] MEDS ORDERED: PORTA CATH FLUSH 10 ML IVPUSH ONE (15:37)
[2017-09-28 15:38] VITALS: TEMP 98.2
[2017-09-28 15:41] VITALS: BP 106/60; PULSE 70
== END 2017-09-28 12:20 | disposition home or self-care (01) ==
LOC: J7W 09:58 → JINFUSION 09:58
PROVIDERS: ATTEND Internal Medicine Hematology & Oncology
DX: A41.9 Sepsis, unspecified organism (principal); N39.0 Urinary tract infection, site not specified; C85.10 Unspecified B-cell lymphoma, unspecified site
CPT/HCPCS: 96365

== ENCOUNTER 2017-09-29 12:39 | Day surgery (SDC) | payer OTHER ==
[2017-09-29] MEDS ORDERED: CEFTRIAXONE 1 G/50 ML PREMIX 50 ML IVPB ONE (13:15)
[2017-09-29 14:24] VITALS: BP 107/71; PULSE 88; TEMP 98.9
== END 2017-09-29 13:45 | disposition home or self-care (01) ==
LOC: JINFUSION 12:39 → J7W 12:40 → JINFUSION 13:45
PROVIDERS: ATTEND Internal Medicine Hematology & Oncology
DX: A41.9 Sepsis, unspecified organism (principal); N39.0 Urinary tract infection, site not specified; C85.10 Unspecified B-cell lymphoma, unspecified site
CPT/HCPCS: 96365

== ENCOUNTER 2017-09-30 13:07 | Day surgery (SDC) | payer OTHER ==
[2017-09-30] MEDS ORDERED: CEFTRIAXONE 1 G/50 ML PREMIX 50 ML IVPB ONE (14:30)
[2017-09-30 17:29] VITALS: TEMP 97.7
[2017-09-30] MEDS ORDERED: PORTA CATH FLUSH 10 ML IVPUSH ONE (17:32)
[2017-09-30 17:33] VITALS: BP 118/60; PULSE 86
[2017-10-01] MEDS ORDERED: CEFTRIAXONE 1 G/50 ML PREMIX 50 ML IVPB SCH (10:00)
== END 2017-09-30 14:45 | disposition home or self-care (01) ==
LOC: JINFUSION 13:07 → J7W 13:08 → JINFUSION 14:45
PROVIDERS: ATTEND Internal Medicine Hematology & Oncology
DX: A41.9 Sepsis, unspecified organism (principal); N39.0 Urinary tract infection, site not specified; C85.10 Unspecified B-cell lymphoma, unspecified site
CPT/HCPCS: 96365

== ENCOUNTER 2017-10-01 12:49 | Day surgery (SDC) | payer OTHER ==
[2017-10-01] MEDS ORDERED: CEFTRIAXONE 1 G/50 ML PREMIX 50 ML IVPB ONE (13:30)
[2017-10-01 17:02] VITALS: BP 113/64; PULSE 92; TEMP 98
== END 2017-10-01 14:45 | disposition home or self-care (01) ==
LOC: J7W 12:49 → JINFUSION 12:49
PROVIDERS: ATTEND Internal Medicine Hematology & Oncology
DX: A41.9 Sepsis, unspecified organism (principal); N39.0 Urinary tract infection, site not specified; C85.10 Unspecified B-cell lymphoma, unspecified site
CPT/HCPCS: 96365

== ENCOUNTER 2017-10-02 13:27 | Day surgery (SDC) | payer OTHER ==
[2017-10-02] MEDS ORDERED: CEFTRIAXONE 1 G/50 ML PREMIX 50 ML IVPB ONE (13:45)
[2017-10-02] MEDS ORDERED: PORTA CATH FLUSH 10 ML IVPUSH ONE (14:17)
[2017-10-02 14:18] VITALS: TEMP 98
[2017-10-02 14:32] VITALS: BP 102/69; PULSE 88
== END 2017-10-02 14:33 | disposition home or self-care (01) ==
LOC: JINFUSION 13:27 → J7W 13:29 → JINFUSION 14:33
PROVIDERS: ATTEND Internal Medicine Hematology & Oncology
DX: A41.9 Sepsis, unspecified organism (principal); N39.0 Urinary tract infection, site not specified; C85.10 Unspecified B-cell lymphoma, unspecified site
CPT/HCPCS: 96365

== ENCOUNTER 2017-10-03 09:10 | Day surgery (SDC) | payer OTHER ==
[2017-10-03] MEDS ORDERED: CEFTRIAXONE 1 G/50 ML PREMIX 50 ML IVPB ONE (10:00)
[2017-10-03 12:14] VITALS: BP 108/73; PULSE 75; TEMP 98.3
== END 2017-10-03 12:05 | disposition home or self-care (01) ==
LOC: J7W 09:10 → JINFUSION 09:10
PROVIDERS: ATTEND Internal Medicine Hematology & Oncology
DX: A41.9 Sepsis, unspecified organism (principal); N39.0 Urinary tract infection, site not specified; C85.10 Unspecified B-cell lymphoma, unspecified site
CPT/HCPCS: 96365

== ENCOUNTER 2017-10-12 07:04 | Inpatient (IN) | payer OTHER ==
[2017-10-12] MEDS ORDERED: DEXTROSE 5%-WATER - 250 ML IVPB ONE (08:00)
[2017-10-12] MEDS ORDERED: FOSAPREPITANT DIMEGLUMINE 150 MG in SODIUM CHLORIDE 145 ML IVPB ONE (09:30)
[2017-10-12] MEDS ORDERED: ACETAMINOPHEN 325 MG TABLET (FP) PO ONE (09:30)
[2017-10-12] MEDS ORDERED: DIPHENHYDRAMINE IVPB ONE (09:30)
[2017-10-12] MEDS ORDERED: [UNRECOGNIZED DRUG - OTHER] IVPB ONE (09:30)
[2017-10-12] MEDS ORDERED: DEXAMETHASONE IVPB ONE (09:30)
[2017-10-12] MEDS ORDERED: ONDANSETRON IVPB ONE (09:30)
[2017-10-12] MEDS ORDERED: SODIUM CHLORIDE IVPB ONE (10:00)
[2017-10-12] MEDS ORDERED: RITUXIMAB IVPB ONE (10:00)
[2017-10-12 11:12] LABS: EOS % 1.8 % (0-4.5); HEMOGLOBIN 12.1 GM/dL (10.7-15.3); LYMPH % 6.5 % (8-40); MCH 29.4 pg (25.7-33.7); MCHC 32.6 g/dl (32.0-36.0); MEAN CELL VOLUME 90.2 fl (80-96); MONO % 12.1 % (3.8-10.2); NEUT % 78.6 % (42.8-82.8); PLATELET COUNT 345 K/MM3 (134-434); RDW 22.7 % (11.6-15.6); WHITE BLOOD COUNT 5.7 K/mm3 (4.0-10.0)
[2017-10-12 11:39] LABS: ANION GAP 4 (8-16); BLOOD UREA NITROGEN 21 mg/dL (7-18); CALCIUM 8.9 mg/dL (8.5-10.1); CHLORIDE 107 mmol/L (98-107); CO2 28 mmol/L (21-32); CREATININE 0.6 mg/dL (0.55-1.02); GLUCOSE,RANDOM 72 mg/dL (74-106); LDH 155 U/L (84-246); MAGNESIUM 1.9 mg/dL (1.8-2.4); PHOSPHOROUS 4.3 mg/dL (2.5-4.9); POTASSIUM 4.5 mmol/L (3.5-5.1); SODIUM 139 mmol/L (136-145); URIC ACID 2.5 mg/dL (2.6-7.2)
[2017-10-12] MEDS ORDERED: ETOPOSIDE IV ONE (13:00)
[2017-10-12] MEDS ORDERED: DOXORUBICIN HCL IV ONE (13:00)
[2017-10-12] MEDS ORDERED: [UNRECOGNIZED DRUG - OTHER] IV ONE (13:00)
[2017-10-12] MEDS ORDERED: VINCRISTINE SULFATE IV ONE (13:00)
[2017-10-12] MEDS ORDERED: predniSONE 20 MG TABLET (UD) ONE (13:11)
[2017-10-12] MEDS ORDERED: predniSONE 10 MG TABLET (UD) ONE (13:11)
[2017-10-12] MEDS ORDERED: ACETAMINOPHEN 325 MG TABLET (FP) ONE (13:51)
[2017-10-12] MEDS: NYSTATIN POWDER 100,000 UNITS/GM - 15 GM TOPICAL POWDER TP SCH ×3 (15:00→21:20)
[2017-10-12 17:00] VITALS: BMI 20.5
[2017-10-12] MEDS: SODIUM CHLORIDE 1,000 ML IV SCH (17:45)
[2017-10-12] MEDS: PANTOPRAZOLE 40 MG TABLET (FP) PO SCH (17:53)
[2017-10-12] MEDS: ALLOPURINOL 300 MG TABLET (FP) PO SCH (17:53)
[2017-10-12] MEDS: ALPRAZolam 0.25 MG TABLET PO PRN (21:18)
[2017-10-12] MEDS: DOCUSATE SODIUM 100 MG CAPSULE (FP) PO SCH (21:18)
[2017-10-12] MEDS: SULFAMETHOXAZOLE/TRIMETHOPRIM 800MG/160MG D.S. TABLET PO SCH (21:18)
[2017-10-13] MEDS: SODIUM CHLORIDE 1,000 ML IV SCH ×2 (05:00→18:11)
[2017-10-13] MEDS ORDERED: DOCUSATE SODIUM 100 MG CAPSULE (FP) PO SCH (06:00)
[2017-10-13] MEDS: DOCUSATE SODIUM 100 MG CAPSULE (FP) PO SCH ×3 (06:10→21:00)
[2017-10-13] MEDS: NYSTATIN POWDER 100,000 UNITS/GM - 15 GM TOPICAL POWDER TP SCH ×5 (06:11→23:55)
[2017-10-13] MEDS ORDERED: predniSONE 10 MG TABLET (UD) ONE (09:29)
[2017-10-13] MEDS ORDERED: predniSONE 20 MG TABLET (UD) ONE (09:30)
[2017-10-13] MEDS ORDERED: SULFAMETHOXAZOLE/TRIMETHOPRIM 800MG/160MG D.S. TABLET PO SCH (10:00)
[2017-10-13] MEDS ORDERED: valACYclovir HCL 500 MG TABLET (FP) PO SCH (10:00)
[2017-10-13] MEDS ORDERED: PANTOPRAZOLE 40 MG TABLET (FP) PO SCH (10:00)
[2017-10-13] MEDS ORDERED: ALLOPURINOL 300 MG TABLET (FP) PO SCH (10:00)
[2017-10-13] MEDS: ALLOPURINOL 300 MG TABLET (FP) PO SCH (10:16)
[2017-10-13] MEDS: SULFAMETHOXAZOLE/TRIMETHOPRIM 800MG/160MG D.S. TABLET PO SCH (10:17)
[2017-10-13] MEDS: PANTOPRAZOLE 40 MG TABLET (FP) PO SCH (10:17)
[2017-10-13] MEDS: valACYclovir HCL 500 MG TABLET (FP) PO SCH (10:17)
[2017-10-13 13:52] LABS: BASO % 0.1 % (0-2.0); HEMATOCRIT 35.4 % (32.4-45.2); HEMOGLOBIN 11.4 GM/dL (10.7-15.3); LYMPH % 1.5 % (8-40); MCH 29.1 pg (25.7-33.7); MCHC 32.2 g/dl (32.0-36.0); MEAN CELL VOLUME 90.5 fl (80-96); MONO % 1.8 % (3.8-10.2); NEUT % 96.6 % (42.8-82.8); PLATELET COUNT 317 K/MM3 (134-434); RBC 3.91 M/mm3 (3.60-5.2); RDW 22.7 % (11.6-15.6); WHITE BLOOD COUNT 11.6 K/mm3 (4.0-10.0)
[2017-10-13] MEDS ORDERED: VINCRISTINE SULFATE IV ONE (14:00)
[2017-10-13] MEDS ORDERED: DOXORUBICIN HCL IV ONE (14:00)
[2017-10-13] MEDS ORDERED: [UNRECOGNIZED DRUG - OTHER] IV ONE (14:00)
[2017-10-13] MEDS ORDERED: ETOPOSIDE IV ONE (14:00)
[2017-10-13] MEDS ORDERED: ONDANSETRON 4 MG/2 ML VIAL IVPUSH ONE (14:00)
[2017-10-13 14:11] LABS: ALBUMIN 3.6 g/dl (3.4-5.0); ALK PHOS 80 U/L (45-117); ANION GAP 9 (8-16); BILIRUBIN,TOTAL 0.7 mg/dL (0.2-1.0); BLOOD UREA NITROGEN 17 mg/dL (7-18); CALCIUM 8.5 mg/dL (8.5-10.1); CHLORIDE 107 mmol/L (98-107); CO2 23 mmol/L (21-32); CREATININE 0.7 mg/dL (0.55-1.02); GLUCOSE,RANDOM 110 mg/dL (74-106); POTASSIUM 4.4 mmol/L (3.5-5.1); SGOT/AST 17 U/L (15-37); SGPT/ALT 37 U/L (12-78); SODIUM 139 mmol/L (136-145); TOT PROT 6.7 g/dl (6.4-8.2)
--- NOTE | 2017-10-13 20:44 | HP ---
History and Physical History and Physical: PAtient seen and examined 10/12/17 at 6pm Admitted for C3 REPOCH for primary meduiastinal LBCL Denies any complaints No fever/chills/urinary symptoms PMH Solitary kidney chronic urinary retention with h/o self catheterizations recent UTI/G- bacteremia--E.coli AFVSS Cor: RSR, No murmurs, No gallops Lungs: Clear to P&A Abd: Soft, Normal bowel sounds, No organomegaly Ext:No significant edema Labs/Meds reviewed A/P 57 y/o patient with primary mediastinal diffuse large B cell lymphoma admitted for C3 REPOCH C2 complicated by UTI /E.coli.bacteremia for which she received 2 weeks of antibiotics IV No neuropathy symptoms Capping vincristine at 2mg Continue valtrex/bactrim start IV fluids Monitor weights and dose lasix as needed Monitor LDH/uric acid/CMP neulasta support Xanax prn
[2017-10-13] MEDS: ALPRAZolam 0.25 MG TABLET PO PRN (21:00)
--- NOTE | 2017-10-13 21:20 | PN ---
Progress Note (short form) - Note Progress Note: pt seen and examined. Denies much complains. O/E: AFVSS Cor: RSR, No murmurs, No gallops Lungs: Clear to P&A Abd: Soft, Normal bowel sounds, No organomegaly Ext:No significant edema Last Vital Signs Temp Pulse Resp BP Pulse Ox 97.9 F 74 18 111/89 97 10/13/17 18:31 10/13/17 18:31 10/13/17 20:23 10/13/17 18:31 10/13/17 20:23 CBC, BMP 10/13/17 13:24 10/13/17 13:24 Current Medications Generic Name Dose Route Start Last Admin Trade Name Freq PRN Reason Stop Dose Admin Allopurinol 300 mg 10/12/17 16:45 10/13/17 10:16 Zyloprim - PO 300 mg DAILY JOHN Administration Alprazolam 0.25 mg 10/12/17 16:58 10/13/17 21:00 Xanax - PO 0.25 mg BID PRN Administration ANXIETY Docusate Sodium 100 mg 10/12/17 22:00 10/13/17 21:00 Colace - PO 100 mg TID JOHN Administration Doxorubicin HCl 15 mg/ 1,011.75 mls @ 42.156 mls/hr 10/13/17 14:00 10/13/17 18:08 Etoposide 75 mg/ Vincristine IV 10/14/17 13:59 42.156 mls/hr Sulfate 0.5 mg/ Sodium ONCE ONE Administration Chloride Sodium Chloride 1,000 mls @ 75 mls/hr 10/12/17 17:00 10/13/17 18:11 Normal Saline - IV 75 mls/hr ASDIR JOHN Administration Doxorubicin HCl 15 mg/ 1,011.75 mls @ 42.156 mls/hr 10/14/17 16:30 Etoposide 75 mg/ Vincristine IV 10/15/17 16:29 Sulfate 0.5 mg/ Sodium ONCE ONE Chloride Nystatin 1 applic 10/12/17 14:00 10/13/17 19:36 Nystop Powder - TP Not Given 5XD JOHN Ondansetron HCl 8 mg 10/14/17 16:00 Zofran Injection IVPUSH 10/14/17 16:01 ONCE ONE Pantoprazole Sodium 40 mg 10/12/17 16:45 10/13/17 10:17 Protonix - PO 40 mg DAILY JOHN Administration Prednisone 80 mg/ Prednisone 90 mg 10/12/17 12:15 10/13/17 10:16 10 mg PO 90 mg DAILY JOHN Administration Senna 2 tab 10/13/17 00:53 Senna - PO HS PRN CONSTIPATION Trimethoprim/Sulfamethoxazole 1 each 10/14/17 10:00 Bactrim Ds - PO DAILY JOHN Valacyclovir HCl 500 mg 10/13/17 10:00 10/13/17 10:17 Valtrex - PO 500 mg DAILY JOHN Administration A/P 57 y/o patient with primary mediastinal diffuse large B cell lymphoma admitted for C3 REPOCH C2 complicated by UTI /E.coli.bacteremia Capping vincristine at 2mg C3D2 today Continue valtrex/bactrim Monitor weights and dose lasix as needed Monitor LDH/uric acid/CMP/cbc Xanax prn will rec bladder scan as she feels she has "incomplete" emptying, recommend if possible to avoid straight cath during the chemotherapy week atleast.
[2017-10-14] MEDS: NYSTATIN POWDER 100,000 UNITS/GM - 15 GM TOPICAL POWDER TP SCH ×5 (06:05→21:13)
[2017-10-14] MEDS: DOCUSATE SODIUM 100 MG CAPSULE (FP) PO SCH ×3 (06:05→21:12)
[2017-10-14] MEDS: SODIUM CHLORIDE 1,000 ML IV SCH ×3 (06:05→21:15)
[2017-10-14] MEDS: SENNOSIDES 8.6MG TABLET (FP) PO PRN ×2 (06:07→21:16)
[2017-10-14 07:50] LABS: BASO % 0.2 % (0-2.0); HEMATOCRIT 32.4 % (32.4-45.2); HEMOGLOBIN 10.5 GM/dL (10.7-15.3); LYMPH % 4.1 % (8-40); MCH 29.4 pg (25.7-33.7); MCHC 32.6 g/dl (32.0-36.0); MEAN CELL VOLUME 90.4 fl (80-96); MEAN PLT VOLUME 8.1 fl (7.5-11.1); MONO % 9.4 % (3.8-10.2); NEUT % 86.3 % (42.8-82.8); PLATELET COUNT 246 K/MM3 (134-434); RBC 3.58 M/mm3 (3.60-5.2); RDW 23.1 % (11.6-15.6); WHITE BLOOD COUNT 7.3 K/mm3 (4.0-10.0)
[2017-10-14 08:12] LABS: CHLORIDE 111 mmol/L (98-107); POTASSIUM 3.7 mmol/L (3.5-5.1); SODIUM 143 mmol/L (136-145)
[2017-10-14] MEDS ORDERED: predniSONE 10 MG TABLET (UD) ONE (09:00)
[2017-10-14] MEDS ORDERED: predniSONE 20 MG TABLET (UD) ONE (09:00)
[2017-10-14] MEDS: ALLOPURINOL 300 MG TABLET (FP) PO SCH (09:07)
[2017-10-14] MEDS: valACYclovir HCL 500 MG TABLET (FP) PO SCH (09:07)
[2017-10-14] MEDS: PANTOPRAZOLE 40 MG TABLET (FP) PO SCH (09:07)
[2017-10-14] MEDS: SULFAMETHOXAZOLE/TRIMETHOPRIM 800MG/160MG D.S. TABLET PO SCH (09:07)
[2017-10-14 09:15] LABS: ALK PHOS 64 U/L (45-117); ANION GAP 7 (8-16); BILIRUBIN,TOTAL 0.3 mg/dL (0.2-1.0); BLOOD UREA NITROGEN 15 mg/dL (7-18); CALCIUM 9.1 mg/dL (8.5-10.1); CO2 25 mmol/L (21-32); CREATININE 0.5 mg/dL (0.55-1.02); GLUCOSE,RANDOM 80 mg/dL (74-106); LDH 123 U/L (84-246); SGOT/AST 17 U/L (15-37); SGPT/ALT 31 U/L (12-78); TOT PROT 5.8 g/dl (6.4-8.2); URIC ACID 2.3 mg/dL (2.6-7.2)
--- NOTE | 2017-10-14 11:33 | PN ---
Progress Note (short form) - Note Progress Note: pt seen and examined. tolerating chemo well CBC/Chem noted. O/E: AFVSS Cor: RSR, No murmurs, No gallops Lungs: Clear to P&A Abd: Soft, Normal bowel sounds, No organomegaly Ext:No significant edema Last Vital Signs Temp Pulse Resp BP Pulse Ox 97.7 F 83 20 111/85 100 10/14/17 10:00 10/14/17 10:00 10/14/17 10:00 10/14/17 10:00 10/14/17 09:00 CBC, BMP 10/14/17 06:00 10/14/17 06:00 Current Medications Generic Name Dose Route Start Last Admin Trade Name Freq PRN Reason Stop Dose Admin Allopurinol 300 mg 10/12/17 16:45 10/14/17 09:07 Zyloprim - PO 300 mg DAILY JOHN Administration Alprazolam 0.25 mg 10/12/17 16:58 10/13/17 21:00 Xanax - PO 0.25 mg BID PRN Administration ANXIETY Docusate Sodium 100 mg 10/12/17 22:00 10/14/17 06:05 Colace - PO 100 mg TID JOHN Administration Doxorubicin HCl 15 mg/ 1,011.75 mls @ 42.156 mls/hr 10/13/17 14:00 10/13/17 18:08 Etoposide 75 mg/ Vincristine IV 10/14/17 13:59 42.156 mls/hr Sulfate 0.5 mg/ Sodium ONCE ONE Administration Chloride Sodium Chloride 1,000 mls @ 75 mls/hr 10/12/17 17:00 10/14/17 06:05 Normal Saline - IV 75 mls/hr ASDIR JOHN Administration Doxorubicin HCl 15 mg/ 1,011.75 mls @ 42.156 mls/hr 10/14/17 16:30 Etoposide 75 mg/ Vincristine IV 10/15/17 16:29 Sulfate 0.5 mg/ Sodium ONCE ONE Chloride Nystatin 1 applic 10/12/17 14:00 10/14/17 09:07 Nystop Powder - TP 1 applic 5XD JOHN Administration Ondansetron HCl 8 mg 10/14/17 16:00 Zofran Injection IVPUSH 10/14/17 16:01 ONCE ONE Pantoprazole Sodium 40 mg 10/12/17 16:45 10/14/17 09:07 Protonix - PO 40 mg DAILY JOHN Administration Prednisone 80 mg/ Prednisone 90 mg 10/12/17 12:15 10/14/17 09:06 10 mg PO 90 mg DAILY JOHN Administration Senna 2 tab 10/13/17 00:53 10/14/17 06:07 Senna - PO 2 tab HS PRN Administration CONSTIPATION Trimethoprim/Sulfamethoxazole 1 each 10/14/17 10:00 10/14/17 09:07 Bactrim Ds - PO 1 each DAILY JOHN Administration Valacyclovir HCl 500 mg 10/13/17 10:00 10/14/17 09:07 Valtrex - PO 500 mg DAILY JOHN Administration A/P 57 y/o patient with primary mediastinal diffuse large B cell lymphoma admitted for C3 REPOCH C2 complicated by UTI /E.coli.bacteremia Capping vincristine at 2mg C3D3 today Continue valtrex/bactrim Monitor weights and dose lasix as needed Monitor LDH/uric acid/CMP/cbc Xanax prn lasix as needed
[2017-10-14] MEDS ORDERED: ONDANSETRON 4 MG/2 ML VIAL IVPUSH ONE (16:00)
[2017-10-14] MEDS ORDERED: VINCRISTINE SULFATE IV ONE (16:30)
[2017-10-14] MEDS ORDERED: DOXORUBICIN HCL IV ONE (16:30)
[2017-10-14] MEDS ORDERED: ETOPOSIDE IV ONE (16:30)
[2017-10-14] MEDS ORDERED: [UNRECOGNIZED DRUG - OTHER] IV ONE (16:30)
[2017-10-14] MEDS: ALPRAZolam 0.25 MG TABLET PO PRN (21:12)
[2017-10-15] MEDS: DOCUSATE SODIUM 100 MG CAPSULE (FP) PO SCH ×3 (06:15→21:41)
[2017-10-15] MEDS: NYSTATIN POWDER 100,000 UNITS/GM - 15 GM TOPICAL POWDER TP SCH ×5 (06:16→21:40)
[2017-10-15] MEDS ORDERED: predniSONE 10 MG TABLET (UD) ONE (09:01)
[2017-10-15] MEDS ORDERED: predniSONE 20 MG TABLET (UD) ONE (09:02)
[2017-10-15] MEDS: SULFAMETHOXAZOLE/TRIMETHOPRIM 800MG/160MG D.S. TABLET PO SCH (09:07)
[2017-10-15] MEDS: valACYclovir HCL 500 MG TABLET (FP) PO SCH (09:07)
[2017-10-15] MEDS: ALLOPURINOL 300 MG TABLET (FP) PO SCH (09:07)
[2017-10-15] MEDS: PANTOPRAZOLE 40 MG TABLET (FP) PO SCH (09:07)
[2017-10-15] MEDS: SODIUM CHLORIDE 1,000 ML IV SCH ×3 (09:29→21:44)
--- NOTE | 2017-10-15 10:58 | PN ---
Progress Note (short form) - Note Progress Note: Patient seen and examined Tolerating chemotherapy to date Last Vital Signs Temp Pulse Resp BP Pulse Ox 98 F 60 18 119/79 98 10/15/17 06:00 10/15/17 06:00 10/15/17 06:00 10/15/17 06:00 10/14/17 21:00 HEENT: JACQUES, EOM Intact Oropharynx: No thrush, No mucositis Cor: RSR, No murmurs, No gallops Lungs: Clear to P&A Abd: Soft, Normal bowel sounds, No organomegaly Ext: edema LE Skin: No rashes, Integument intact CBC, BMP 10/14/17 06:00 10/14/17 06:00 Current Medications Generic Name Dose Route Start Last Admin Trade Name Freq PRN Reason Stop Dose Admin Allopurinol 300 mg 10/12/17 16:45 10/15/17 09:07 Zyloprim - PO 300 mg DAILY JOHN Administration Alprazolam 0.25 mg 10/12/17 16:58 10/14/17 21:12 Xanax - PO 0.25 mg BID PRN Administration ANXIETY Docusate Sodium 100 mg 10/12/17 22:00 10/15/17 06:15 Colace - PO 100 mg TID JOHN Administration Sodium Chloride 1,000 mls @ 75 mls/hr 10/12/17 17:00 10/15/17 09:29 Normal Saline - IV 75 mls/hr ASDIR JOHN Administration Doxorubicin HCl 15 mg/ 1,011.75 mls @ 42.156 mls/hr 10/14/17 16:30 10/14/17 17:53 Etoposide 75 mg/ Vincristine IV 10/15/17 16:29 42.156 mls/hr Sulfate 0.5 mg/ Sodium ONCE ONE Administration Chloride Doxorubicin HCl 15 mg/ 1,011.75 mls @ 42.156 mls/hr 10/15/17 16:30 Etoposide 75 mg/ Vincristine IV 10/16/17 16:29 Sulfate 0.5 mg/ Sodium ONCE ONE Chloride Nystatin 1 applic 10/12/17 14:00 10/15/17 06:16 Nystop Powder - TP 1 applic 5XD JOHN Administration Ondansetron HCl 8 mg 10/15/17 16:00 Zofran Injection IVPUSH 02/15/18 16:01 ONCE ONE Pantoprazole Sodium 40 mg 10/12/17 16:45 10/15/17 09:07 Protonix - PO 40 mg DAILY JOHN Administration Prednisone 80 mg/ Prednisone 90 mg 10/12/17 12:15 10/15/17 09:07 10 mg PO 90 mg DAILY JOHN Administration Senna 2 tab 10/13/17 00:53 10/14/17 21:16 Senna - PO 2 tab HS PRN Administration CONSTIPATION Trimethoprim/Sulfamethoxazole 1 each 10/14/17 10:00 10/15/17 09:07 Bactrim Ds - PO 1 each DAILY JOHN Administration Valacyclovir HCl 500 mg 10/13/17 10:00 10/15/17 09:07 Valtrex - PO 500 mg DAILY JOHN Administration Impression :: Mediastinal "B" cell lymphoma Chemotherapy - Cycle 3, day 4 6 lb weight gain Plan: Continue treatment Lasix 20 mg with Kdur
[2017-10-15] MEDS ORDERED: POTASSIUM CHLORIDE TABS 20 MEQ TABLET.ER (FP) PO ONE (10:59)
[2017-10-15] MEDS ORDERED: FUROSEMIDE 20 MG TABLET (FP) PO ONE (10:59)
[2017-10-15] MEDS ORDERED: ONDANSETRON 4 MG/2 ML VIAL IVPUSH ONE ×2 (16:00→18:30)
[2017-10-15] MEDS ORDERED: [UNRECOGNIZED DRUG - OTHER] IV ONE (16:30)
[2017-10-15] MEDS ORDERED: VINCRISTINE SULFATE IV ONE (16:30)
[2017-10-15] MEDS ORDERED: DOXORUBICIN HCL IV ONE (16:30)
[2017-10-15] MEDS ORDERED: ETOPOSIDE IV ONE (16:30)
[2017-10-15] MEDS: ALPRAZolam 0.25 MG TABLET PO PRN (21:41)
[2017-10-16] MEDS: DOCUSATE SODIUM 100 MG CAPSULE (FP) PO SCH ×3 (05:26→21:46)
[2017-10-16] MEDS: NYSTATIN POWDER 100,000 UNITS/GM - 15 GM TOPICAL POWDER TP SCH ×4 (05:27→21:46)
[2017-10-16] MEDS ORDERED: ACETAMINOPHEN 325 MG TABLET (FP) PO ONE (05:30)
[2017-10-16 07:59] LABS: CHLORIDE 107 mmol/L (98-107); POTASSIUM 3.4 mmol/L (3.5-5.1); SODIUM 143 mmol/L (136-145)
[2017-10-16 08:05] LABS: BASO % 0.3 % (0-2.0); EOS % 0.4 % (0-4.5); HEMATOCRIT 31.4 % (32.4-45.2); HEMOGLOBIN 10.2 GM/dL (10.7-15.3); MCH 29.9 pg (25.7-33.7); MCHC 32.6 g/dl (32.0-36.0); MEAN CELL VOLUME 91.8 fl (80-96); MEAN PLT VOLUME 7.9 fl (7.5-11.1); MONO % 5.9 % (3.8-10.2); NEUT % 82.4 % (42.8-82.8); PLATELET COUNT 211 K/MM3 (134-434); RBC 3.42 M/mm3 (3.60-5.2); RDW 21.9 % (11.6-15.6); WHITE BLOOD COUNT 3.3 K/mm3 (4.0-10.0)
[2017-10-16 08:10] LABS: ALBUMIN 2.9 g/dl (3.4-5.0); ALK PHOS 55 U/L (45-117); ANION GAP 10 (8-16); BILIRUBIN,TOTAL 0.9 mg/dL (0.2-1.0); BLOOD UREA NITROGEN 12 mg/dL (7-18); CALCIUM 8.3 mg/dL (8.5-10.1); CO2 26 mmol/L (21-32); CREATININE 0.6 mg/dL (0.55-1.02); GLUCOSE,RANDOM 96 mg/dL (74-106); LDH 117 U/L (84-246); MAGNESIUM 1.8 mg/dL (1.8-2.4); SGOT/AST 15 U/L (15-37); SGPT/ALT 26 U/L (12-78); TOT PROT 5.3 g/dl (6.4-8.2); URIC ACID 2.6 mg/dL (2.6-7.2)
--- NOTE | 2017-10-16 09:02 | PN ---
Progress Note (short form) - Note Progress Note: Patient seen and examined Complains of lack of sleep secondary to "beeping" of pump . Spoke with pharmacy - they will look into this Tolerating chemotherapy Self catherization 1 x per day with some residual No headache, dizziness, dysphagia, chest pain, SOB, dyspnea, dysuria, diarrhea, constipation, cough, sputum, back , bone pains Last Vital Signs Temp Pulse Resp BP Pulse Ox 98 F 68 18 118/80 98 10/16/17 06:34 10/16/17 06:34 10/16/17 06:34 10/16/17 06:34 10/15/17 21:00 HEENT: JACQUES, EOM Intact Oropharynx: No thrush, No mucositis Neck: Supple Nodes: Without adenopathy Cor: RSR, No murmurs, No gallops Lungs: Clear to P&A Abd: Soft, Normal bowel sounds, No organomegaly Ext:LE edema Skin: No rashes, Integument intact CBC, BMP 10/16/17 06:12 10/16/17 06:12 Current Medications Generic Name Dose Route Start Last Admin Trade Name Freq PRN Reason Stop Dose Admin Allopurinol 300 mg 10/12/17 16:45 10/15/17 09:07 Zyloprim - PO 300 mg DAILY JOHN Administration Alprazolam 0.25 mg 10/12/17 16:58 10/15/17 21:41 Xanax - PO 0.25 mg BID PRN Administration ANXIETY Docusate Sodium 100 mg 10/12/17 22:00 10/16/17 05:26 Colace - PO 100 mg TID JOHN Administration Sodium Chloride 1,000 mls @ 75 mls/hr 10/12/17 17:00 10/15/17 21:44 Normal Saline - IV 75 mls/hr ASDIR JOHN Administration Doxorubicin HCl 15 mg/ 1,011.75 mls @ 42.156 mls/hr 10/15/17 16:30 10/15/17 19:20 Etoposide 75 mg/ Vincristine IV 10/16/17 16:29 42.156 mls/hr Sulfate 0.5 mg/ Sodium ONCE ONE Administration Chloride Ondansetron HCl 12 mg/ Sodium 106 mls @ 424 mls/hr 10/16/17 16:00 Chloride IVPB 10/16/17 16:14 ONCE ONE Cyclophosphamide 1,120 mg/ 306 mls @ 306 mls/hr 10/16/17 16:30 Sodium Chloride IVPB 10/16/17 17:29 ONCE ONE Nystatin 1 applic 10/12/17 14:00 10/16/17 05:27 Nystop Powder - TP 1 applic 5XD JOHN Administration Pantoprazole Sodium 40 mg 10/12/17 16:45 10/15/17 09:07 Protonix - PO 40 mg DAILY JOHN Administration Prednisone 80 mg/ Prednisone 90 mg 10/12/17 12:15 10/15/17 09:07 10 mg PO 90 mg DAILY JOHN Administration Senna 2 tab 10/13/17 00:53 10/14/17 21:16 Senna - PO 2 tab HS PRN Administration CONSTIPATION Trimethoprim/Sulfamethoxazole 1 each 10/14/17 10:00 10/15/17 09:07 Bactrim Ds - PO 1 each DAILY JOHN Administration Valacyclovir HCl 500 mg 10/13/17 10:00 10/15/17 09:07 Valtrex - PO 500 mg DAILY JOHN Administration Impression: Mediastinal " B" cell LYmphoma Chemotherapy Leukopenia Hypokalemia Volume overload improved with diuretic Plan: Continue with chemotherapy Replete K+ Lasix 20 mg Neulasta post chemotherapy
[2017-10-16] MEDS ORDERED: FUROSEMIDE 20 MG TABLET (FP) PO ONE ×2 (09:17→15:30)
[2017-10-16] MEDS ORDERED: predniSONE 10 MG TABLET (UD) ONE (11:58)
[2017-10-16] MEDS ORDERED: predniSONE 20 MG TABLET (UD) ONE (11:58)
[2017-10-16] MEDS: ALLOPURINOL 300 MG TABLET (FP) PO SCH (12:05)
[2017-10-16] MEDS: valACYclovir HCL 500 MG TABLET (FP) PO SCH (12:05)
[2017-10-16] MEDS: SULFAMETHOXAZOLE/TRIMETHOPRIM 800MG/160MG D.S. TABLET PO SCH (12:05)
[2017-10-16] MEDS: PANTOPRAZOLE 40 MG TABLET (FP) PO SCH (12:06)
[2017-10-16] MEDS ORDERED: SODIUM CHLORIDE IVPB ONE (16:00)
[2017-10-16] MEDS ORDERED: ONDANSETRON IVPB ONE (16:00)
[2017-10-16] MEDS: CYCLOPHOSPHAMIDE IVPB ONE (17:26)
[2017-10-16] MEDS: SODIUM CHLORIDE IVPB ONE (17:26)
[2017-10-16] MEDS: POTASSIUM CHLORIDE TABS 20 MEQ TABLET.ER (FP) PO SCH ×2 (17:26→21:46)
[2017-10-16] MEDS ORDERED: ONDANSETRON 4 MG/2 ML VIAL ONE (17:56)
[2017-10-16] MEDS: ALPRAZolam 0.25 MG TABLET PO PRN (21:46)
[2017-10-16] MEDS: SODIUM CHLORIDE 1,000 ML IV SCH (21:47)
[2017-10-17] MEDS: SODIUM CHLORIDE 1,000 ML IV SCH (01:21)
[2017-10-17] MEDS: POTASSIUM CHLORIDE TABS 20 MEQ TABLET.ER (FP) PO SCH (06:24)
[2017-10-17] MEDS: DOCUSATE SODIUM 100 MG CAPSULE (FP) PO SCH ×2 (06:24→13:44)
[2017-10-17] MEDS: NYSTATIN POWDER 100,000 UNITS/GM - 15 GM TOPICAL POWDER TP SCH ×3 (06:25→13:44)
[2017-10-17 08:09] LABS: BASO % 0.3 % (0-2.0); EOS % 0.8 % (0-4.5); HEMATOCRIT 32.3 % (32.4-45.2); HEMOGLOBIN 10.7 GM/dL (10.7-15.3); LYMPH % 10.2 % (8-40); MCH 30.2 pg (25.7-33.7); MCHC 33.1 g/dl (32.0-36.0); MEAN CELL VOLUME 91.4 fl (80-96); MONO % 3.5 % (3.8-10.2); NEUT % 85.2 % (42.8-82.8); PLATELET COUNT 206 K/MM3 (134-434); RBC 3.53 M/mm3 (3.60-5.2); RDW 21.4 % (11.6-15.6); WHITE BLOOD COUNT 3.5 K/mm3 (4.0-10.0)
[2017-10-17 08:22] LABS: ALBUMIN 3.1 g/dl (3.4-5.0); ANION GAP 7 (8-16); BLOOD UREA NITROGEN 11 mg/dL (7-18); CALCIUM 9.1 mg/dL (8.5-10.1); CHLORIDE 105 mmol/L (98-107); CO2 30 mmol/L (21-32); GLUCOSE,RANDOM 63 mg/dL (74-106); MAGNESIUM 2.2 mg/dL (1.8-2.4); POTASSIUM 3.7 mmol/L (3.5-5.1); SODIUM 142 mmol/L (136-145)
[2017-10-17 08:25] LABS: ALK PHOS 55 U/L (45-117); BILIRUBIN,TOTAL 0.8 mg/dL (0.2-1.0); CREATININE 0.5 mg/dL (0.55-1.02); SGOT/AST 19 U/L (15-37); SGPT/ALT 31 U/L (12-78); TOT PROT 5.9 g/dl (6.4-8.2); URIC ACID 2.6 mg/dL (2.6-7.2)
[2017-10-17] MEDS ORDERED: predniSONE 10 MG TABLET (UD) ONE (09:35)
[2017-10-17] MEDS ORDERED: predniSONE 20 MG TABLET (UD) ONE (09:36)
[2017-10-17] MEDS: SULFAMETHOXAZOLE/TRIMETHOPRIM 800MG/160MG D.S. TABLET PO SCH (10:05)
[2017-10-17] MEDS: PANTOPRAZOLE 40 MG TABLET (FP) PO SCH (10:06)
[2017-10-17] MEDS: valACYclovir HCL 500 MG TABLET (FP) PO SCH (10:07)
[2017-10-17] MEDS: ALLOPURINOL 300 MG TABLET (FP) PO SCH (10:11)
[2017-10-17] MEDS ORDERED: SODIUM CHLORIDE IVPB ONE ×2 (11:15→11:45)
[2017-10-17] MEDS ORDERED: ONDANSETRON IVPB ONE (11:15)
[2017-10-17] MEDS ORDERED: CYCLOPHOSPHAMIDE IVPB ONE (11:45)
--- NOTE | 2017-10-17 11:48 | PN ---
Progress Note (short form) - Note Progress Note: Oncology Progress Note S: Patient feels well with no complaints today. She would like to finish her chemo so she can go home. Last Vital Signs Temp Pulse Resp BP Pulse Ox 98.1 F 61 20 130/78 98 10/17/17 06:00 10/17/17 06:00 10/17/17 06:00 10/17/17 06:00 10/16/17 21:00 PE : AOX3, pleasant CTA(BL), S1S2 wnl Soft abdomen No c/c/e Nonfocal neuro exam Port site appears wnl CBC, BMP 10/17/17 06:30 10/17/17 06:30 Current Medications Generic Name Dose Route Start Last Admin Trade Name Freq PRN Reason Stop Dose Admin Allopurinol 300 mg 10/12/17 16:45 10/17/17 10:11 Zyloprim - PO 300 mg DAILY JOHN Administration Alprazolam 0.25 mg 10/12/17 16:58 10/16/17 21:46 Xanax - PO 0.25 mg BID PRN Administration ANXIETY Docusate Sodium 100 mg 10/12/17 22:00 10/17/17 06:24 Colace - PO 100 mg TID JOHN Administration Sodium Chloride 1,000 mls @ 75 mls/hr 10/12/17 17:00 10/17/17 01:21 Normal Saline - IV 75 mls/hr ASDIR JOHN Administration Cyclophosphamide 1,120 mg/ 306 mls @ 306 mls/hr 10/17/17 11:45 Sodium Chloride IVPB 10/17/17 12:44 ONCE ONE Nystatin 1 applic 10/12/17 14:00 10/17/17 10:10 Nystop Powder - TP 1 applic 5XD JOHN Administration Pantoprazole Sodium 40 mg 10/12/17 16:45 10/17/17 10:06 Protonix - PO 40 mg DAILY JOHN Administration Prednisone 80 mg/ Prednisone 90 mg 10/12/17 12:15 10/17/17 10:06 10 mg PO 90 mg DAILY JOHN Administration Senna 2 tab 10/13/17 00:53 10/14/17 21:16 Senna - PO 2 tab HS PRN Administration CONSTIPATION Trimethoprim/Sulfamethoxazole 1 each 10/14/17 10:00 10/17/17 10:05 Bactrim Ds - PO 1 each DAILY JOHN Administration Valacyclovir HCl 500 mg 10/13/17 10:00 10/17/17 10:07 Valtrex - PO 500 mg DAILY JOHN Administration A/P : 57 y/o patient with primary mediastinal diffuse large B cell lymphoma admitted for C3 REPOCH C2 complicated by UTI /E.coli.bacteremia Capped vincristine at 2mg C3D5 today, Can be discharged after chemotherapy today Continue valtrex/bactrim as outpatient No electrolytes need to be repleted today Return to clinic on Thursday 10/19 for neulasta and 10/20 for follow-up with
[2017-10-17] MEDS: CYCLOPHOSPHAMIDE IVPB ONE (11:50)
[2017-10-17] MEDS: SODIUM CHLORIDE IVPB ONE (11:50)
[2017-10-17 14:38] VITALS: BP 135/88; PULSE 82; TEMP 98.2
== END 2017-10-17 15:21 | disposition home or self-care (01) | DRG 693 ==
LOC: JONCCHEMO 07:04 → J7W 10:08 → JONCCHEMO 10:09 → J7W 20:08
PROVIDERS: ADMIT Internal Medicine Hematology & Oncology; ATTEND Internal Medicine Hematology & Oncology
DX: Z51.11 Encounter for antineoplastic chemotherapy (principal); C85.20 Mediastinal (thymic) large B-cell lymphoma, unspecified site; D72.818 Other decreased white blood cell count; E87.6 Hypokalemia; E87.70 Fluid overload, unspecified; R33.8 Other retention of urine; Q60.0 Renal agenesis, unilateral
CPT/HCPCS: 36415; 80048; 80053; 82232; 83615; 83735; 84100; 84550; 85025; 85651; 96361; 96367; 96375; 96413; 96415; 96417; J1100; J1453; J9070; J9181; J9310; J9370

== ENCOUNTER 2017-10-20 08:53 | Day surgery (SDC) | payer OTHER ==
[2017-10-20] MEDS ORDERED: PEGFILGRASTIM 6 MG/0.6 ML DISP.SYRIN SQ ONE (11:00)
[2017-10-20 16:01] VITALS: BP 109/81; PULSE 98; TEMP 97.8
== END 2017-10-20 13:15 | disposition home or self-care (01) ==
LOC: JONCCHEMO 08:53 → J7W 12:49 → JONCCHEMO 13:15
PROVIDERS: ATTEND Internal Medicine Hematology & Oncology
PROC: 3E013GC Introduction of Other Therapeutic Substance into Subcutaneous Tissue, Percutaneous Approach (ICD-10-PCS; principal; 2017-10-20)
DX: C85.20 Mediastinal (thymic) large B-cell lymphoma, unspecified site (principal); Z76.89 Persons encountering health services in other specified circumstances
CPT/HCPCS: 96372; J2505

== ENCOUNTER 2017-11-02 07:15 | Inpatient (IN) | payer OTHER ==
[2017-11-02] MEDS ORDERED: DEXTROSE 5%-NORMAL SALINE 500 ML IV ONE (08:00)
[2017-11-02] MEDS ORDERED: ACETAMINOPHEN 325 MG TABLET (FP) PO ONE (10:00)
[2017-11-02] MEDS ORDERED: [UNRECOGNIZED DRUG - OTHER] IVPB ONE (10:00)
[2017-11-02] MEDS ORDERED: FOSAPREPITANT DIMEGLUMINE 150 MG in SODIUM CHLORIDE 150 ML IVPB ONE (10:00)
[2017-11-02] MEDS ORDERED: ONDANSETRON IVPB ONE (10:00)
[2017-11-02] MEDS ORDERED: DIPHENHYDRAMINE IVPB ONE (10:00)
[2017-11-02] MEDS ORDERED: DEXAMETHASONE IVPB ONE (10:00)
[2017-11-02] MEDS ORDERED: RITUXIMAB IVPB ONE (10:30)
[2017-11-02] MEDS ORDERED: SODIUM CHLORIDE IVPB ONE (10:30)
[2017-11-02 12:58] LABS: BASO % 0.4 % (0-2.0); EOS % 0.3 % (0-4.5); HEMATOCRIT 35.8 % (32.4-45.2); HEMOGLOBIN 12.2 GM/dL (10.7-15.3); LYMPH % 4.1 % (8-40); MCH 31.5 pg (25.7-33.7); MCHC 34.1 g/dl (32.0-36.0); MEAN CELL VOLUME 92.5 fl (80-96); MEAN PLT VOLUME 8.2 fl (7.5-11.1); MONO % 5.8 % (3.8-10.2); NEUT % 89.4 % (42.8-82.8); PLATELET COUNT 333 K/MM3 (134-434); RBC 3.87 M/mm3 (3.60-5.2); RDW 19.6 % (11.6-15.6); WHITE BLOOD COUNT 10.7 K/mm3 (4.0-10.0)
[2017-11-02] MEDS ORDERED: ACETAMINOPHEN 325 MG TABLET (FP) PO PRN (13:14)
[2017-11-02 13:21] LABS: ALBUMIN 3.8 g/dl (3.4-5.0); ANION GAP 13 (8-16); BLOOD UREA NITROGEN 20 mg/dL (7-18); CALCIUM 9.5 mg/dL (8.5-10.1); CHLORIDE 104 mmol/L (98-107); CO2 24 mmol/L (21-32); CREATININE 0.6 mg/dL (0.55-1.02); GLUCOSE,RANDOM 72 mg/dL (74-106); MAGNESIUM 2.1 mg/dL (1.8-2.4); SGOT/AST 26 U/L (15-37); SGPT/ALT 86 U/L (12-78); SODIUM 141 mmol/L (136-145); URIC ACID 3.3 mg/dL (2.6-7.2)
[2017-11-02 13:24] LABS: ALK PHOS 140 U/L (45-117); BILIRUBIN,DIRECT < 0.2 mg/dL (0.0-0.2); BILIRUBIN,TOTAL 0.2 mg/dL (0.2-1.0); LDH 183 U/L (84-246); PHOSPHOROUS 4.3 mg/dL (2.5-4.9)
[2017-11-02 13:50] LABS: ERYTHROCYTE SEDIMENTATION RATE 14 mm/hr (0-30)
[2017-11-02] MEDS ORDERED: ETOPOSIDE IV ONE (14:00)
[2017-11-02] MEDS ORDERED: DOXORUBICIN HCL IV ONE (14:00)
[2017-11-02] MEDS ORDERED: VINCRISTINE SULFATE IV ONE (14:00)
[2017-11-02] MEDS ORDERED: [UNRECOGNIZED DRUG - OTHER] IV ONE (14:00)
[2017-11-02] MEDS ORDERED: PORTA CATH FLUSH 10 ML IVPUSH ONE ×2 (17:56→19:30)
[2017-11-02] MEDS: ALLOPURINOL 300 MG TABLET (FP) PO SCH (17:57)
[2017-11-02] MEDS: DOCUSATE SODIUM 100 MG CAPSULE (FP) PO SCH ×2 (17:57→21:22)
[2017-11-02] MEDS: valACYclovir HCL 500 MG TABLET (FP) PO SCH (17:58)
--- NOTE | 2017-11-02 18:22 | HP ---
History and Physical History and Physical: PAtient seen and examined Denies any complaints No fever/chills/SOB/cough/abdominalpain/nausea/vomiting/diarrhea/urinary symptoms PMH Primary Mediastinal Lymphoma Last Vital Signs Temp Pulse Resp BP Pulse Ox 97.3 F L 85 18 113/63 11/02/17 19:05 11/02/17 19:05 11/02/17 19:05 11/02/17 19:05 Cor: RSR, No murmurs, No gallops Lungs: Clear to P&A Abd: Soft, Normal bowel sounds, No organomegaly Ext:No significant edema Abnormal Lab Results 11/02/17 11/02/17 12:30 12:30 WBC 10.7 H D RDW 19.6 H Neutrophils % 89.4 H Lymphocytes % 4.1 L D BUN 20 H Random Glucose 72 L ALT 86 H Alkaline Phosphatase 140 H Active Medications Acetaminophen (Tylenol -) 650 mg PO Q4H PRN PRN Reason: FEVER Allopurinol (Zyloprim -) 300 mg PO DAILY [facility] Last Admin: 11/02/17 17:57 Dose: 300 mg Alprazolam (Xanax -) 0.25 mg PO HS PRN PRN Reason: ANXIETY Docusate Sodium (Colace -) 100 mg PO TID [facility] Last Admin: 11/02/17 17:57 Dose: Not Given Doxorubicin HCl 15 mg/Etoposide 75 mg/ Vincristine Sulfate 0.5 mg/ Sodium Chloride 1,011.75 mls @ 42.156 mls/hr IV ONCE ONE Stop: 11/03/17 13:59 Ondansetron HCl 8 mg/ Sodium (Chloride) 104 mls @ 208 mls/hr IVPB ONCE ONE Stop: 11/03/17 13:59 Doxorubicin HCl 15 mg/Etoposide 75 mg/ Vincristine Sulfate 0.5 mg/ Sodium Chloride 1,011.75 mls @ 42.156 mls/hr IV ONCE ONE Stop: 11/04/17 13:59 Pantoprazole Sodium (Protonix -) 20 mg PO DAILY [facility] Prednisone 80 mg/ Prednisone (10 mg) 90 mg PO DAILY [facility] Senna (Senna -) 2 tab PO HS PRN PRN Reason: CONSTIPATION Trimethoprim/Sulfamethoxazole (Bactrim Ds -) 1 each PO DAILY [facility] Valacyclovir HCl (Valtrex -) 500 mg PO DAILY [facility] Last Admin: 11/02/17 17:58 Dose: 500 mg A/P 57 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 10/26/17 monitor for toxicities
[2017-11-02] MEDS ORDERED: ONDANSETRON 4 MG/2 ML VIAL IVPB PRN (20:15)
[2017-11-02] MEDS: SENNOSIDES 8.6MG TABLET (FP) PO PRN (21:22)
[2017-11-02] MEDS: ALPRAZolam 0.25 MG TABLET PO PRN (21:22)
[2017-11-03] MEDS: DOCUSATE SODIUM 100 MG CAPSULE (FP) PO SCH ×3 (05:44→21:14)
[2017-11-03 07:39] LABS: BASO % 0.1 % (0-2.0); HEMATOCRIT 32.9 % (32.4-45.2); HEMOGLOBIN 11.1 GM/dL (10.7-15.3); MCH 31.3 pg (25.7-33.7); MCHC 33.6 g/dl (32.0-36.0); MEAN CELL VOLUME 93.2 fl (80-96); MEAN PLT VOLUME 8.3 fl (7.5-11.1); MONO % 0.3 % (3.8-10.2); NEUT % 98.6 % (42.8-82.8); PLATELET COUNT 294 K/MM3 (134-434); RBC 3.53 M/mm3 (3.60-5.2); RDW 19.8 % (11.6-15.6); WHITE BLOOD COUNT 11.1 K/mm3 (4.0-10.0)
[2017-11-03 08:07] LABS: ALBUMIN 3.2 g/dl (3.4-5.0); ANION GAP 10 (8-16); BLOOD UREA NITROGEN 16 mg/dL (7-18); CALCIUM 8.7 mg/dL (8.5-10.1); CHLORIDE 108 mmol/L (98-107); CO2 22 mmol/L (21-32); GLUCOSE,RANDOM 137 mg/dL (74-106); POTASSIUM 4.2 mmol/L (3.5-5.1); SODIUM 140 mmol/L (136-145)
[2017-11-03 08:12] LABS: ALK PHOS 115 U/L (45-117); BILIRUBIN,TOTAL 0.3 mg/dL (0.2-1.0); CREATININE 0.5 mg/dL (0.55-1.02); LDH 163 U/L (84-246); SGOT/AST 24 U/L (15-37); SGPT/ALT 74 U/L (12-78); TOT PROT 6.2 g/dl (6.4-8.2)
[2017-11-03] MEDS ORDERED: predniSONE 20 MG TABLET (UD) ONE (09:04)
[2017-11-03] MEDS ORDERED: predniSONE 10 MG TABLET (UD) ONE (09:04)
[2017-11-03] MEDS: PANTOPRAZOLE 20 MG TABLET (FP) PO SCH (09:08)
[2017-11-03] MEDS: valACYclovir HCL 500 MG TABLET (FP) PO SCH (09:08)
[2017-11-03] MEDS: ALLOPURINOL 300 MG TABLET (FP) PO SCH (09:08)
[2017-11-03] MEDS ORDERED: ALLOPURINOL 300 MG TABLET (FP) PO SCH (10:00)
[2017-11-03] MEDS ORDERED: valACYclovir HCL 500 MG TABLET (FP) PO SCH (10:00)
[2017-11-03] MEDS ORDERED: SULFAMETHOXAZOLE/TRIMETHOPRIM 800MG/160MG D.S. TABLET PO SCH (10:00)
[2017-11-03] MEDS ORDERED: PORTA CATH FLUSH 10 ML IVPUSH ONE (10:57)
[2017-11-03] MEDS ORDERED: ONDANSETRON INJECTION 8 MG in SODIUM CHLORIDE 100 ML IVPB ONE (13:30)
[2017-11-03] MEDS ORDERED: [UNRECOGNIZED DRUG - OTHER] IV ONE (14:00)
[2017-11-03] MEDS ORDERED: DOXORUBICIN HCL IV ONE (14:00)
[2017-11-03] MEDS ORDERED: VINCRISTINE SULFATE IV ONE (14:00)
[2017-11-03] MEDS ORDERED: ETOPOSIDE IV ONE (14:00)
[2017-11-03] MEDS ORDERED: FUROSEMIDE 40 MG/4 ML INJECTABLE VIAL IVPUSH ONE (15:43)
[2017-11-03] MEDS: SENNOSIDES 8.6MG TABLET (FP) PO PRN (21:14)
[2017-11-03] MEDS: MELATONIN 5 MG TABLETS PO SCH (21:14)
--- NOTE | 2017-11-03 21:58 | PN ---
Progress Note (short form) - Note Progress Note: tolerating well. no issues Cor: RSR, No murmurs, No gallops Lungs: Clear to P&A Abd: Soft, Normal bowel sounds, No organomegaly Ext:minimal edema Last Vital Signs Temp Pulse Resp BP Pulse Ox 98.1 F 73 18 118/75 99 11/03/17 18:27 11/03/17 18:27 11/03/17 18:27 11/03/17 18:27 11/03/17 21:00 CBC, BMP 11/03/17 06:00 11/03/17 06:00 Current Medications Generic Name Dose Route Start Last Admin Trade Name Freq PRN Reason Stop Dose Admin Acetaminophen 650 mg 11/02/17 13:14 Tylenol - PO Q4H PRN FEVER Allopurinol 300 mg 11/02/17 16:00 11/03/17 09:08 Zyloprim - PO 300 mg DAILY JOHN Administration Alprazolam 0.25 mg 11/02/17 22:00 11/02/17 21:22 Xanax - PO 0.25 mg HS PRN Administration ANXIETY Docusate Sodium 100 mg 11/02/17 14:00 11/03/17 21:14 Colace - PO 100 mg TID JOHN Administration Doxorubicin HCl 15 mg/ 1,011.75 mls @ 42.156 mls/hr 11/03/17 14:00 11/03/17 18:33 Etoposide 75 mg/ Vincristine IV 11/04/17 13:59 42.156 mls/hr Sulfate 0.5 mg/ Sodium ONCE ONE Administration Chloride Ondansetron HCl 8 mg/ Sodium 104 mls @ 208 mls/hr 11/04/17 13:30 Chloride IVPB 11/04/17 13:59 ONCE ONE Doxorubicin HCl 15 mg/ 1,011.75 mls @ 42.156 mls/hr 11/04/17 14:00 Etoposide 75 mg/ Vincristine IV 11/05/17 13:59 Sulfate 0.5 mg/ Sodium ONCE ONE Chloride Ondansetron HCl 8 mg/ Sodium 104 mls @ 208 mls/hr 11/05/17 13:30 Chloride IVPB 11/05/17 13:59 ONCE ONE Doxorubicin HCl 15 mg/ 1,011.75 mls @ 42.156 mls/hr 11/05/17 14:00 Etoposide 75 mg/ Vincristine IV 11/06/17 13:59 Sulfate 0.5 mg/ Sodium ONCE ONE Chloride Melatonin 10 mg 11/03/17 22:00 11/03/17 21:14 Melatonin PO 10 mg HS JOHN Administration Ondansetron HCl 4 mg 11/02/17 20:15 11/03/17 09:09 Zofran Injection IVPB 4 mg ONCE PRN Administration NAUSEA Pantoprazole Sodium 20 mg 11/03/17 10:00 11/03/17 09:08 Protonix - PO 20 mg DAILY JOHN Administration Prednisone 80 mg/ Prednisone 90 mg 11/03/17 10:00 11/03/17 09:08 10 mg PO 90 mg DAILY JOHN Administration Senna 2 tab 11/02/17 22:00 11/03/17 21:14 Senna - PO 2 tab HS PRN Administration CONSTIPATION Trimethoprim/Sulfamethoxazole 1 each 11/04/17 10:00 Bactrim Ds - PO MoWeFr@1000 JOHN Valacyclovir HCl 500 mg 11/02/17 16:00 11/03/17 09:08 Valtrex - PO 500 mg DAILY JOHN Administration 57 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
[2017-11-04] MEDS: DOCUSATE SODIUM 100 MG CAPSULE (FP) PO SCH ×3 (05:38→21:20)
[2017-11-04 08:00] LABS: BASO % 0.1 % (0-2.0); HEMATOCRIT 28.8 % (32.4-45.2); HEMOGLOBIN 9.7 GM/dL (10.7-15.3); LYMPH % 3.3 % (8-40); MCH 31.5 pg (25.7-33.7); MCHC 33.6 g/dl (32.0-36.0); MEAN CELL VOLUME 93.8 fl (80-96); MEAN PLT VOLUME 8.1 fl (7.5-11.1); MONO % 6.7 % (3.8-10.2); NEUT % 89.9 % (42.8-82.8); PLATELET COUNT 259 K/MM3 (134-434); RBC 3.07 M/mm3 (3.60-5.2); RDW 19.6 % (11.6-15.6); WHITE BLOOD COUNT 8.5 K/mm3 (4.0-10.0)
[2017-11-04 08:21] LABS: ALBUMIN 2.8 g/dl (3.4-5.0); ALK PHOS 91 U/L (45-117); ANION GAP 10 (8-16); BILIRUBIN,TOTAL 0.3 mg/dL (0.2-1.0); BLOOD UREA NITROGEN 14 mg/dL (7-18); CALCIUM 8.6 mg/dL (8.5-10.1); CHLORIDE 111 mmol/L (98-107); CO2 24 mmol/L (21-32); CREATININE 0.5 mg/dL (0.55-1.02); GLUCOSE,RANDOM 66 mg/dL (74-106); LDH 139 U/L (84-246); POTASSIUM 3.6 mmol/L (3.5-5.1); SGOT/AST 18 U/L (15-37); SGPT/ALT 52 U/L (12-78); SODIUM 145 mmol/L (136-145); TOT PROT 5.3 g/dl (6.4-8.2)
[2017-11-04] MEDS ORDERED: predniSONE 20 MG TABLET (UD) ONE (09:32)
[2017-11-04] MEDS ORDERED: predniSONE 10 MG TABLET (UD) ONE (09:32)
[2017-11-04] MEDS: ALLOPURINOL 300 MG TABLET (FP) PO SCH (09:37)
[2017-11-04] MEDS: PANTOPRAZOLE 20 MG TABLET (FP) PO SCH (09:37)
[2017-11-04] MEDS: valACYclovir HCL 500 MG TABLET (FP) PO SCH (09:37)
[2017-11-04] MEDS: SULFAMETHOXAZOLE/TRIMETHOPRIM 800MG/160MG D.S. TABLET PO SCH (09:37)
--- NOTE | 2017-11-04 11:21 | PN ---
Progress Note (short form) - Note Progress Note: tolerating well. no issues Cor: RSR, No murmurs, No gallops Lungs: Clear to P&A Abd: Soft, Normal bowel sounds, No organomegaly Ext:no edema Last Vital Signs Temp Pulse Resp BP Pulse Ox 98.3 F 72 20 124/76 97 11/04/17 09:27 11/04/17 09:27 11/04/17 09:27 11/04/17 09:27 11/04/17 09:00 CBC, BMP 11/04/17 06:00 11/04/17 06:00 Current Medications Generic Name Dose Route Start Last Admin Trade Name Freq PRN Reason Stop Dose Admin Acetaminophen 650 mg 11/02/17 13:14 Tylenol - PO Q4H PRN FEVER Allopurinol 300 mg 11/02/17 16:00 11/04/17 09:37 Zyloprim - PO 300 mg DAILY JOHN Administration Alprazolam 0.25 mg 11/02/17 22:00 11/02/17 21:22 Xanax - PO 0.25 mg HS PRN Administration ANXIETY Docusate Sodium 100 mg 11/02/17 14:00 11/04/17 05:38 Colace - PO 100 mg TID JOHN Administration Doxorubicin HCl 15 mg/ 1,011.75 mls @ 42.156 mls/hr 11/03/17 14:00 11/03/17 18:33 Etoposide 75 mg/ Vincristine IV 11/04/17 13:59 42.156 mls/hr Sulfate 0.5 mg/ Sodium ONCE ONE Administration Chloride Ondansetron HCl 8 mg/ Sodium 104 mls @ 208 mls/hr 11/04/17 13:30 Chloride IVPB 11/04/17 13:59 ONCE ONE Doxorubicin HCl 15 mg/ 1,011.75 mls @ 42.156 mls/hr 11/04/17 14:00 Etoposide 75 mg/ Vincristine IV 11/05/17 13:59 Sulfate 0.5 mg/ Sodium ONCE ONE Chloride Ondansetron HCl 8 mg/ Sodium 104 mls @ 208 mls/hr 11/05/17 13:30 Chloride IVPB 11/05/17 13:59 ONCE ONE Doxorubicin HCl 15 mg/ 1,011.75 mls @ 42.156 mls/hr 11/05/17 14:00 Etoposide 75 mg/ Vincristine IV 11/06/17 13:59 Sulfate 0.5 mg/ Sodium ONCE ONE Chloride Melatonin 10 mg 11/03/17 22:00 11/03/17 21:14 Melatonin PO 10 mg HS JOHN Administration Ondansetron HCl 4 mg 11/02/17 20:15 11/03/17 09:09 Zofran Injection IVPB 4 mg ONCE PRN Administration NAUSEA Pantoprazole Sodium 20 mg 11/03/17 10:00 11/04/17 09:37 Protonix - PO 20 mg DAILY JOHN Administration Prednisone 80 mg/ Prednisone 90 mg 11/03/17 10:00 11/04/17 09:37 10 mg PO 90 mg DAILY JOHN Administration Senna 2 tab 11/02/17 22:00 11/03/17 21:14 Senna - PO 2 tab HS PRN Administration CONSTIPATION Trimethoprim/Sulfamethoxazole 1 each 11/04/17 10:00 11/04/17 09:37 Bactrim Ds - PO 1 each MoWeFr@1000 JOHN Administration Valacyclovir HCl 500 mg 11/02/17 16:00 11/04/17 09:37 Valtrex - PO 500 mg DAILY JOHN Administration 57 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
[2017-11-04] MEDS ORDERED: ONDANSETRON INJECTION 8 MG in SODIUM CHLORIDE 100 ML IVPB ONE (13:30)
[2017-11-04] MEDS ORDERED: [UNRECOGNIZED DRUG - OTHER] IV ONE (14:00)
[2017-11-04] MEDS ORDERED: VINCRISTINE SULFATE IV ONE (14:00)
[2017-11-04] MEDS ORDERED: DOXORUBICIN HCL IV ONE (14:00)
[2017-11-04] MEDS ORDERED: ETOPOSIDE IV ONE (14:00)
[2017-11-04] MEDS: MELATONIN 5 MG TABLETS PO SCH (21:20)
[2017-11-04] MEDS: ALPRAZolam 0.25 MG TABLET PO PRN (21:20)
[2017-11-05] MEDS: DOCUSATE SODIUM 100 MG CAPSULE (FP) PO SCH ×3 (06:13→22:13)
[2017-11-05 10:20] LABS: ALBUMIN 3.1 g/dl (3.4-5.0); ANION GAP 9 (8-16); BLOOD UREA NITROGEN 11 mg/dL (7-18); CALCIUM 7.9 mg/dL (8.5-10.1); CHLORIDE 112 mmol/L (98-107); CO2 23 mmol/L (21-32); GLUCOSE,RANDOM 107 mg/dL (74-106); MAGNESIUM 1.7 mg/dL (1.8-2.4); POTASSIUM 3.4 mmol/L (3.5-5.1); SODIUM 144 mmol/L (136-145)
[2017-11-05 10:25] LABS: ALK PHOS 85 U/L (45-117); BILIRUBIN,TOTAL 0.4 mg/dL (0.2-1.0); CREATININE 0.6 mg/dL (0.55-1.02); SGOT/AST 15 U/L (15-37); SGPT/ALT 45 U/L (12-78); TOT PROT 5.5 g/dl (6.4-8.2)
[2017-11-05] MEDS ORDERED: predniSONE 10 MG TABLET (UD) ONE (11:19)
[2017-11-05] MEDS ORDERED: predniSONE 20 MG TABLET (UD) ONE (11:20)
[2017-11-05] MEDS: ALLOPURINOL 300 MG TABLET (FP) PO SCH (11:38)
[2017-11-05] MEDS: valACYclovir HCL 500 MG TABLET (FP) PO SCH (11:38)
[2017-11-05] MEDS: PANTOPRAZOLE 20 MG TABLET (FP) PO SCH (11:39)
[2017-11-05 12:57] LABS: BASO % 0.4 % (0-2.0); EOS % 0.1 % (0-4.5); HEMATOCRIT 32.6 % (32.4-45.2); HEMOGLOBIN 10.8 GM/dL (10.7-15.3); LYMPH % 5.4 % (8-40); MCH 31.2 pg (25.7-33.7); MCHC 33.2 g/dl (32.0-36.0); MEAN PLT VOLUME 7.8 fl (7.5-11.1); MONO % 8.5 % (3.8-10.2); NEUT % 85.6 % (42.8-82.8); PLATELET COUNT 324 K/MM3 (134-434); RBC 3.47 M/mm3 (3.60-5.2); RDW 20.5 % (11.6-15.6); WHITE BLOOD COUNT 6.1 K/mm3 (4.0-10.0)
--- NOTE | 2017-11-05 13:28 | PN ---
Progress Note (short form) - Note Progress Note: tolerating well. no issues Cor: RSR, No murmurs, No gallops Lungs: Clear to P&A Abd: Soft, Normal bowel sounds, No organomegaly Ext:no edema Last Vital Signs Temp Pulse Resp BP Pulse Ox 97.7 F 68 18 110/78 97 11/05/17 11:35 11/05/17 11:35 11/05/17 11:35 11/05/17 11:35 11/04/17 20:24 CBC, BMP 11/05/17 09:30 11/05/17 09:30 Current Medications Generic Name Dose Route Start Last Admin Trade Name Freq PRN Reason Stop Dose Admin Acetaminophen 650 mg 11/02/17 13:14 Tylenol - PO Q4H PRN FEVER Allopurinol 300 mg 11/02/17 16:00 11/05/17 11:38 Zyloprim - PO 300 mg DAILY JOHN Administration Alprazolam 0.25 mg 11/02/17 22:00 11/04/17 21:20 Xanax - PO 0.25 mg HS PRN Administration ANXIETY Docusate Sodium 100 mg 11/02/17 14:00 11/05/17 06:13 Colace - PO Not Given TID JOHN Doxorubicin HCl 15 mg/ 1,011.75 mls @ 42.156 mls/hr 11/04/17 14:00 11/04/17 18:32 Etoposide 75 mg/ Vincristine IV 11/05/17 13:59 42.156 mls/hr Sulfate 0.5 mg/ Sodium ONCE ONE Administration Chloride Ondansetron HCl 8 mg/ Sodium 104 mls @ 208 mls/hr 11/05/17 13:30 Chloride IVPB 11/05/17 13:59 ONCE ONE Doxorubicin HCl 15 mg/ 1,011.75 mls @ 42.156 mls/hr 11/05/17 14:00 Etoposide 75 mg/ Vincristine IV 11/06/17 13:59 Sulfate 0.5 mg/ Sodium ONCE ONE Chloride Magnesium Sulfate 2 gm 11/05/17 13:30 Magnesium Sulfate IVPB 11/05/17 13:31 ONCE ONE Melatonin 10 mg 11/03/17 22:00 11/04/17 21:20 Melatonin PO Not Given HS JOHN Ondansetron HCl 4 mg 11/02/17 20:15 03/06/18 09:09 Zofran Injection IVPB 4 mg ONCE PRN Administration NAUSEA Pantoprazole Sodium 20 mg 11/03/17 10:00 11/05/17 11:39 Protonix - PO 20 mg DAILY JOHN Administration Potassium Chloride 20 meq 11/05/17 13:30 K-Dur - PO 11/05/17 13:31 ONCE ONE Prednisone 80 mg/ Prednisone 90 mg 11/03/17 10:00 11/05/17 11:36 10 mg PO 90 mg DAILY JOHN Administration Senna 2 tab 11/02/17 22:00 11/03/17 21:14 Senna - PO 2 tab HS PRN Administration CONSTIPATION Trimethoprim/Sulfamethoxazole 1 each 11/04/17 10:00 11/04/17 09:37 Bactrim Ds - PO 1 each MoWeFr@1000 JOHN Administration Valacyclovir HCl 500 mg 11/02/17 16:00 11/05/17 11:38 Valtrex - PO 500 mg DAILY JOHN Administration 57 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
[2017-11-05] MEDS ORDERED: ONDANSETRON INJECTION 8 MG in SODIUM CHLORIDE 100 ML IVPB ONE (13:30)
[2017-11-05] MEDS ORDERED: POTASSIUM CHLORIDE TABS 20 MEQ TABLET.ER (FP) PO ONE (13:30)
[2017-11-05] MEDS ORDERED: MAGNESIUM SULF 50% (8.12 MEQ/2 ML-1 GM VIAL) IVPB ONE (13:30)
[2017-11-05] MEDS ORDERED: VINCRISTINE SULFATE IV ONE (14:00)
[2017-11-05] MEDS ORDERED: ETOPOSIDE IV ONE (14:00)
[2017-11-05] MEDS ORDERED: DOXORUBICIN HCL IV ONE (14:00)
[2017-11-05] MEDS ORDERED: [UNRECOGNIZED DRUG - OTHER] IV ONE (14:00)
[2017-11-05] MEDS: SENNOSIDES 8.6MG TABLET (FP) PO PRN (14:01)
[2017-11-05] MEDS ORDERED: FUROSEMIDE 40 MG/4 ML INJECTABLE VIAL IVPUSH ONE (15:17)
[2017-11-05] MEDS ORDERED: FUROSEMIDE 40 MG/4 ML INJECTABLE VIAL ONE (17:40)
[2017-11-05] MEDS: SODIUM CHLORIDE 1,000 ML IV SCH (20:30)
[2017-11-05] MEDS ORDERED: ALPRAZolam 0.25 MG TABLET PO PRN (20:44)
[2017-11-05] MEDS: MELATONIN 5 MG TABLETS PO SCH (22:13)
[2017-11-06] MEDS: DOCUSATE SODIUM 100 MG CAPSULE (FP) PO SCH ×2 (06:10→15:40)
[2017-11-06 07:55] LABS: BASO % 0.4 % (0-2.0); EOS % 0.1 % (0-4.5); HEMATOCRIT 29.5 % (32.4-45.2); LYMPH % 8.2 % (8-40); MCH 31.8 pg (25.7-33.7); MEAN CELL VOLUME 93.5 fl (80-96); MEAN PLT VOLUME 7.7 fl (7.5-11.1); NEUT % 85.3 % (42.8-82.8); PLATELET COUNT 272 K/MM3 (134-434); RBC 3.16 M/mm3 (3.60-5.2); RDW 19.4 % (11.6-15.6)
[2017-11-06 09:21] LABS: ALBUMIN 2.8 g/dl (3.4-5.0); ALK PHOS 77 U/L (45-117); ANION GAP 6 (8-16); BILIRUBIN,TOTAL 0.4 mg/dL (0.2-1.0); BLOOD UREA NITROGEN 14 mg/dL (7-18); CALCIUM 8.5 mg/dL (8.5-10.1); CHLORIDE 109 mmol/L (98-107); CO2 28 mmol/L (21-32); CREATININE 0.4 mg/dL (0.55-1.02); GLUCOSE,RANDOM 60 mg/dL (74-106); MAGNESIUM 2.4 mg/dL (1.8-2.4); POTASSIUM 3.8 mmol/L (3.5-5.1); SGOT/AST 15 U/L (15-37); SGPT/ALT 39 U/L (12-78); SODIUM 143 mmol/L (136-145); TOT PROT 5.4 g/dl (6.4-8.2)
[2017-11-06] MEDS ORDERED: predniSONE 10 MG TABLET (UD) ONE (09:45)
[2017-11-06] MEDS ORDERED: predniSONE 20 MG TABLET (UD) ONE (09:45)
[2017-11-06] MEDS: PANTOPRAZOLE 20 MG TABLET (FP) PO SCH (09:51)
[2017-11-06] MEDS: ALLOPURINOL 300 MG TABLET (FP) PO SCH (09:55)
[2017-11-06] MEDS: valACYclovir HCL 500 MG TABLET (FP) PO SCH (09:55)
[2017-11-06] MEDS: SULFAMETHOXAZOLE/TRIMETHOPRIM 800MG/160MG D.S. TABLET PO SCH (09:56)
--- NOTE | 2017-11-06 11:51 | PN ---
Progress Note (short form) - Note Progress Note: Patient seen and examined Continues on infusional therapy Tolerating well to date Last Vital Signs Temp Pulse Resp BP Pulse Ox 97.6 F 74 18 135/63 96 11/06/17 09:58 11/06/17 09:58 11/06/17 09:58 11/06/17 09:58 11/05/17 20:29 HEENT: JACQUES, EOM Intact Oropharynx: No thrush, No mucositis Neck: Supple Nodes: Without adenopathy Cor: RSR, No murmurs, No gallops Lungs: Clear to P&A Abd: Soft, Normal bowel sounds, No organomegaly Ext:No significant edema Skin: No rashes, Integument intact CBC, BMP 11/06/17 06:35 11/06/17 06:35 Current Medications Generic Name Dose Route Start Last Admin Trade Name Freq PRN Reason Stop Dose Admin Acetaminophen 650 mg 11/02/17 13:14 Tylenol - PO Q4H PRN FEVER Allopurinol 300 mg 11/02/17 16:00 11/06/17 09:55 Zyloprim - PO 300 mg DAILY JOHN Administration Alprazolam 0.25 mg 11/05/17 20:44 11/05/17 22:12 Xanax - PO 0.25 mg HS PRN Administration ANXIETY Docusate Sodium 100 mg 11/02/17 14:00 11/06/17 06:10 Colace - PO 100 mg TID JOHN Administration Doxorubicin HCl 15 mg/ 1,011.75 mls @ 42.156 mls/hr 11/05/17 14:00 11/05/17 18:43 Etoposide 75 mg/ Vincristine IV 11/06/17 13:59 42.156 mls/hr Sulfate 0.5 mg/ Sodium ONCE ONE Administration Chloride Ondansetron HCl 12 mg/ Sodium 106 mls @ 212 mls/hr 11/06/17 14:00 Chloride IVPB 11/06/17 14:29 ONCE ONE Cyclophosphamide 1,120 mg/ 306 mls @ 306 mls/hr 11/06/17 14:30 Sodium Chloride IVPB 11/06/17 15:29 ONCE ONE Sodium Chloride 1,000 mls @ 50 mls/hr 11/05/17 19:00 11/05/17 20:30 Normal Saline - IV Not Given ASDIR JOHN Melatonin 10 mg 11/03/17 22:00 11/05/17 22:13 Melatonin PO Not Given HS JOHN Ondansetron HCl 4 mg 11/02/17 20:15 11/03/17 09:09 Zofran Injection IVPB 4 mg ONCE PRN Administration NAUSEA Pantoprazole Sodium 20 mg 11/03/17 10:00 11/06/17 09:51 Protonix - PO 20 mg DAILY JOHN Administration Prednisone 80 mg/ Prednisone 90 mg 11/03/17 10:00 11/06/17 09:56 10 mg PO 90 mg DAILY JOHN Administration Senna 2 tab 11/02/17 22:00 11/05/17 14:01 Senna - PO 2 tab HS PRN Administration CONSTIPATION Trimethoprim/Sulfamethoxazole 1 each 11/04/17 10:00 11/06/17 09:56 Bactrim Ds - PO 1 each MoWeFr@1000 JOHN Administration Valacyclovir HCl 500 mg 11/02/17 16:00 11/06/17 09:55 Valtrex - PO 500 mg DAILY JOHN Administration Impression: R-EPOCH chemotherapy Mediastinal "B" cell lymphoma Anemia secondary to chemotherapy Plan: Continue with infusional therapy. For Cytoxan 11/07, neulasta -11/09
[2017-11-06] MEDS: SODIUM CHLORIDE 1,000 ML IV SCH (13:48)
[2017-11-06] MEDS ORDERED: SODIUM CHLORIDE IVPB ONE ×2 (14:00→14:30)
[2017-11-06] MEDS ORDERED: ONDANSETRON IVPB ONE (14:00)
[2017-11-06] MEDS ORDERED: CYCLOPHOSPHAMIDE IVPB ONE (14:30)
[2017-11-06] MEDS: SENNOSIDES 8.6MG TABLET (FP) PO PRN (15:39)
[2017-11-06 18:30] VITALS: BP 133/81; PULSE 75; TEMP 98.5
[2017-11-07] MEDS ORDERED: PEGFILGRASTIM 6 MG/0.6 ML DISP.SYRIN SQ ONE (10:00)
== END 2017-11-06 18:55 | disposition home or self-care (01) | DRG 693 ==
LOC: JONCCHEMO 07:15 → EDSTATUS 07:34 → J7W 09:33
PROVIDERS: ADMIT Internal Medicine Hematology & Oncology; ATTEND Internal Medicine Hematology & Oncology
DX: Z51.11 Encounter for antineoplastic chemotherapy (principal); C85.20 Mediastinal (thymic) large B-cell lymphoma, unspecified site; E87.6 Hypokalemia; E83.42 Hypomagnesemia; D63.0 Anemia in neoplastic disease
CPT/HCPCS: 36415; 80048; 80053; 80076; 83615; 83735; 84100; 84550; 85025; 85651; 96361; 96367; 96375; J1100; J1453; J9070; J9181; J9310; J9370

== ENCOUNTER 2017-11-09 07:36 | Day surgery (SDC) | payer OTHER ==
[2017-11-09] MEDS ORDERED: PEGFILGRASTIM 6 MG/0.6 ML DISP.SYRIN SQ ONE (10:00)
[2017-11-09 10:06] LABS: BASO % 1.1 % (0-2.0); EOS % 2.7 % (0-4.5); HEMATOCRIT 35.2 % (32.4-45.2); HEMOGLOBIN 12.2 GM/dL (10.7-15.3); LYMPH % 2.9 % (8-40); MCH 32.1 pg (25.7-33.7); MCHC 34.7 g/dl (32.0-36.0); MEAN CELL VOLUME 92.5 fl (80-96); MEAN PLT VOLUME 7.6 fl (7.5-11.1); MONO % 1.2 % (3.8-10.2); NEUT % 92.1 % (42.8-82.8); PLATELET COUNT 378 K/MM3 (134-434); RBC 3.81 M/mm3 (3.60-5.2); RDW 18.4 % (11.6-15.6); WHITE BLOOD COUNT 5.9 K/mm3 (4.0-10.0)
[2017-11-09 10:29] LABS: ALBUMIN 3.7 g/dl (3.4-5.0); ALK PHOS 87 U/L (45-117); ANION GAP 9 (8-16); BILIRUBIN,DIRECT < 0.2 mg/dL (0.0-0.2); BILIRUBIN,TOTAL 0.5 mg/dL (0.2-1.0); BLOOD UREA NITROGEN 28 mg/dL (7-18); CALCIUM 8.8 mg/dL (8.5-10.1); CHLORIDE 106 mmol/L (98-107); CO2 23 mmol/L (21-32); CREATININE 0.7 mg/dL (0.55-1.02); GLUCOSE,RANDOM 104 mg/dL (74-106); MAGNESIUM 1.9 mg/dL (1.8-2.4); POTASSIUM 4.3 mmol/L (3.5-5.1); SGOT/AST 14 U/L (15-37); SGPT/ALT 35 U/L (12-78); SODIUM 138 mmol/L (136-145); TOT PROT 6.7 g/dl (6.4-8.2)
[2017-11-09 11:34] LABS: URINE APPEARANCE CLOUDY; URINE BILIRUBIN NEGATIVE (NEGATIVE); URINE BLOOD NEGATIVE (NEGATIVE); URINE GLUCOSE (UA) NEGATIVE (NEGATIVE); URINE KETONE NEGATIVE (NEGATIVE); URINE NITRITE NEGATIVE (NEGATIVE); URINE PROTEIN NEGATIVE (NEGATIVE); URINE UROBILINOGEN NEGATIVE mg/dL (0.2-1.0)
[2017-11-09 11:37] LABS: URINE COLOR DK YELLOW; URINE LEUK ESTERASE 2+ (NEGATIVE)
[2017-11-09 11:44] LABS: EPI CELLS RARE /HPF (FEW)
[2017-11-09 12:07] LABS: URINE BACTERIA MANY /hpf (NONE SEEN)
[2017-11-09 17:36] VITALS: BP 104/68; PULSE 96; TEMP 97.8
== END 2017-11-09 12:00 | disposition home or self-care (01) ==
LOC: JONCCHEMO 07:36 → J7W 10:40 → JONCCHEMO 12:00
PROVIDERS: ATTEND Internal Medicine Hematology & Oncology
PROC: 3E013GC Introduction of Other Therapeutic Substance into Subcutaneous Tissue, Percutaneous Approach (ICD-10-PCS; principal; 2017-11-09)
DX: C85.20 Mediastinal (thymic) large B-cell lymphoma, unspecified site (principal); Z76.89 Persons encountering health services in other specified circumstances
CPT/HCPCS: 36415; 80053; 80076; 81003; 81015; 83735; 85025; 87086; 87186; 96372; J2505

== ENCOUNTER 2017-11-30 10:28 | Inpatient (IN) | payer OTHER ==
[2017-11-30] MEDS ORDERED: ACETAMINOPHEN 325 MG TABLET (FP) PO PRN (11:53)
[2017-11-30 12:34] LABS: BASO % 0.8 % (0-2.0); HEMATOCRIT 30.1 % (32.4-45.2); HEMOGLOBIN 10.1 GM/dL (10.7-15.3); LYMPH % 6.4 % (8-40); MCH 32.5 pg (25.7-33.7); MCHC 33.6 g/dl (32.0-36.0); MEAN CELL VOLUME 96.6 fl (80-96); MEAN PLT VOLUME 8.3 fl (7.5-11.1); MONO % 13.2 % (3.8-10.2); NEUT % 78.6 % (42.8-82.8); PLATELET COUNT 244 K/MM3 (134-434); RBC 3.12 M/mm3 (3.60-5.2); RDW 17.3 % (11.6-15.6); WHITE BLOOD COUNT 4.6 K/mm3 (4.0-10.0)
[2017-11-30 13:02] LABS: ALBUMIN 3.8 g/dl (3.4-5.0); ANION GAP 8 (8-16); BILIRUBIN,DIRECT < 0.2 mg/dL (0.0-0.2); BLOOD UREA NITROGEN 19 mg/dL (7-18); CALCIUM 8.9 mg/dL (8.5-10.1); CHLORIDE 109 mmol/L (98-107); CO2 25 mmol/L (21-32); CREATININE 0.5 mg/dL (0.55-1.02); GLUCOSE,RANDOM 75 mg/dL (74-106); LDH 159 U/L (84-246); MAGNESIUM 1.7 mg/dL (1.8-2.4); POTASSIUM 4.1 mmol/L (3.5-5.1); SGOT/AST 23 U/L (15-37); SGPT/ALT 27 U/L (12-78); SODIUM 142 mmol/L (136-145); TOT PROT 6.5 g/dl (6.4-8.2); URIC ACID 1.8 mg/dL (2.6-7.2)
[2017-11-30 13:03] LABS: ALK PHOS 82 U/L (45-117); BILIRUBIN,TOTAL 0.2 mg/dL (0.2-1.0)
[2017-11-30] MEDS ORDERED: [UNRECOGNIZED DRUG - OTHER] IVPB ONE (13:15)
[2017-11-30] MEDS ORDERED: DIPHENHYDRAMINE IVPB ONE (13:15)
[2017-11-30] MEDS ORDERED: DOXORUBICIN HCL IV ONE (13:15)
[2017-11-30] MEDS ORDERED: RITUXIMAB IVPB ONE (13:15)
[2017-11-30] MEDS ORDERED: SODIUM CHLORIDE IVPB ONE (13:15)
[2017-11-30] MEDS ORDERED: [UNRECOGNIZED DRUG - OTHER] IV ONE (13:15)
[2017-11-30] MEDS ORDERED: ACETAMINOPHEN 325 MG TABLET (FP) PO ONE (13:15)
[2017-11-30] MEDS ORDERED: ETOPOSIDE IV ONE (13:15)
[2017-11-30] MEDS ORDERED: ONDANSETRON IVPB ONE (13:15)
[2017-11-30] MEDS ORDERED: DEXAMETHASONE IVPB ONE (13:15)
[2017-11-30] MEDS ORDERED: VINCRISTINE SULFATE IV ONE (13:15)
[2017-11-30] MEDS ORDERED: FOSAPREPITANT DIMEGLUMINE 150 MG in SODIUM CHLORIDE 145 ML IVPB ONE (13:15)
[2017-11-30] MEDS ORDERED: DEXTROSE 5%-NORMAL SALINE 500 ML IV SCH (13:30)
[2017-11-30] MEDS ORDERED: DEXTROSE 5%-NORMAL SALINE 250 ML IV SCH (13:30)
[2017-11-30 14:05] VITALS: BMI 23.8
[2017-11-30 14:06] LABS: ERYTHROCYTE SEDIMENTATION RATE 3 mm/hr (0-30)
--- NOTE | 2017-11-30 16:12 | HP ---
Satellite [facility] - Chief Complaint Chief Complaint: PAtient seen and examined. Denies any fever/chills/cough/SOB/ abdominal pain/nausea/vomiting. History Source: Patient Limitations to Obtaining History: No Limitations - Past Medical History Allergies/Adverse Reactions: Allergies Allergy/AdvReac Type Severity Reaction Status Date / Time Penicillins Allergy Mild Hives Verified 09/21/17 03:10 Renal/: Yes: Other (urethral stenosis and urinary regention-self catherizes solitary kidney) ...LMP: 06/26/14 - Current Medications Current Medications: Home Medications Medication Instructions Recorded Allopurinol 300 mg PO DAILY 09/21/17 Omeprazole 20 mg PO DAILY 09/21/17 Ondansetron HCl [Zofran] 8 mg PO DAILY 09/21/17 Polyethylene Glycol 3350 [Miralax 17 gm PO DAILY 09/21/17 (For Daily Use) -] Sennosides/Docusate Sodium 1 each PO DAILY 09/21/17 [Senna-Docusate Sodium Tablet] Sulfamethoxazole/Trimethoprim 1 tab PO DAILY 09/21/17 [Bactrim Ds -] Valacyclovir HCl [Valtrex] 500 mg PO DAILY 09/21/17 Satellite Physical Exam - Physical Examination Vital Signs: Vital Signs Period Temp Pulse Resp BP Sys/Oglesby Pulse Ox Last 24 Hr 98.0 F-98.3 F 82-85 14-20 96-101/64-65 96 General Appearance: Well Nourished, Alert & Oriented x3 Lung: Clear to auscultation, Normal air movement Heart: Regular rate & rhythm, Normal S1, Normal S2 Abdomen: Soft, No tenderness, Normal bowel sounds Extremities: No edema Neurological: Intact Satellite Impression/Plan - Impression/Plan Impression: 57 y/o patient with lymphoma here for C5 EPOCH. CT 11/15 shows resolution of mass. On gentle hydration
--- NOTE | 2017-11-30 16:35 | PN ---
<Milton Rivera - Last Filed: 11/30/17 16:29> Progress Note, Physician History of Present Illness: Heme/Onc Progress Note 57 yo F w/ h/o B cell lymphoma on modified R-EPOCH admitted to the hospital for inpatient chemotherapy. - Current Medication List Current Medications: Active Medications Acetaminophen (Tylenol -) 650 mg PO Q6H PRN PRN Reason: FEVER Allopurinol (Zyloprim -) 300 mg PO HS JOHN Alprazolam (Xanax -) 0.25 mg PO Q8H PRN PRN Reason: ANXIETY Docusate Sodium (Colace -) 100 mg PO DAILY JOHN IV Flush (Chelle-Cath Flush) 10 ml IVPUSH PRN PRN PRN Reason: port flush Stop: 12/25/17 23:59 Doxorubicin HCl 15 mg/Etoposide 75 mg/ Vincristine Sulfate 0.5 mg/ Sodium Chloride 1,011.75 mls @ 42.156 mls/hr IV ONCE ONE Stop: 12/01/17 13:14 Doxorubicin HCl 15 mg/Etoposide 75 mg/ Vincristine Sulfate 0.5 mg/ Sodium Chloride 1,011.75 mls @ 42.156 mls/hr IV ONCE ONE Stop: 12/02/17 17:29 Dextrose/Sodium Chloride (D5-Ns -) 1,000 mls @ 42 mls/hr IV ASDIR JOHN Ondansetron HCl (Zofran Injection) 8 mg IVPB ONCE ONE Stop: 12/01/17 17:01 Pantoprazole Sodium (Protonix -) 20 mg PO DAILY [facility] Prednisone (Deltasone -) 90 mg PO DAILY [facility] Senna (Senna -) 2 tab PO HS PRN PRN Reason: CONSTIPATION Trimethoprim/Sulfamethoxazole (Bactrim Ds -) 1 each PO MoWeFr@1000 [facility] Valacyclovir HCl (Valtrex -) 500 mg PO DAILY [facility] - Objective Vital Signs: Vital Signs Temperature 98.3 F 11/30/17 12:05 Pulse Rate 85 11/30/17 12:05 Respiratory Rate 20 11/30/17 12:05 Blood Pressure 101/65 11/30/17 12:05 O2 Sat by Pulse Oximetry (%) 96 11/30/17 12:28 Constitutional: Yes: No Distress, Calm Eyes: Yes: Conjunctiva Clear, PERRL HENT: Yes: Atraumatic, Normocephalic Neck: Yes: Supple, Trachea Midline Cardiovascular: Yes: Regular Rate and Rhythm Respiratory: Yes: CTA Bilaterally Gastrointestinal: Yes: Normal Bowel Sounds, Soft. No: Splenomegaly, Tenderness Extremities: No: Calf Tenderness Edema: No Peripheral Pulses WNL: Yes Neurological: Yes: Alert, Oriented Labs: CBC, BMP 11/30/17 11:30 11/30/17 11:30 Impression/Plan Impression/Plan: 57 yo F admitted for chemotherapy. # B cell lymphoma - On R-EPOCH, continue infusion therapy C5 D1 Visit type - Emergency Visit Emergency Visit: No - New Patient This patient is new to me today: Yes Date on this admission: 11/30/17 - Critical Care Critical Care patient: No - Discharge Referral Referred to [facility] Med P.C.: No <Kailyn Bryan - Last Filed: 11/30/17 22:08> Progress Note, Physician - Current Medication List Current Medications: Active Medications Acetaminophen (Tylenol -) 650 mg PO Q6H PRN PRN Reason: FEVER Allopurinol (Zyloprim -) 300 mg PO HS JOHN Alprazolam (Xanax -) 0.25 mg PO Q8H PRN PRN Reason: ANXIETY Docusate Sodium (Colace -) 100 mg PO DAILY JOHN IV Flush (Chelle-Cath Flush) 10 ml IVPUSH PRN PRN PRN Reason: port flush Stop: 12/25/17 23:59 Doxorubicin HCl 15 mg/Etoposide 75 mg/ Vincristine Sulfate 0.5 mg/ Sodium Chloride 1,011.75 mls @ 42.156 mls/hr IV ONCE ONE Stop: 12/01/17 13:14 Last Admin: 11/30/17 17:12 Dose: 42.156 mls/hr Doxorubicin HCl 15 mg/Etoposide 75 mg/ Vincristine Sulfate 0.5 mg/ Sodium Chloride 1,011.75 mls @ 42.156 mls/hr IV ONCE ONE Stop: 12/02/17 17:29 Dextrose/Sodium Chloride (D5-Ns -) 1,000 mls @ 42 mls/hr IV ASDIR JOHN Ondansetron HCl (Zofran Injection) 8 mg IVPB ONCE ONE Stop: 12/01/17 17:01 Pantoprazole Sodium (Protonix -) 20 mg PO DAILY JOHN Prednisone (Deltasone -) 90 mg PO DAILY JOHN Senna (Senna -) 2 tab PO HS PRN PRN Reason: CONSTIPATION Trimethoprim/Sulfamethoxazole (Bactrim Ds -) 1 each PO MoWeFr@1000 [facility] Valacyclovir HCl (Valtrex -) 500 mg PO DAILY [facility] - Objective Vital Signs: Vital Signs Temperature 97.8 F 11/30/17 18:00 Pulse Rate 83 11/30/17 18:00 Respiratory Rate 20 11/30/17 20:26 Blood Pressure 109/66 11/30/17 18:00 O2 Sat by Pulse Oximetry (%) 98 11/30/17 20:26 Labs: CBC, BMP 11/30/17 11:30 11/30/17 11:30
[2017-11-30 20:51] LABS: URINE APPEARANCE CLEAR; URINE BILIRUBIN NEGATIVE (<2.0 mg/dL); URINE BLOOD NEGATIVE (NEGATIVE); URINE COLOR YELLOW; URINE GLUCOSE (UA) NEGATIVE (NEGATIVE); URINE KETONE NEGATIVE (NEGATIVE); URINE LEUK ESTERASE NEGATIVE (NEGATIVE); URINE NITRITE NEGATIVE (NEGATIVE); URINE PROTEIN NEGATIVE (NEGATIVE); URINE UROBILINOGEN NEGATIVE mg/dL (0.2-1.0)
[2017-11-30] MEDS: ALLOPURINOL 300 MG TABLET (FP) PO SCH (22:42)
[2017-11-30] MEDS: SENNOSIDES 8.6MG TABLET (FP) PO PRN (22:42)
[2017-11-30] MEDS: ALPRAZolam 0.25 MG TABLET PO PRN (22:43)
[2017-12-01] MEDS: DEXTROSE 5%-NORMAL SALINE 1,000 ML IV SCH ×2 (06:25→16:08)
[2017-12-01 07:49] LABS: HEMATOCRIT 32.8 % (32.4-45.2); LYMPH % 2.9 % (8-40); MCH 32.4 pg (25.7-33.7); MCHC 33.5 g/dl (32.0-36.0); MEAN CELL VOLUME 96.9 fl (80-96); MEAN PLT VOLUME 8.7 fl (7.5-11.1); MONO % 1.4 % (3.8-10.2); NEUT % 95.7 % (42.8-82.8); PLATELET COUNT 229 K/MM3 (134-434); RBC 3.39 M/mm3 (3.60-5.2); RDW 17.6 % (11.6-15.6); WHITE BLOOD COUNT 4.2 K/mm3 (4.0-10.0)
[2017-12-01 08:05] LABS: CHLORIDE 110 mmol/L (98-107); POTASSIUM 4.1 mmol/L (3.5-5.1); SODIUM 142 mmol/L (136-145)
[2017-12-01 08:18] LABS: ALBUMIN 3.2 g/dl (3.4-5.0); ALK PHOS 80 U/L (45-117); ANION GAP 8 (8-16); BILIRUBIN,TOTAL 0.2 mg/dL (0.2-1.0); BLOOD UREA NITROGEN 16 mg/dL (7-18); CALCIUM 8.6 mg/dL (8.5-10.1); CO2 24 mmol/L (21-32); CREATININE 0.5 mg/dL (0.55-1.02); GLUCOSE,RANDOM 138 mg/dL (74-106); LDH 137 U/L (84-246); SGOT/AST 20 U/L (15-37); SGPT/ALT 24 U/L (12-78); TOT PROT 5.8 g/dl (6.4-8.2)
[2017-12-01 08:20] LABS: URIC ACID 1.4 mg/dL (2.6-7.2)
[2017-12-01] MEDS ORDERED: SULFAMETHOXAZOLE/TRIMETHOPRIM 800MG/160MG D.S. TABLET PO SCH (10:00)
[2017-12-01] MEDS ORDERED: SULFAMETHOXAZOLE/TRIMETHOPRIM 800MG/160MG D.S. TABLET PO ONE (10:00)
[2017-12-01] MEDS: valACYclovir HCL 500 MG TABLET (FP) PO SCH (10:28)
[2017-12-01] MEDS: PANTOPRAZOLE 20 MG TABLET (FP) PO SCH (10:28)
[2017-12-01] MEDS: DOCUSATE SODIUM 100 MG CAPSULE (FP) PO SCH (10:28)
[2017-12-01] MEDS: predniSONE 20 MG TABLET (UD) PO SCH (11:51)
--- NOTE | 2017-12-01 11:53 | PN ---
Progress Note (short form) - Note Progress Note: ID Consult dictated B cell lymphoma on chemotherapy Recurrent UTIs/ Recent E. coli urosepsis Hx obstructive uropathy Presently asymptomatic without pyuria Observe off antibiotics If antibiotic prophylaxis for recurrent UTIs to continue on chemo would consider nitrofurantoin 1-2mg/kg po daily
--- NOTE | 2017-12-01 12:51 | CONS ---
DATE OF CONSULTATION: DATE OF DICTATION: 12/01/2017 The patient is a 57-year-old female who is evaluated for possible urinary tract infection. The patient has a history of recurrent urinary tract infections in the setting of obstructive uropathy secondary to urethral stricture. She has had a recent bout of E coli urosepsis, for which she required a course of IV ceftriaxone. She was recently treated for an E coli urinary tract infection as an outpatient with Levaquin. At the present time, she is admitted for the 5th cycle of her chemotherapy. She is well. She has no focal complaints. She denies any dysuria or hematuria. No complaints of suprapubic or flank pain. She denies any fever or chills. The patient reports long history of obstructive uropathy secondary to urethral stricture. She has been evaluated by several urologists in the past. She has had recurrent urinary tract infections, which have been successfully treated with antibiotic therapy. The patient has been on Bactrim prophylaxis. The patient reports she has been voiding well without urinary retention, no frequency or urgency, urine is clear in nature, no suprapubic or flank pain. Past medical history positive for large B-cell lymphoma, history of urethral stricture with obstructive uropathy, recurrent urinary tract infections. Allergies to PENICILLIN (rash in childhood). Medications include allopurinol, omeprazole, Zofran, Bactrim, Valtrex. SOCIAL HISTORY: Lives at home. She works as a graphic coordinator. Nonsmoker, nondrinker. SYSTEMS REVIEW: Neurologic: No loss of consciousness, seizure activity, or focal weakness. Cardiac: Negative chest pain or palpitations. Respiratory: Negative cough or sputum production. Gastrointestinal: Negative vomiting or diarrhea. Genitourinary: As per HPI. LABORATORY DATA: White count 4.2, neutrophils 95, lymphocytes 3, monocyte 1; hematocrit 32.8, platelet count 229. BUN 16, creatinine 0.5. Urinalysis: Negative leukocyte esterase. Total bilirubin 0.2, alkaline phosphatase 80, AST 20, uric acid 1.4, urine culture pending. PHYSICAL EXAMINATION: General: The patient is awake and alert, out of bed in chair, nontoxic appearing. Vital Signs: Temperature 98. Blood pressure 124/71. Pulse 81, regular. Respiration 20 per minute. Eyes: Sclerae anicteric. Heart Sounds: S1, S2. Lungs: Clear. Port Site: No tenderness or erythema. Abdomen: Soft. No suprapubic or flank tenderness. Extremities: Negative for edema. IMPRESSION: 1. B-cell lymphoma, on 5th cycle of chemotherapy. 2. Recurrent urinary tract infections. 3. History of recent Escherichia coli urosepsis. 4. History of obstructive uropathy secondary to urethral stricture. Patient presently asymptomatic without pyuria. Would observe off antibiotic therapy. If antibiotic prophylaxis for recurrent urinary tract infections to continue, would recommend nitrofurantoin 1 to 2 mg/kg daily (50 to 100 mg daily). Will discuss with Oncology. Thank you for the kind referral. WINNIE CONNELL M.D. [id number]
[2017-12-01] MEDS ORDERED: ONDANSETRON 4 MG/2 ML VIAL IVPB ONE (17:00)
[2017-12-01] MEDS ORDERED: [UNRECOGNIZED DRUG - OTHER] IV ONE (17:30)
[2017-12-01] MEDS ORDERED: ETOPOSIDE IV ONE (17:30)
[2017-12-01] MEDS ORDERED: VINCRISTINE SULFATE IV ONE (17:30)
[2017-12-01] MEDS ORDERED: DOXORUBICIN HCL IV ONE (17:30)
--- NOTE | 2017-12-01 17:52 | PN ---
Progress Note (short form) - Note Progress Note: Patient seen and examined Tolerating R-EPOCH No untoward effect to date Last Vital Signs Temp Pulse Resp BP Pulse Ox 97.6 F 88 20 129/85 98 12/01/17 14:53 12/01/17 14:53 12/01/17 14:53 12/01/17 14:53 12/01/17 09:00 HEENT: JACQUES, EOM Intact Oropharynx: No thrush, No mucositis Neck: Supple Nodes: Without adenopathy Cor: RSR, No murmurs, No gallops Lungs: Clear to P&A Abd: Soft, Normal bowel sounds, No organomegaly Ext:No significant edema Skin: No rashes, Integument intact CBC, BMP 12/01/17 06:00 12/01/17 06:00 Current Medications Generic Name Dose Route Start Last Admin Trade Name Freq PRN Reason Stop Dose Admin Acetaminophen 650 mg 11/30/17 11:53 12/01/17 10:28 Tylenol - PO 650 mg Q6H PRN Administration FEVER Allopurinol 300 mg 11/30/17 22:00 11/30/17 22:42 Zyloprim - PO 300 mg HS JOHN Administration Alprazolam 0.25 mg 11/30/17 11:53 11/30/17 22:43 Xanax - PO 0.25 mg Q8H PRN Administration ANXIETY Docusate Sodium 100 mg 12/01/17 10:00 12/01/17 10:28 Colace - PO 100 mg DAILY JOHN Administration IV Flush 10 ml 11/30/17 15:06 Chelle-Cath Flush IVPUSH 12/25/17 23:59 PRN PRN port flush Doxorubicin HCl 15 mg/ 1,011.75 mls @ 42.156 mls/hr 12/01/17 17:30 12/01/17 17:32 Etoposide 75 mg/ Vincristine IV 12/02/17 17:29 42.156 mls/hr Sulfate 0.5 mg/ Sodium ONCE ONE Administration Chloride Dextrose/Sodium Chloride 1,000 mls @ 42 mls/hr 11/30/17 15:00 12/01/17 16:08 D5-Ns - IV Not Given ASDIR JOHN Doxorubicin HCl 15 mg/ 1,011.75 mls @ 42.156 mls/hr 12/02/17 17:30 Etoposide 75 mg/ Vincristine IV 12/03/17 17:29 Sulfate 0.5 mg/ Sodium ONCE ONE Chloride Ondansetron HCl 8 mg 12/02/17 17:00 Zofran Injection IVPB 12/02/17 17:01 ONCE ONE Pantoprazole Sodium 20 mg 12/01/17 10:00 12/01/17 10:28 Protonix - PO 20 mg DAILY JOHN Administration Prednisone 90 mg 12/01/17 10:00 12/01/17 11:51 Deltasone - PO 90 mg DAILY JOHN Administration Senna 2 tab 11/30/17 11:53 11/30/17 22:42 Senna - PO 2 tab HS PRN Administration CONSTIPATION Trimethoprim/Sulfamethoxazole 1 each 12/02/17 10:00 Bactrim Ds - PO MoWeFr@1000 JOHN Valacyclovir HCl 500 mg 12/01/17 10:00 12/01/17 10:28 Valtrex - PO 500 mg DAILY JOHN Administration Impression: Primary mediastinal "B" cell lymphoma R-EPOCH chemotherapy Plan: Continue with therapy
[2017-12-01] MEDS ORDERED: PT OWN MED DRAWER 7, Y5N ONE (19:25)
[2017-12-01] MEDS: ALPRAZolam 0.25 MG TABLET PO PRN (21:32)
[2017-12-01] MEDS: ALLOPURINOL 300 MG TABLET (FP) PO SCH (21:32)
[2017-12-02 07:49] LABS: BASO % 0.2 % (0-2.0); HEMATOCRIT 31.3 % (32.4-45.2); HEMOGLOBIN 10.5 GM/dL (10.7-15.3); LYMPH % 4.3 % (8-40); MCH 32.6 pg (25.7-33.7); MCHC 33.5 g/dl (32.0-36.0); MEAN CELL VOLUME 97.3 fl (80-96); MEAN PLT VOLUME 8.6 fl (7.5-11.1); MONO % 10.4 % (3.8-10.2); NEUT % 85.1 % (42.8-82.8); PLATELET COUNT 224 K/MM3 (134-434); RBC 3.22 M/mm3 (3.60-5.2); RDW 17.4 % (11.6-15.6); WHITE BLOOD COUNT 5.5 K/mm3 (4.0-10.0)
[2017-12-02] MEDS ORDERED: FUROSEMIDE 20 MG TABLET (FP) PO ONE (08:00)
[2017-12-02 08:29] LABS: ALBUMIN 3.3 g/dl (3.4-5.0); ANION GAP 7 (8-16); BLOOD UREA NITROGEN 13 mg/dL (7-18); CALCIUM 9.2 mg/dL (8.5-10.1); CHLORIDE 113 mmol/L (98-107); CO2 26 mmol/L (21-32); CREATININE 0.4 mg/dL (0.55-1.02); GLUCOSE,RANDOM 86 mg/dL (74-106); LDH 115 U/L (84-246); POTASSIUM 3.7 mmol/L (3.5-5.1); SGOT/AST 16 U/L (15-37); SGPT/ALT 22 U/L (12-78); SODIUM 146 mmol/L (136-145); URIC ACID 1.6 mg/dL (2.6-7.2)
[2017-12-02 08:31] LABS: ALK PHOS 67 U/L (45-117); BILIRUBIN,TOTAL 0.3 mg/dL (0.2-1.0); TOT PROT 5.7 g/dl (6.4-8.2)
[2017-12-02] MEDS: predniSONE 20 MG TABLET (UD) PO SCH (09:24)
[2017-12-02] MEDS: valACYclovir HCL 500 MG TABLET (FP) PO SCH (09:25)
[2017-12-02] MEDS: DOCUSATE SODIUM 100 MG CAPSULE (FP) PO SCH (09:25)
[2017-12-02] MEDS: SULFAMETHOXAZOLE/TRIMETHOPRIM 800MG/160MG D.S. TABLET PO SCH (09:25)
[2017-12-02] MEDS: PANTOPRAZOLE 20 MG TABLET (FP) PO SCH (09:25)
--- NOTE | 2017-12-02 11:29 | PN ---
<Milton Rivera - Last Filed: 12/02/17 11:29> Progress Note, Physician History of Present Illness: Heme/Onc Progress Note No complaint. - Current Medication List Current Medications: Active Medications Acetaminophen (Tylenol -) 650 mg PO Q6H PRN PRN Reason: FEVER Last Admin: 12/01/17 10:28 Dose: 650 mg Allopurinol (Zyloprim -) 300 mg PO HS JOHN Last Admin: 12/01/17 21:32 Dose: 300 mg Alprazolam (Xanax -) 0.25 mg PO Q8H PRN PRN Reason: ANXIETY Last Admin: 12/01/17 21:32 Dose: 0.25 mg Docusate Sodium (Colace -) 100 mg PO DAILY [facility] Last Admin: 12/02/17 09:25 Dose: 100 mg IV Flush (Chelle-Cath Flush) 10 ml IVPUSH PRN PRN PRN Reason: port flush Stop: 12/25/17 23:59 Doxorubicin HCl 15 mg/Etoposide 75 mg/ Vincristine Sulfate 0.5 mg/ Sodium Chloride 1,011.75 mls @ 42.156 mls/hr IV ONCE ONE Stop: 12/02/17 17:29 Last Admin: 12/01/17 17:32 Dose: 42.156 mls/hr Dextrose/Sodium Chloride (D5-Ns -) 1,000 mls @ 42 mls/hr IV ASDIR [facility] Last Admin: 12/01/17 16:08 Dose: Not Given Doxorubicin HCl 15 mg/Etoposide 75 mg/ Vincristine Sulfate 0.5 mg/ Sodium Chloride 1,011.75 mls @ 42.156 mls/hr IV ONCE ONE Stop: 12/03/17 17:29 Doxorubicin HCl 15 mg/Etoposide 75 mg/ Vincristine Sulfate 0.5 mg/ Sodium Chloride 1,011.75 mls @ 42.156 mls/hr IV ONCE ONE Stop: 12/04/17 17:29 Ondansetron HCl (Zofran Injection) 8 mg IVPB ONCE ONE Stop: 12/02/17 17:01 Ondansetron HCl (Zofran Injection) 8 mg IVPB ONCE ONE Stop: 12/03/17 17:01 Pantoprazole Sodium (Protonix -) 20 mg PO DAILY [facility] Last Admin: 12/02/17 09:25 Dose: 20 mg Prednisone (Deltasone -) 90 mg PO DAILY [facility] Last Admin: 12/02/17 09:24 Dose: 90 mg Senna (Senna -) 2 tab PO HS PRN PRN Reason: CONSTIPATION Last Admin: 11/30/17 22:42 Dose: 2 tab Trimethoprim/Sulfamethoxazole (Bactrim Ds -) 1 each PO MoWeFr@1000 [facility] Last Admin: 12/02/17 09:25 Dose: 1 each Valacyclovir HCl (Valtrex -) 500 mg PO DAILY [facility] Last Admin: 12/02/17 09:25 Dose: 500 mg - Objective Vital Signs: Vital Signs Temperature 97.7 F 12/02/17 09:00 Pulse Rate 77 12/02/17 09:00 Respiratory Rate 18 12/02/17 09:00 Blood Pressure 128/81 12/02/17 09:00 O2 Sat by Pulse Oximetry (%) 98 12/01/17 20:30 Constitutional: Yes: No Distress, Calm Eyes: Yes: Conjunctiva Clear, PERRL HENT: Yes: Atraumatic, Normocephalic Neck: Yes: Trachea Midline Cardiovascular: Yes: Regular Rate and Rhythm Respiratory: Yes: CTA Bilaterally Gastrointestinal: Yes: Normal Bowel Sounds, Soft. No: Hepatomegaly, Tenderness Musculoskeletal: No: Back Pain Extremities: No: Cyanosis, Erythema Edema: No Peripheral Pulses WNL: Yes Labs: CBC, BMP 12/02/17 06:00 12/02/17 06:00 Impression/Plan Impression/Plan: 57 yo F admitted for chemotherapy. # B cell lymphoma - Tolerating R-EPOCH, continue infusion therapy C5 D3 Visit type - Emergency Visit Emergency Visit: No - New Patient This patient is new to me today: No - Critical Care Critical Care patient: No - Discharge Referral Referred to [facility] Med P.C[facility] No <Yessi Forrest - Last Filed: 12/02/17 18:37> Progress Note, Physician - Current Medication List Current Medications: Active Medications Acetaminophen (Tylenol -) 650 mg PO Q6H PRN PRN Reason: FEVER Last Admin: 12/01/17 10:28 Dose: 650 mg Allopurinol (Zyloprim -) 300 mg PO HS [facility] Last Admin: 12/01/17 21:32 Dose: 300 mg Alprazolam (Xanax -) 0.25 mg PO Q8H PRN PRN Reason: ANXIETY Last Admin: 12/01/17 21:32 Dose: 0.25 mg Docusate Sodium (Colace -) 100 mg PO DAILY [facility] Last Admin: 12/02/17 09:25 Dose: 100 mg IV Flush (Chelle-Cath Flush) 10 ml IVPUSH PRN PRN PRN Reason: port flush Stop: 12/25/17 23:59 Dextrose/Sodium Chloride (D5-Ns -) 1,000 mls @ 42 mls/hr IV ASDIR [facility] Last Admin: 12/01/17 16:08 Dose: Not Given Doxorubicin HCl 15 mg/Etoposide 75 mg/ Vincristine Sulfate 0.5 mg/ Sodium Chloride 1,011.75 mls @ 42.156 mls/hr IV ONCE ONE Stop: 12/03/17 17:29 Last Admin: 12/02/17 18:33 Dose: 42.156 mls/hr Doxorubicin HCl 15 mg/Etoposide 75 mg/ Vincristine Sulfate 0.5 mg/ Sodium Chloride 1,011.75 mls @ 42.156 mls/hr IV ONCE ONE Stop: 12/04/17 17:29 Ondansetron HCl (Zofran Injection) 8 mg IVPB ONCE ONE Stop: 12/03/17 17:01 Pantoprazole Sodium (Protonix -) 20 mg PO DAILY [facility] Last Admin: 12/02/17 09:25 Dose: 20 mg Prednisone (Deltasone -) 90 mg PO DAILY [facility] Last Admin: 12/02/17 09:24 Dose: 90 mg Senna (Senna -) 2 tab PO HS PRN PRN Reason: CONSTIPATION Last Admin: 11/30/17 22:42 Dose: 2 tab Trimethoprim/Sulfamethoxazole (Bactrim Ds -) 1 each PO MoWeFr@1000 [facility] Last Admin: 12/02/17 09:25 Dose: 1 each Valacyclovir HCl (Valtrex -) 500 mg PO DAILY [facility] Last Admin: 12/02/17 09:25 Dose: 500 mg - Objective Vital Signs: Vital Signs Temperature 98.0 F 12/02/17 17:41 Pulse Rate 71 12/02/17 17:41 Respiratory Rate 18 12/02/17 17:41 Blood Pressure 117/75 12/02/17 17:41 O2 Sat by Pulse Oximetry (%) 98 12/02/17 09:00 Labs: CBC, BMP 12/02/17 06:00 12/02/17 06:00
--- NOTE | 2017-12-02 15:55 | PN ---
Progress Note (short form) - Note Progress Note: seen and examined feels better. HEENT: JACQUES, EOM Intact Oropharynx: No thrush, No mucositis Neck: Supple Nodes: Without adenopathy Cor: RSR, No murmurs, No gallops Lungs: Clear to P&A Abd: Soft, Normal bowel sounds, No organomegaly Ext:No significant edema Skin: No rashes, Integument intact Last Vital Signs Temp Pulse Resp BP Pulse Ox 97.8 F 69 18 142/74 98 12/02/17 15:01 12/02/17 15:01 12/02/17 15:01 12/02/17 15:03 12/01/17 20:30 CBC, BMP 12/02/17 06:00 12/02/17 06:00 Current Medications Generic Name Dose Route Start Last Admin Trade Name Freq PRN Reason Stop Dose Admin Acetaminophen 650 mg 11/30/17 11:53 12/01/17 10:28 Tylenol - PO 650 mg Q6H PRN Administration FEVER Allopurinol 300 mg 11/30/17 22:00 12/01/17 21:32 Zyloprim - PO 300 mg HS JOHN Administration Alprazolam 0.25 mg 11/30/17 11:53 12/01/17 21:32 Xanax - PO 0.25 mg Q8H PRN Administration ANXIETY Docusate Sodium 100 mg 12/01/17 10:00 12/02/17 09:25 Colace - PO 100 mg DAILY JOHN Administration IV Flush 10 ml 11/30/17 15:06 Chelle-Cath Flush IVPUSH 12/25/17 23:59 PRN PRN port flush Doxorubicin HCl 15 mg/ 1,011.75 mls @ 42.156 mls/hr 12/01/17 17:30 12/01/17 17:32 Etoposide 75 mg/ Vincristine IV 12/02/17 17:29 42.156 mls/hr Sulfate 0.5 mg/ Sodium ONCE ONE Administration Chloride Dextrose/Sodium Chloride 1,000 mls @ 42 mls/hr 11/30/17 15:00 12/01/17 16:08 D5-Ns - IV Not Given ASDIR JOHN Doxorubicin HCl 15 mg/ 1,011.75 mls @ 42.156 mls/hr 12/02/17 17:30 Etoposide 75 mg/ Vincristine IV 12/03/17 17:29 Sulfate 0.5 mg/ Sodium ONCE ONE Chloride Doxorubicin HCl 15 mg/ 1,011.75 mls @ 42.156 mls/hr 12/03/17 17:30 Etoposide 75 mg/ Vincristine IV 12/04/17 17:29 Sulfate 0.5 mg/ Sodium ONCE ONE Chloride Ondansetron HCl 8 mg 12/02/17 17:00 Zofran Injection IVPB 12/02/17 17:01 ONCE ONE Ondansetron HCl 8 mg 12/03/17 17:00 Zofran Injection IVPB 12/03/17 17:01 ONCE ONE Pantoprazole Sodium 20 mg 12/01/17 10:00 12/02/17 09:25 Protonix - PO 20 mg DAILY JOHN Administration Prednisone 90 mg 12/01/17 10:00 12/02/17 09:24 Deltasone - PO 90 mg DAILY JOHN Administration Senna 2 tab 11/30/17 11:53 11/30/17 22:42 Senna - PO 2 tab HS PRN Administration CONSTIPATION Trimethoprim/Sulfamethoxazole 1 each 12/02/17 10:00 12/02/17 09:25 Bactrim Ds - PO 1 each MoWeFr@1000 JOHN Administration Valacyclovir HCl 500 mg 12/01/17 10:00 12/02/17 09:25 Valtrex - PO 500 mg DAILY JOHN Administration Primary mediastinal "B" cell lymphoma R-EPOCH chemotherapy Plan: Continue with therapy c/w OI ppx. Anti-bacterial to be added upon dc lasix prn
[2017-12-02] MEDS ORDERED: ONDANSETRON 4 MG/2 ML VIAL IVPB ONE (17:00)
[2017-12-02] MEDS ORDERED: VINCRISTINE SULFATE IV ONE (17:30)
[2017-12-02] MEDS ORDERED: DOXORUBICIN HCL IV ONE (17:30)
[2017-12-02] MEDS ORDERED: ETOPOSIDE IV ONE (17:30)
[2017-12-02] MEDS ORDERED: [UNRECOGNIZED DRUG - OTHER] IV ONE (17:30)
[2017-12-02] MEDS ORDERED: MAG HYDROX/AL HYDROX/SIMETH 30 ML UNIT-DOSE CUP PO ONE (21:50)
[2017-12-02] MEDS ORDERED: MAG HYDROX/AL HYDROX/SIMETH 30 ML UNIT-DOSE CUP PO PRN (21:50)
[2017-12-02] MEDS: SENNOSIDES 8.6MG TABLET (FP) PO PRN (21:55)
[2017-12-02] MEDS: ALLOPURINOL 300 MG TABLET (FP) PO SCH (21:56)
[2017-12-02] MEDS: ALPRAZolam 0.25 MG TABLET PO PRN (21:56)
[2017-12-03] MEDS: DOCUSATE SODIUM 100 MG CAPSULE (FP) PO SCH ×3 (06:02→21:51)
[2017-12-03] MEDS: PORTA CATH FLUSH 10 ML IVPUSH PRN (06:14)
[2017-12-03] MEDS: PANTOPRAZOLE 20 MG TABLET (FP) PO SCH (10:08)
[2017-12-03] MEDS: DEXTROSE 5%-NORMAL SALINE 1,000 ML IV SCH ×2 (10:08→16:10)
[2017-12-03] MEDS: predniSONE 20 MG TABLET (UD) PO SCH (10:09)
[2017-12-03] MEDS: valACYclovir HCL 500 MG TABLET (FP) PO SCH (10:09)
--- NOTE | 2017-12-03 14:22 | PN ---
Progress Note (short form) - Note Progress Note: seen and examined feels better. HEENT: JACQUES, EOM Intact Oropharynx: No thrush, No mucositis Neck: Supple Nodes: Without adenopathy Cor: RSR, No murmurs, No gallops Lungs: Clear to P&A Abd: Soft, Normal bowel sounds, No organomegaly Ext:No significant edema Skin: No rashes, Integument intact Last Vital Signs Last Vital Signs Temp Pulse Resp BP Pulse Ox 97.6 F 92 H 18 125/88 100 12/03/17 09:00 12/03/17 09:00 12/03/17 09:00 12/03/17 09:00 12/03/17 09:00 CBC, BMP 12/02/17 06:00 12/02/17 06:00 Current Medications Generic Name Dose Route Start Last Admin Trade Name Freq PRN Reason Stop Dose Admin Acetaminophen 650 mg 11/30/17 11:53 12/01/17 10:28 Tylenol - PO 650 mg Q6H PRN Administration FEVER Al Hydroxide/Mg Hydroxide 30 ml 12/02/17 21:50 Mylanta Oral Suspension - PO Q6H PRN DYSPEPSIA Allopurinol 300 mg 11/30/17 22:00 12/02/17 21:56 Zyloprim - PO 300 mg HS JOHN Administration Docusate Sodium 100 mg 12/03/17 06:00 12/03/17 13:11 Colace - PO 100 mg TID JOHN Administration IV Flush 10 ml 11/30/17 15:06 12/03/17 06:14 Chelle-Cath Flush IVPUSH 12/25/17 23:59 10 ml PRN PRN Administration port flush Dextrose/Sodium Chloride 1,000 mls @ 42 mls/hr 11/30/17 15:00 12/03/17 10:08 D5-Ns - IV Not Given ASDIR JOHN Doxorubicin HCl 15 mg/ 1,011.75 mls @ 42.156 mls/hr 12/02/17 17:30 12/02/17 18:33 Etoposide 75 mg/ Vincristine IV 12/03/17 17:29 42.156 mls/hr Sulfate 0.5 mg/ Sodium ONCE ONE Administration Chloride Doxorubicin HCl 15 mg/ 1,011.75 mls @ 42.156 mls/hr 04/05/18 17:30 Etoposide 75 mg/ Vincristine IV 12/04/17 17:29 Sulfate 0.5 mg/ Sodium ONCE ONE Chloride Ondansetron HCl 8 mg 12/03/17 17:00 Zofran Injection IVPB 12/03/17 17:01 ONCE ONE Pantoprazole Sodium 20 mg 12/01/17 10:00 12/03/17 10:08 Protonix - PO 20 mg DAILY JOHN Administration Prednisone 90 mg 12/01/17 10:00 12/03/17 10:09 Deltasone - PO 90 mg DAILY JOHN Administration Senna 2 tab 11/30/17 11:53 12/02/17 21:55 Senna - PO 2 tab HS PRN Administration CONSTIPATION Trimethoprim/Sulfamethoxazole 1 each 12/02/17 10:00 12/02/17 09:25 Bactrim Ds - PO 1 each MoWeFr@1000 JOHN Administration Valacyclovir HCl 500 mg 12/01/17 10:00 12/03/17 10:09 Valtrex - PO 500 mg DAILY JOHN Administration Primary mediastinal "B" cell lymphoma R-EPOCH chemotherapy Plan: Continue with therapy c/w OI ppx. Anti-bacterial to be added upon dc lasix prn
[2017-12-03] MEDS ORDERED: ALPRAZolam 0.25 MG TABLET PO PRN (16:44)
[2017-12-03] MEDS ORDERED: ONDANSETRON 4 MG/2 ML VIAL IVPB ONE (17:00)
[2017-12-03] MEDS ORDERED: DOXORUBICIN HCL IV ONE (17:30)
[2017-12-03] MEDS ORDERED: VINCRISTINE SULFATE IV ONE (17:30)
[2017-12-03] MEDS ORDERED: ETOPOSIDE IV ONE (17:30)
[2017-12-03] MEDS ORDERED: [UNRECOGNIZED DRUG - OTHER] IV ONE (17:30)
[2017-12-03] MEDS: SENNOSIDES 8.6MG TABLET (FP) PO PRN (21:51)
[2017-12-03] MEDS: ALLOPURINOL 300 MG TABLET (FP) PO SCH (21:51)
[2017-12-04] MEDS: DOCUSATE SODIUM 100 MG CAPSULE (FP) PO SCH ×2 (06:16→13:51)
[2017-12-04 07:52] LABS: BASO % 0.3 % (0-2.0); EOS % 0.5 % (0-4.5); HEMOGLOBIN 10.8 GM/dL (10.7-15.3); LYMPH % 11.6 % (8-40); MCH 32.7 pg (25.7-33.7); MCHC 33.9 g/dl (32.0-36.0); MEAN CELL VOLUME 96.6 fl (80-96); MEAN PLT VOLUME 8.1 fl (7.5-11.1); MONO % 8.6 % (3.8-10.2); PLATELET COUNT 213 K/MM3 (134-434); RBC 3.31 M/mm3 (3.60-5.2); RDW 16.4 % (11.6-15.6); WHITE BLOOD COUNT 3.1 K/mm3 (4.0-10.0)
[2017-12-04 08:30] LABS: BLOOD UREA NITROGEN 16 mg/dL (7-18); CHLORIDE 109 mmol/L (98-107); POTASSIUM 3.7 mmol/L (3.5-5.1); SODIUM 143 mmol/L (136-145)
[2017-12-04 08:33] LABS: ALK PHOS 61 U/L (45-117); ANION GAP 6 (8-16); BILIRUBIN,TOTAL 0.5 mg/dL (0.2-1.0); CALCIUM 8.8 mg/dL (8.5-10.1); CO2 28 mmol/L (21-32); CREATININE 0.5 mg/dL (0.55-1.02); GLUCOSE,RANDOM 65 mg/dL (74-106); SGOT/AST 19 U/L (15-37); SGPT/ALT 28 U/L (12-78); TOT PROT 5.4 g/dl (6.4-8.2)
[2017-12-04] MEDS ORDERED: FUROSEMIDE 20 MG TABLET (FP) PO ONE (09:02)
--- NOTE | 2017-12-04 09:02 | PN ---
Progress Note (short form) - Note Progress Note: Patient seen and examined Tolerating chemotherapy to date ROS - essentially non contributory with minimal nausea, no CONCEPCION, diplopia, epistaxis, dysphagia, urinary symptoms, bone pain or neuropathy Last Vital Signs Temp Pulse Resp BP Pulse Ox 98 F 58 L 20 130/74 98 12/04/17 05:58 12/04/17 05:58 12/04/17 05:58 12/04/17 05:58 12/03/17 20:49 HEENT: JACQUES, EOM Intact Oropharynx: No thrush, No mucositis Neck: Supple Nodes- without adenopathy Cor: RSR, No murmur, No gallops Lungs: Clear to P&A Abd: Soft, Normal bowel sounds, No organomegaly Ext:No significant edema Skin: No rashes, Integument intact CBC, BMP 12/04/17 06:20 12/04/17 06:20 Current Medications Generic Name Dose Route Start Last Admin Trade Name Freq PRN Reason Stop Dose Admin Acetaminophen 650 mg 11/30/17 11:53 12/01/17 10:28 Tylenol - PO 650 mg Q6H PRN Administration FEVER Al Hydroxide/Mg Hydroxide 30 ml 12/02/17 21:50 Mylanta Oral Suspension - PO Q6H PRN DYSPEPSIA Allopurinol 300 mg 11/30/17 22:00 12/03/17 21:51 Zyloprim - PO 300 mg HS JOHN Administration Alprazolam 0.25 mg 12/03/17 16:44 12/03/17 21:51 Xanax - PO 0.25 mg Q8H PRN Administration ANXIETY Docusate Sodium 100 mg 12/03/17 06:00 12/04/17 06:16 Colace - PO 100 mg TID JOHN Administration IV Flush 10 ml 11/30/17 15:06 12/03/17 06:14 Chelle-Cath Flush IVPUSH 12/25/17 23:59 10 ml PRN PRN Administration port flush Dextrose/Sodium Chloride 1,000 mls @ 42 mls/hr 11/30/17 15:00 12/03/17 16:10 D5-Ns - IV 42 mls/hr ASDIR JOHN Administration Doxorubicin HCl 15 mg/ 1,011.75 mls @ 42.156 mls/hr 12/03/17 17:30 12/03/17 18:23 Etoposide 75 mg/ Vincristine IV 12/04/17 17:29 42.156 mls/hr Sulfate 0.5 mg/ Sodium ONCE ONE Administration Chloride Cyclophosphamide 1,120 mg/ 306 mls @ 306 mls/hr 12/04/17 18:30 Sodium Chloride IVPB 12/04/17 19:29 ONCE ONE Ondansetron HCl 12 mg 12/04/17 18:00 Zofran Injection IVPB 12/04/17 18:01 ONCE ONE Pantoprazole Sodium 20 mg 12/01/17 10:00 12/03/17 10:08 Protonix - PO 20 mg DAILY JOHN Administration Prednisone 90 mg 12/01/17 10:00 12/03/17 10:09 Deltasone - PO 90 mg DAILY JOHN Administration Senna 2 tab 11/30/17 11:53 12/03/17 21:51 Senna - PO 2 tab HS PRN Administration CONSTIPATION Trimethoprim/Sulfamethoxazole 1 each 12/02/17 10:00 12/02/17 09:25 Bactrim Ds - PO 1 each MoWeFr@1000 JOHN Administration Valacyclovir HCl 500 mg 12/01/17 10:00 12/03/17 10:09 Valtrex - PO 500 mg DAILY JOHN Administration Impression Mediastinal B cell lymphoma Chemotherapy Early Neutropenia developing Plan Neulasta- 12/07 Complete chemotherpay Low dose lasix.
[2017-12-04] MEDS ORDERED: POTASSIUM CHLORIDE TABS 20 MEQ TABLET.ER (FP) PO SCH (10:00)
[2017-12-04] MEDS: valACYclovir HCL 500 MG TABLET (FP) PO SCH (10:00)
[2017-12-04] MEDS: PANTOPRAZOLE 20 MG TABLET (FP) PO SCH (10:00)
[2017-12-04] MEDS: predniSONE 20 MG TABLET (UD) PO SCH (10:00)
[2017-12-04] MEDS: SULFAMETHOXAZOLE/TRIMETHOPRIM 800MG/160MG D.S. TABLET PO SCH (10:01)
--- NOTE | 2017-12-04 13:28 | DS ---
Physical Examination Vital Signs: Vital Signs Temperature 98 F 12/04/17 05:58 Pulse Rate 58 L 12/04/17 05:58 Respiratory Rate 20 12/04/17 05:58 Blood Pressure 130/74 12/04/17 05:58 O2 Sat by Pulse Oximetry (%) 98 12/03/17 20:49 Constitutional: Yes: Well Nourished, No Distress, Calm HENT: Yes: Atraumatic, Normocephalic Neck: Yes: Supple Cardiovascular: Yes: Regular Rate and Rhythm Respiratory: Yes: Regular, CTA Bilaterally Gastrointestinal: Yes: Normal Bowel Sounds, Soft Labs: CBC, BMP 12/04/17 06:20 12/04/17 06:20 Discharge Summary Reason For Visit: MEDIASTINAL(THYMIC)LARGE B-CELL LYMPHOMA,[facility] Hospital Course: 57 y/o patient with lymphoma here for C5 EPOCH. CT 11/15 shows resolution of mass. tolerated chemo well for d/c on 12/04 with office f/u 12/07 for Neulasta Pt to be discharged on OI ppx Condition: Good - Instructions Disposition: HOME - Home Medications Comprehensive Discharge Medication List: Ambulatory Orders Allopurinol 300 mg PO DAILY 09/21/17 Omeprazole 20 mg PO DAILY 09/21/17 Ondansetron HCl [Zofran] 8 mg PO DAILY 09/21/17 Polyethylene Glycol 3350 [Miralax (For Daily Use) -] 17 gm PO DAILY 09/21/17 Sennosides/Docusate Sodium [Senna-Docusate Sodium Tablet] 1 each PO DAILY Sulfamethoxazole/Trimethoprim [Bactrim Ds -] 1 tab PO DAILY 09/21/17 Valacyclovir HCl [Valtrex] 500 mg PO DAILY 09/21/17
[2017-12-04] MEDS ORDERED: ONDANSETRON 4 MG/2 ML VIAL IVPB ONE (18:00)
[2017-12-04] MEDS ORDERED: CYCLOPHOSPHAMIDE IVPB ONE (18:30)
[2017-12-04] MEDS ORDERED: SODIUM CHLORIDE IVPB ONE (18:30)
[2017-12-04] MEDS: DEXTROSE 5%-NORMAL SALINE 1,000 ML IV SCH (18:47)
[2017-12-04] MEDS: PORTA CATH FLUSH 10 ML IVPUSH PRN (18:47)
[2017-12-04 19:08] VITALS: BP 114/82; PULSE 68; TEMP 97.8
== END 2017-12-04 19:00 | disposition home or self-care (01) | DRG 693 ==
LOC: J7W 10:28
PROVIDERS: ADMIT Internal Medicine Hematology & Oncology; ATTEND Internal Medicine Hematology & Oncology
DX: Z51.12 Encounter for antineoplastic immunotherapy (principal); C85.20 Mediastinal (thymic) large B-cell lymphoma, unspecified site; D70.9 Neutropenia, unspecified; B95.8 Unspecified staphylococcus as the cause of diseases classified elsewhere; N13.9 Obstructive and reflux uropathy, unspecified; Z88.0 Allergy status to penicillin; Z87.440 Personal history of urinary (tract) infections
CPT/HCPCS: 36415; 80048; 80053; 80076; 81003; 83615; 83735; 84550; 85025; 85651; 87086; 87186; 96361; 96367; 96375; 96413; 96415; 96417; J1100; J1453; J2405; J7030; J9070; J9181; J9310; J9370

== ENCOUNTER 2017-12-07 07:13 | Day surgery (SDC) | payer OTHER ==
[2017-12-07] MEDS ORDERED: DEXAMETHASONE INJECTION 20 MG, DIPHENHYDRAMINE 50 MG, RANITIDINE INJECTION 50 MG in SOD... IVPB ONE (08:00)
[2017-12-07] MEDS ORDERED: SODIUM CHLORIDE 1,000 ML IV ONE (08:00)
[2017-12-07] MEDS ORDERED: PEGFILGRASTIM 6 MG/0.6 ML DISP.SYRIN SQ ONE (08:00)
[2017-12-07] MEDS ORDERED: PALONOSETRON HCL 0.25 MG/5 ML VIAL IVPUSH ONE (08:00)
[2017-12-07] MEDS ORDERED: PACLITAXEL 126 MG in SODIUM CHLORIDE 250 ML IVPB ONE (08:30)
[2017-12-07] MEDS ORDERED: CARBOplatin 155 MG in SODIUM CHLORIDE 250 ML IVPB ONE (09:30)
[2017-12-07 10:27] LABS: BASO % 0.5 % (0-2.0); EOS % 9.5 % (0-4.5); HEMATOCRIT 39.9 % (32.4-45.2); HEMOGLOBIN 13.7 GM/dL (10.7-15.3); LYMPH % 3.2 % (8-40); MCH 32.9 pg (25.7-33.7); MCHC 34.2 g/dl (32.0-36.0); MEAN CELL VOLUME 96.1 fl (80-96); MEAN PLT VOLUME 8.5 fl (7.5-11.1); MONO % 1.1 % (3.8-10.2); NEUT % 85.7 % (42.8-82.8); PLATELET COUNT 275 K/MM3 (134-434); RBC 4.15 M/mm3 (3.60-5.2); RDW 15.3 % (11.6-15.6); WHITE BLOOD COUNT 7.2 K/mm3 (4.0-10.0)
[2017-12-07 10:31] LABS: URINE APPEARANCE SLCLOUDY; URINE BILIRUBIN NEGATIVE (<2.0 mg/dL); URINE BLOOD NEGATIVE (NEGATIVE); URINE COLOR LTYELLOW; URINE GLUCOSE (UA) NEGATIVE (NEGATIVE); URINE KETONE NEGATIVE (NEGATIVE); URINE NITRITE NEGATIVE (NEGATIVE); URINE PROTEIN NEGATIVE (NEGATIVE); URINE UROBILINOGEN NEGATIVE mg/dL (0.2-1.0)
[2017-12-07 10:34] LABS: URINE LEUK ESTERASE 3+ (NEGATIVE)
[2017-12-07 10:36] LABS: EPI CELLS RARE /HPF (FEW)
[2017-12-07 10:49] LABS: ALBUMIN 3.9 g/dl (3.4-5.0); ANION GAP 9 (8-16); BILIRUBIN,DIRECT < 0.2 mg/dL (0.0-0.2); BILIRUBIN,TOTAL 0.4 mg/dL (0.2-1.0); BLOOD UREA NITROGEN 21 mg/dL (7-18); CALCIUM 9.7 mg/dL (8.5-10.1); CHLORIDE 103 mmol/L (98-107); CO2 28 mmol/L (21-32); CREATININE 0.8 mg/dL (0.55-1.02); GLUCOSE,RANDOM 72 mg/dL (74-106); MAGNESIUM 2.3 mg/dL (1.8-2.4); SGOT/AST 16 U/L (15-37); SGPT/ALT 29 U/L (12-78); SODIUM 140 mmol/L (136-145)
[2017-12-07 10:51] LABS: ALK PHOS 89 U/L (45-117); TOT PROT 7.1 g/dl (6.4-8.2)
[2017-12-07 14:37] VITALS: BP 102/56; PULSE 93; TEMP 97.7
== END 2017-12-07 10:30 | disposition home or self-care (01) ==
LOC: JONCCHEMO 07:13 → J7W 10:07 → JONCCHEMO 10:30
PROVIDERS: ATTEND Internal Medicine Hematology & Oncology
PROC: 3E013GC Introduction of Other Therapeutic Substance into Subcutaneous Tissue, Percutaneous Approach (ICD-10-PCS; principal; 2017-12-07)
DX: C85.20 Mediastinal (thymic) large B-cell lymphoma, unspecified site (principal); D70.9 Neutropenia, unspecified; Z76.89 Persons encountering health services in other specified circumstances
CPT/HCPCS: 36415; 80053; 80076; 81003; 81015; 83735; 85025; 87086; 96372; J2505

== ENCOUNTER 2017-12-21 08:09 | Inpatient (IN) | payer OTHER ==
[2017-12-21 10:10] LABS: BASO % 0.8 % (0-2.0); EOS % 0.3 % (0-4.5); HEMATOCRIT 35.8 % (32.4-45.2); HEMOGLOBIN 12.1 GM/dL (10.7-15.3); LYMPH % 4.4 % (8-40); MCH 32.6 pg (25.7-33.7); MCHC 33.8 g/dl (32.0-36.0); MEAN CELL VOLUME 96.4 fl (80-96); MEAN PLT VOLUME 8.1 fl (7.5-11.1); MONO % 8.3 % (3.8-10.2); NEUT % 86.2 % (42.8-82.8); PLATELET COUNT 298 K/MM3 (134-434); RBC 3.72 M/mm3 (3.60-5.2); RDW 15.8 % (11.6-15.6); WHITE BLOOD COUNT 7.2 K/mm3 (4.0-10.0)
[2017-12-21 10:11] LABS: URINE APPEARANCE SLCLOUDY; URINE BILIRUBIN NEGATIVE (<2.0 mg/dL); URINE COLOR YELLOW; URINE GLUCOSE (UA) NEGATIVE (NEGATIVE); URINE KETONE NEGATIVE (NEGATIVE); URINE NITRITE NEGATIVE (NEGATIVE); URINE PROTEIN NEGATIVE (NEGATIVE); URINE UROBILINOGEN NEGATIVE mg/dL (0.2-1.0)
[2017-12-21] MEDS ORDERED: SULFAMETHOXAZOLE/TRIMETHOPRIM 800MG/160MG D.S. TABLET PO SCH (10:15)
[2017-12-21 10:19] LABS: URINE LEUK ESTERASE 2+ (NEGATIVE)
[2017-12-21] MEDS ORDERED: ONDANSETRON 4 MG/2 ML VIAL IVPB PRN (10:19)
[2017-12-21 10:21] LABS: EPI CELLS RARE /HPF (FEW); URINE BACTERIA FEW /hpf (NONE SEEN); YEAST RARE
[2017-12-21] MEDS: ALLOPURINOL 100 MG TABLET (FP) PO SCH (10:22)
[2017-12-21] MEDS: valACYclovir HCL 500 MG TABLET (FP) PO SCH (10:22)
[2017-12-21] MEDS: PANTOPRAZOLE 20 MG TABLET (FP) PO SCH (10:22)
[2017-12-21] MEDS ORDERED: ACETAMINOPHEN 325 MG TABLET (FP) PO PRN (10:35)
[2017-12-21 10:36] LABS: ALBUMIN 3.7 g/dl (3.4-5.0); ANION GAP 6 (8-16); BILIRUBIN,DIRECT < 0.2 mg/dL (0.0-0.2); BLOOD UREA NITROGEN 17 mg/dL (7-18); CALCIUM 8.8 mg/dL (8.5-10.1); CHLORIDE 107 mmol/L (98-107); CO2 27 mmol/L (21-32); CREATININE 0.7 mg/dL (0.55-1.02); GLUCOSE,RANDOM 71 mg/dL (74-106); LDH 163 U/L (84-246); POTASSIUM 4.3 mmol/L (3.5-5.1); SGOT/AST 18 U/L (15-37); SGPT/ALT 27 U/L (12-78); SODIUM 140 mmol/L (136-145); URIC ACID 2.2 mg/dL (2.6-7.2)
[2017-12-21] MEDS: predniSONE 20 MG TABLET (UD) PO SCH (10:44)
[2017-12-21 10:46] LABS: ALK PHOS 102 U/L (45-117); BILIRUBIN,TOTAL 0.1 mg/dL (0.2-1.0); TOT PROT 6.7 g/dl (6.4-8.2)
[2017-12-21 11:12] VITALS: BMI 23.8
[2017-12-21] MEDS ORDERED: DIPHENHYDRAMINE IVPB ONE (11:45)
[2017-12-21] MEDS ORDERED: DEXAMETHASONE IVPB ONE (11:45)
[2017-12-21] MEDS ORDERED: [UNRECOGNIZED DRUG - OTHER] IVPB ONE (11:45)
[2017-12-21] MEDS ORDERED: ONDANSETRON IVPB ONE (11:45)
[2017-12-21 11:51] LABS: ERYTHROCYTE SEDIMENTATION RATE 11 mm/hr (0-30)
[2017-12-21] MEDS ORDERED: FOSAPREPITANT DIMEGLUMINE 150 MG in SODIUM CHLORIDE 145 ML IVPB ONE (12:00)
[2017-12-21] MEDS ORDERED: DEXTROSE 5%-NORMAL SALINE 250 ML IV ONE (12:00)
[2017-12-21] MEDS ORDERED: SODIUM CHLORIDE IVPB ONE (12:30)
[2017-12-21] MEDS ORDERED: RITUXIMAB IVPB ONE (12:30)
[2017-12-21] MEDS ORDERED: VINCRISTINE SULFATE IV ONE (13:00)
[2017-12-21] MEDS ORDERED: DOXORUBICIN HCL IV ONE (13:00)
[2017-12-21] MEDS ORDERED: ETOPOSIDE IV ONE (13:00)
[2017-12-21] MEDS ORDERED: [UNRECOGNIZED DRUG - OTHER] IV ONE (13:00)
[2017-12-21] MEDS: DEXTROSE 5%-NORMAL SALINE 1,000 ML IV SCH (14:55)
--- NOTE | 2017-12-21 16:59 | HP ---
History and Physical History and Physical: Patient seen and examined 57 y/o female with primary mediastinal lymphoma, admitted for C6 REPOCH No fever/chills/cough/SOB/abdominal pain/nausea/vomiting/diarrhea/urinary symptoms Last Vital Signs Temp Pulse Resp BP Pulse Ox 98.0 F 83 18 111/56 98 12/21/17 14:39 12/21/17 14:39 12/21/17 14:39 12/21/17 14:39 12/21/17 08:09 Neck ---no adenopathy Cor: RSR, No murmurs, No gallops Lungs: Clear to P&A Abd: Soft, Normal bowel sounds, No organomegaly Ext:No significant edema Abnormal Lab Results 12/21/17 12/21/17 12/21/17 09:50 09:55 09:55 MCV 96.4 H RDW 15.8 H Neutrophils % 86.2 H Lymphocytes % 4.4 L D Anion Gap 6 L Random Glucose 71 L Uric Acid Total Bilirubin 0.1 L D Ur Leukocyte Esterase 2+ H 12/21/17 09:55 MCV RDW Neutrophils % Lymphocytes % Anion Gap Random Glucose Uric Acid 2.2 L D Total Bilirubin Ur Leukocyte Esterase Active Medications Generic Name Dose Route Start Last Admin Trade Name Freq PRN Reason Stop Dose Admin Acetaminophen 650 mg 12/21/17 10:35 12/21/17 13:53 Tylenol - PO 650 mg Q6H PRN Administration HEADACHE Allopurinol 100 mg 12/21/17 10:15 12/21/17 10:22 Zyloprim - PO Not Given DAILY JOHN Alprazolam 0.25 mg 12/21/17 10:04 Xanax - PO Q8H PRN ANXIETY Docusate Sodium 100 mg 12/21/17 10:04 Colace - PO TID PRN CONSTIPATION Doxorubicin HCl 15 mg/ 1,011.75 mls @ 42.156 mls/hr 12/21/17 13:00 Etoposide 75 mg/ Vincristine IV 12/22/17 12:59 Sulfate 0.5 mg/ Sodium ONCE ONE Chloride Dextrose/Sodium Chloride 1,000 mls @ 42 mls/hr 12/21/17 14:45 D5-Ns - IV ASDIR JOHN Ondansetron HCl 8 mg/ Sodium 104 mls @ 208 mls/hr 12/22/17 14:00 Chloride IVPB 12/22/17 14:29 ONCE ONE Doxorubicin HCl 15 mg/ 1,011.75 mls @ 42.156 mls/hr 12/22/17 14:30 Etoposide 75 mg/ Vincristine IV 12/23/17 14:29 Sulfate 0.5 mg/ Sodium ONCE ONE Chloride Ondansetron HCl 8 mg 12/21/17 10:19 Zofran Injection IVPB Q8H PRN NAUSEA Pantoprazole Sodium 20 mg 12/21/17 10:15 12/21/17 10:22 Protonix - PO Not Given DAILY [facility] Prednisone 90 mg 12/21/17 10:30 12/21/17 10:44 Deltasone - PO Not Given DAILY JOHN Senna 2 tab 12/21/17 10:09 Senna - PO HS PRN CONSTIPATION Trimethoprim/Sulfamethoxazole 1 each 12/21/17 10:15 12/21/17 10:21 Bactrim Ds - PO Not Given BID JOHN Valacyclovir HCl 500 mg 12/21/17 10:15 12/21/17 10:22 Valtrex - PO Not Given DAILY [facility] A/P 57 y/o patient with primary mediastinal lymphoma for C6 REPOCH PAtient with very good response to REPOCH
[2017-12-21] MEDS: DOCUSATE SODIUM 100 MG CAPSULE (FP) PO PRN (22:00)
[2017-12-21] MEDS: SENNOSIDES 8.6MG TABLET (FP) PO PRN (22:00)
[2017-12-21] MEDS: ALPRAZolam 0.25 MG TABLET PO PRN (22:00)
[2017-12-22 06:07] LABS: HEPATITIS B CORE ANTIBODY,IGM Negative (Negative); IGG IMMUNOGLOBULIN 905 mg/dL (700-1600); IGM IMMUNOGLOBULIN 106 mg/dL (26-217)
[2017-12-22] MEDS: ALLOPURINOL 100 MG TABLET (FP) PO SCH (09:33)
[2017-12-22] MEDS: PANTOPRAZOLE 20 MG TABLET (FP) PO SCH (09:33)
[2017-12-22] MEDS: valACYclovir HCL 500 MG TABLET (FP) PO SCH (09:33)
[2017-12-22] MEDS: SULFAMETHOXAZOLE/TRIMETHOPRIM 800MG/160MG D.S. TABLET PO SCH (09:33)
[2017-12-22] MEDS: predniSONE 20 MG TABLET (UD) PO SCH (09:34)
[2017-12-22] MEDS: DEXTROSE 5%-NORMAL SALINE 1,000 ML IV SCH (09:34)
[2017-12-22 10:00] LABS: BASO % 0.1 % (0-2.0); HEMATOCRIT 34.4 % (32.4-45.2); HEMOGLOBIN 11.6 GM/dL (10.7-15.3); LYMPH % 1.2 % (8-40); MCH 32.3 pg (25.7-33.7); MCHC 33.5 g/dl (32.0-36.0); MEAN CELL VOLUME 96.4 fl (80-96); MEAN PLT VOLUME 8.4 fl (7.5-11.1); MONO % 0.6 % (3.8-10.2); NEUT % 98.1 % (42.8-82.8); PLATELET COUNT 269 K/MM3 (134-434); RBC 3.57 M/mm3 (3.60-5.2); RDW 15.8 % (11.6-15.6); WHITE BLOOD COUNT 11.6 K/mm3 (4.0-10.0)
[2017-12-22 10:26] LABS: ALBUMIN 3.4 g/dl (3.4-5.0); ANION GAP 7 (8-16); BLOOD UREA NITROGEN 16 mg/dL (7-18); CALCIUM 8.9 mg/dL (8.5-10.1); CHLORIDE 111 mmol/L (98-107); CO2 24 mmol/L (21-32); GLUCOSE,RANDOM 107 mg/dL (74-106); SODIUM 142 mmol/L (136-145)
[2017-12-22 10:29] LABS: ALK PHOS 95 U/L (45-117); BILIRUBIN,TOTAL 0.2 mg/dL (0.2-1.0); CREATININE 0.6 mg/dL (0.55-1.02); SGOT/AST 35 U/L (15-37); SGPT/ALT 48 U/L (12-78); TOT PROT 6.3 g/dl (6.4-8.2)
[2017-12-22] MEDS ORDERED: ONDANSETRON INJECTION 8 MG in SODIUM CHLORIDE 100 ML IVPB ONE (14:00)
[2017-12-22] MEDS ORDERED: ETOPOSIDE IV ONE (14:30)
[2017-12-22] MEDS ORDERED: [UNRECOGNIZED DRUG - OTHER] IV ONE (14:30)
[2017-12-22] MEDS ORDERED: VINCRISTINE SULFATE IV ONE (14:30)
[2017-12-22] MEDS ORDERED: DOXORUBICIN HCL IV ONE (14:30)
--- NOTE | 2017-12-22 18:37 | PN ---
Progress Note (short form) - Note Progress Note: Patient seen and examined Last Vital Signs Temp Pulse Resp BP Pulse Ox 97.5 F L 89 20 133/63 96 12/22/17 13:56 12/22/17 13:56 12/22/17 13:56 12/22/17 13:56 12/22/17 09:00 Tolerating chemotherapy without untoward effect. HEENT: JACQUES, EOM Intact Oropharynx: No thrush, No mucositis Neck: Supple Nodes: Without adenopathy Cor: RSR, No murmurs, No gallops Lungs: Clear to P&A Abd: Soft, Normal bowel sounds, No organomegaly Ext:No significant edema--trace edema Skin: No rashes, Integument intact CBC, BMP 12/22/17 08:40 12/22/17 08:40 Current Medications Generic Name Dose Route Start Last Admin Trade Name Freq PRN Reason Stop Dose Admin Acetaminophen 650 mg 12/21/17 10:35 12/21/17 13:53 Tylenol - PO 650 mg Q6H PRN Administration HEADACHE Allopurinol 100 mg 12/21/17 10:15 12/22/17 09:33 Zyloprim - PO 100 mg DAILY JOHN Administration Alprazolam 0.25 mg 12/21/17 10:04 12/21/17 22:00 Xanax - PO 0.25 mg Q8H PRN Administration ANXIETY Docusate Sodium 100 mg 12/21/17 10:04 12/21/17 22:00 Colace - PO 100 mg TID PRN Administration CONSTIPATION IV Flush 10 ml 12/21/17 17:19 Chelle-Cath Flush IVPUSH PRN PRN port a cath flush protocol Dextrose/Sodium Chloride 1,000 mls @ 42 mls/hr 12/21/17 14:45 12/22/17 09:34 D5-Ns - IV 42 mls/hr ASDIR JOHN Administration Doxorubicin HCl 15 mg/ 1,011.75 mls @ 42.156 mls/hr 12/22/17 14:30 12/22/17 17:10 Etoposide 75 mg/ Vincristine IV 12/23/17 14:29 42.156 mls/hr Sulfate 0.5 mg/ Sodium ONCE ONE Administration Chloride Ondansetron HCl 8 mg/ Sodium 104 mls @ 208 mls/hr 12/23/17 14:00 Chloride IVPB 12/23/17 14:29 ONCE ONE Doxorubicin HCl 15 mg/ 1,011.75 mls @ 42.156 mls/hr 12/23/17 14:30 Etoposide 75 mg/ Vincristine IV 12/24/17 14:29 Sulfate 0.5 mg/ Sodium ONCE ONE Chloride Ondansetron HCl 8 mg 12/21/17 10:19 Zofran Injection IVPB Q8H PRN NAUSEA Pantoprazole Sodium 20 mg 12/21/17 10:15 12/22/17 09:33 Protonix - PO 20 mg DAILY JOHN Administration Prednisone 90 mg 12/21/17 10:30 12/22/17 09:34 Deltasone - PO 90 mg DAILY JOHN Administration Senna 2 tab 12/21/17 10:09 12/21/17 22:00 Senna - PO 2 tab HS PRN Administration CONSTIPATION Trimethoprim/Sulfamethoxazole 1 each 12/22/17 10:00 12/22/17 09:33 Bactrim Ds - PO 1 each TUTHSA JOHN Administration Valacyclovir HCl 500 mg 12/21/17 10:15 12/22/17 09:33 Valtrex - PO 500 mg DAILY JOHN Administration Impression Mediastinal "B" cell lymphoma chemotherapy Plan: Lasix in AM continue current treatment schema
[2017-12-22] MEDS ORDERED: FUROSEMIDE 40 MG/4 ML INJECTABLE VIAL IVPUSH ONE ×2 (18:38→21:15)
[2017-12-22] MEDS ORDERED: POTASSIUM CHLORIDE TABS 20 MEQ TABLET.ER (FP) PO ONE ×2 (18:39→21:15)
[2017-12-22] MEDS: ALPRAZolam 0.25 MG TABLET PO PRN (22:11)
[2017-12-22] MEDS: DOCUSATE SODIUM 100 MG CAPSULE (FP) PO PRN (22:11)
[2017-12-23] MEDS ORDERED: FUROSEMIDE 40 MG/4 ML INJECTABLE VIAL IVPUSH ONE (07:00)
[2017-12-23] MEDS ORDERED: POTASSIUM CHLORIDE TABS 20 MEQ TABLET.ER (FP) PO ONE (07:00)
[2017-12-23 07:46] LABS: BASO % 0.3 % (0-2.0); HEMATOCRIT 30.1 % (32.4-45.2); HEMOGLOBIN 10.3 GM/dL (10.7-15.3); LYMPH % 3.3 % (8-40); MCH 32.8 pg (25.7-33.7); MCHC 34.1 g/dl (32.0-36.0); MEAN CELL VOLUME 96.3 fl (80-96); MEAN PLT VOLUME 7.9 fl (7.5-11.1); MONO % 7.8 % (3.8-10.2); NEUT % 88.6 % (42.8-82.8); PLATELET COUNT 231 K/MM3 (134-434); RBC 3.13 M/mm3 (3.60-5.2); RDW 15.8 % (11.6-15.6); WHITE BLOOD COUNT 8.2 K/mm3 (4.0-10.0)
[2017-12-23 08:35] LABS: CHLORIDE 113 mmol/L (98-107); POTASSIUM 3.6 mmol/L (3.5-5.1); SODIUM 144 mmol/L (136-145)
[2017-12-23 08:42] LABS: ALK PHOS 77 U/L (45-117); ANION GAP 6 (8-16); BILIRUBIN,TOTAL 0.4 mg/dL (0.2-1.0); BLOOD UREA NITROGEN 10 mg/dL (7-18); CALCIUM 8.4 mg/dL (8.5-10.1); CO2 25 mmol/L (21-32); CREATININE 0.5 mg/dL (0.55-1.02); GLUCOSE,RANDOM 72 mg/dL (74-106); LDH 132 U/L (84-246); MAGNESIUM 1.9 mg/dL (1.8-2.4); SGOT/AST 17 U/L (15-37); SGPT/ALT 33 U/L (12-78); TOT PROT 5.4 g/dl (6.4-8.2); URIC ACID 2.7 mg/dL (2.6-7.2)
[2017-12-23] MEDS: DEXTROSE 5%-NORMAL SALINE 1,000 ML IV SCH ×2 (10:22→17:19)
[2017-12-23] MEDS: ALLOPURINOL 100 MG TABLET (FP) PO SCH (10:30)
[2017-12-23] MEDS: valACYclovir HCL 500 MG TABLET (FP) PO SCH (10:30)
[2017-12-23] MEDS: predniSONE 20 MG TABLET (UD) PO SCH (10:30)
[2017-12-23] MEDS: PANTOPRAZOLE 20 MG TABLET (FP) PO SCH (10:30)
--- NOTE | 2017-12-23 12:36 | PN ---
Progress Note (short form) - Note Progress Note: ID consult dictated 57 year old female with B cell lymphoma admitted for chemotherapy no fevers not neutropenic she noted cloudy urine, no dysuria no suprapubic pain, no cvat urine culture with ecoli ESBL , pyuria possible cystitis vs asymptomatic bacteriuria repeat ua and urine culture contact isolation esbl macrobid for 7 days B cell lymphoma on chemo Problem List - Problems (1) Cystitis Code(s): N30.90 - CYSTITIS, UNSPECIFIED WITHOUT HEMATURIA (2) Large B-cell lymphoma Code(s): C85.10 - UNSPECIFIED B-CELL LYMPHOMA, UNSPECIFIED SITE
[2017-12-23 13:55] LABS: URINE APPEARANCE SLCLOUDY; URINE BILIRUBIN NEGATIVE (<2.0 mg/dL); URINE COLOR LTYELLOW; URINE GLUCOSE (UA) NEGATIVE (NEGATIVE); URINE KETONE NEGATIVE (NEGATIVE); URINE NITRITE NEGATIVE (NEGATIVE); URINE PROTEIN NEGATIVE (NEGATIVE); URINE UROBILINOGEN NEGATIVE mg/dL (0.2-1.0)
[2017-12-23 13:58] LABS: URINE LEUK ESTERASE 2+ (NEGATIVE)
[2017-12-23 14:00] LABS: URINE BACTERIA MODERATE /hpf (NONE SEEN); URINE MUCUS RARE
[2017-12-23] MEDS ORDERED: ONDANSETRON INJECTION 8 MG in SODIUM CHLORIDE 100 ML IVPB ONE (14:00)
[2017-12-23] MEDS ORDERED: VINCRISTINE SULFATE IV ONE (14:30)
[2017-12-23] MEDS ORDERED: DOXORUBICIN HCL IV ONE (14:30)
[2017-12-23] MEDS ORDERED: [UNRECOGNIZED DRUG - OTHER] IV ONE (14:30)
[2017-12-23] MEDS ORDERED: ETOPOSIDE IV ONE (14:30)
--- NOTE | 2017-12-23 14:38 | PN ---
Progress Note (short form) - Note Progress Note: Patient seen and examined Seen by [facility] for E.Coli-ESBL To reculture and begin Macrobid Offers no complaints on comprehensive ROS Last Vital Signs Temp Pulse Resp BP Pulse Ox 97.6 F 83 20 124/78 99 12/23/17 13:53 12/23/17 13:53 12/23/17 13:53 12/23/17 13:53 12/23/17 09:00 HEENT: JACQUES, EOM Intact Oropharynx: No thrush, No mucositis Neck: Supple Nodes-without Cor: RSR, No murmurs, No gallops Lungs: Clear to P&A Abd: Soft, Normal bowel sounds, No organomegaly Ext:No significant edema Skin: No rashes, Integument intact CBC, BMP 12/23/17 08:00 12/23/17 06:00 Current Medications Generic Name Dose Route Start Last Admin Trade Name Freq PRN Reason Stop Dose Admin Acetaminophen 650 mg 12/21/17 10:35 12/21/17 13:53 Tylenol - PO 650 mg Q6H PRN Administration HEADACHE Allopurinol 100 mg 12/21/17 10:15 12/23/17 10:30 Zyloprim - PO 100 mg DAILY JOHN Administration Alprazolam 0.25 mg 12/21/17 10:04 12/22/17 22:11 Xanax - PO 0.25 mg Q8H PRN Administration ANXIETY Docusate Sodium 100 mg 12/21/17 10:04 12/22/17 22:11 Colace - PO 100 mg TID PRN Administration CONSTIPATION IV Flush 10 ml 12/21/17 17:19 Chelle-Cath Flush IVPUSH PRN PRN port a cath flush protocol Dextrose/Sodium Chloride 1,000 mls @ 42 mls/hr 12/21/17 14:45 12/23/17 10:22 D5-Ns - IV 42 mls/hr ASDIR JOHN Administration Doxorubicin HCl 15 mg/ 1,011.75 mls @ 42.156 mls/hr 12/23/17 14:30 12/23/17 14:20 Etoposide 75 mg/ Vincristine IV 12/24/17 14:29 42.156 mls/hr Sulfate 0.5 mg/ Sodium ONCE ONE Administration Chloride Ondansetron HCl 8 mg/ Sodium 104 mls @ 208 mls/hr 12/24/17 14:00 Chloride IVPB 12/24/17 14:29 ONCE ONE Doxorubicin HCl 15 mg/ 1,011.75 mls @ 42.156 mls/hr 12/24/17 14:30 Etoposide 75 mg/ Vincristine IV 12/25/17 14:29 Sulfate 0.5 mg/ Sodium ONCE ONE Chloride Nitrofurantoin Macrocrystals 50 mg 12/23/17 18:00 Macrodantin - PO Q6HPO JOHN Ondansetron HCl 8 mg 12/21/17 10:19 Zofran Injection IVPB Q8H PRN NAUSEA Pantoprazole Sodium 20 mg 12/21/17 10:15 12/23/17 10:30 Protonix - PO 20 mg DAILY JOHN Administration Prednisone 90 mg 12/21/17 10:30 12/23/17 10:30 Deltasone - PO 90 mg DAILY JOHN Administration Senna 2 tab 12/21/17 10:09 12/21/17 22:00 Senna - PO 2 tab HS PRN Administration CONSTIPATION Trimethoprim/Sulfamethoxazole 1 each 12/22/17 10:00 12/22/17 09:33 Bactrim Ds - PO 1 each TUTHSA JOHN Administration Valacyclovir HCl 500 mg 12/21/17 10:15 12/23/17 10:30 Valtrex - PO 500 mg DAILY JOHN Administration Impression: Mediastinal "B" cell lymphoma [id number] Plan: Continue treatment Macrobid-
[2017-12-23] MEDS: NITROFURANTOIN MACROCRYSTAL 50 MG CAPSULE (FP) PO SCH ×2 (17:35→23:53)
--- NOTE | 2017-12-23 18:54 | CONS ---
DATE OF CONSULTATION: DATE OF DICTATION: 12/23/2017 INFECTIOUS DISEASE CONSULTATION REQUESTING PHYSICIAN: Devon Rahman M.D. CONSULTING PHYSICIAN: Abbi Turner M.D. HISTORY OF PRESENT ILLNESS: This is a 57-year-old woman with primary mediastinal lymphadenopathy admitted for cycle 6 of chemotherapy. She has been feeling well. There has been no fever, chills. She is admitted for routine chemotherapy. She mentioned to her oncologist that her urine had become foul smelling and was a little bit darker than usual. She had no fevers, chills, no back pain or flank pain or dysuria. He checked her urinalysis and urine culture and is asking me to see her for a positive urine culture. She otherwise feels well and has no complaints. PAST MEDICAL HISTORY: Notable for an admission in August when she had E. coli urosepsis; this was after her 2nd cycle of chemotherapy. Past medical history notable for the mediastinal lymphoma, cycle number 6. She had a history of nephrectomy in the past. She is allergic to PENICILLIN, which gave her a rash as a child. Addendum for her PENICILLIN allergy: She has been treated with cephalosporins in the past, which she tolerates. SOCIAL HISTORY: She is . She lives with her daughter, who is 14. REVIEW OF SYSTEMS: She has no cough or shortness of breath. She has no fevers, chills, flank pain, or dysuria. She has no nausea, vomiting, or diarrhea. PHYSICAL EXAMINATION: General: She is awake and alert, in no acute distress. Vital signs: Temperature 97.6, pulse 83, blood pressure 124/78, respiratory rate 20. She is saturating 99% on room air. HEENT: Normocephalic. Eyes are anicteric. Neck: Supple. Lungs: Clear to auscultation. Heart: Regular rate and rhythm. Abdomen: Soft, nontender. Extremities: Without edema. Port site is clean. She has no CVA or suprapubic discomfort. LABORATORY: White count is 8.2, hemoglobin 10.3, platelets are 231, BUN and creatinine are 10 and 0.5. Urinalysis is 2+ leukocytes with 91 white cells, and urine culture grew an E. coli ESBL, studio producer sensitive to nitrofurantoin, as well as the carbapenems. IMPRESSION: In summary, this is a 57-year-old woman with B-cell lymphoma admitted for chemotherapy, no fevers, non-neutropenic. She noted cloudy urine, no dysuria, no suprapubic pain or cerebrovascular accident tenderness. Urine culture with Escherichia coli extended-spectrum beta-lactamase. She also had some pyuria. Possible cystitis. Would repeat a urinalysis and urine culture. Contact isolation for extended-spectrum beta-lactamase. Would treat with Macrobid for 7 days. B- cell lymphoma on chemotherapy. Case was discussed with Dr. Rahman. ABBI TURNER M.D. [id number] [facility]PITALAlexy
[2017-12-23] MEDS: ALPRAZolam 0.25 MG TABLET PO PRN (21:25)
[2017-12-23] MEDS: DOCUSATE SODIUM 100 MG CAPSULE (FP) PO PRN (21:25)
[2017-12-23] MEDS: PORTA CATH FLUSH 10 ML IVPUSH PRN (21:26)
[2017-12-24] MEDS: NITROFURANTOIN MACROCRYSTAL 50 MG CAPSULE (FP) PO SCH ×3 (06:04→17:54)
[2017-12-24 07:26] LABS: BASO % 0.3 % (0-2.0); HEMATOCRIT 30.3 % (32.4-45.2); HEMOGLOBIN 10.4 GM/dL (10.7-15.3); LYMPH % 6.1 % (8-40); MCH 33.1 pg (25.7-33.7); MCHC 34.4 g/dl (32.0-36.0); MEAN CELL VOLUME 96.3 fl (80-96); MEAN PLT VOLUME 7.7 fl (7.5-11.1); MONO % 9.5 % (3.8-10.2); NEUT % 84.1 % (42.8-82.8); PLATELET COUNT 232 K/MM3 (134-434); RBC 3.15 M/mm3 (3.60-5.2); RDW 16.1 % (11.6-15.6); WHITE BLOOD COUNT 4.4 K/mm3 (4.0-10.0)
[2017-12-24 07:45] LABS: ALBUMIN 3.1 g/dl (3.4-5.0); ALK PHOS 68 U/L (45-117); ANION GAP 7 (8-16); BILIRUBIN,TOTAL 0.3 mg/dL (0.2-1.0); BLOOD UREA NITROGEN 16 mg/dL (7-18); CALCIUM 8.9 mg/dL (8.5-10.1); CHLORIDE 109 mmol/L (98-107); CO2 28 mmol/L (21-32); CREATININE 0.5 mg/dL (0.55-1.02); GLUCOSE,RANDOM 64 mg/dL (74-106); LDH 119 U/L (84-246); MAGNESIUM 2.1 mg/dL (1.8-2.4); POTASSIUM 3.7 mmol/L (3.5-5.1); SGOT/AST 17 U/L (15-37); SGPT/ALT 32 U/L (12-78); SODIUM 144 mmol/L (136-145); TOT PROT 5.5 g/dl (6.4-8.2); URIC ACID 4.3 mg/dL (2.6-7.2)
[2017-12-24] MEDS: DEXTROSE 5%-NORMAL SALINE 1,000 ML IV SCH ×2 (10:26→17:55)
[2017-12-24] MEDS: predniSONE 20 MG TABLET (UD) PO SCH (10:29)
[2017-12-24] MEDS: valACYclovir HCL 500 MG TABLET (FP) PO SCH (10:30)
[2017-12-24] MEDS: ALLOPURINOL 100 MG TABLET (FP) PO SCH (10:30)
[2017-12-24] MEDS: PANTOPRAZOLE 20 MG TABLET (FP) PO SCH (10:30)
[2017-12-24] MEDS: SULFAMETHOXAZOLE/TRIMETHOPRIM 800MG/160MG D.S. TABLET PO SCH (10:41)
[2017-12-24] MEDS ORDERED: ONDANSETRON INJECTION 8 MG in SODIUM CHLORIDE 100 ML IVPB ONE (14:00)
[2017-12-24] MEDS ORDERED: ETOPOSIDE IV ONE (14:30)
[2017-12-24] MEDS ORDERED: [UNRECOGNIZED DRUG - OTHER] IV ONE (14:30)
[2017-12-24] MEDS ORDERED: DOXORUBICIN HCL IV ONE (14:30)
[2017-12-24] MEDS ORDERED: VINCRISTINE SULFATE IV ONE (14:30)
--- NOTE | 2017-12-24 19:59 | PN ---
Progress Note (short form) - Note Progress Note: Patient seen and examined Offers no complaints on comprehensive ROS In particular, No GI, Cardipulmonary , of symptoms Last Vital Signs Temp Pulse Resp BP Pulse Ox 97.6 F 77 20 116/75 100 12/24/17 18:43 12/24/17 18:43 12/24/17 18:43 12/24/17 18:43 12/24/17 09:00 HEENT: JACQUES, EOM Intact Oropharynx: No thrush, No mucositis Neck: Supple Nodes: Without adenopathy Cor: RSR, No murmurs, No gallops Lungs: Clear to P&A Abd: Soft, Normal bowel sounds, No organomegaly Ext:No significant edema Skin: No rashes, Integument intact CBC, BMP 12/24/17 06:00 12/24/17 06:00 Current Medications Generic Name Dose Route Start Last Admin Trade Name Freq PRN Reason Stop Dose Admin Acetaminophen 650 mg 12/21/17 10:35 12/21/17 13:53 Tylenol - PO 650 mg Q6H PRN Administration HEADACHE Allopurinol 100 mg 12/21/17 10:15 12/24/17 10:30 Zyloprim - PO 100 mg DAILY JOHN Administration Docusate Sodium 100 mg 12/21/17 10:04 12/23/17 21:25 Colace - PO 100 mg TID PRN Administration CONSTIPATION IV Flush 10 ml 12/21/17 17:19 12/23/17 21:26 Chelle-Cath Flush IVPUSH 10 ml PRN PRN Administration port a cath flush protocol Dextrose/Sodium Chloride 1,000 mls @ 42 mls/hr 12/21/17 14:45 12/24/17 17:55 D5-Ns - IV Not Given ASDIR JOHN Doxorubicin HCl 15 mg/ 1,011.75 mls @ 42.156 mls/hr 12/24/17 14:30 12/24/17 13:49 Etoposide 75 mg/ Vincristine IV 12/25/17 14:29 42.156 mls/hr Sulfate 0.5 mg/ Sodium ONCE ONE Administration Chloride Ondansetron HCl 12 mg/ Sodium 106 mls @ 212 mls/hr 12/25/17 14:00 Chloride IVPB 12/25/17 14:29 ONCE ONE Cyclophosphamide 1,120 mg/ 306 mls @ 306 mls/hr 12/25/17 14:30 Sodium Chloride IVPB 12/25/17 15:29 ONCE ONE Nitrofurantoin Macrocrystals 50 mg 12/23/17 18:00 12/24/17 17:54 Macrodantin - PO 50 mg Q6HPO JOHN Administration Ondansetron HCl 8 mg 12/21/17 10:19 Zofran Injection IVPB Q8H PRN NAUSEA Pantoprazole Sodium 20 mg 12/21/17 10:15 12/24/17 10:30 Protonix - PO 20 mg DAILY JOHN Administration Prednisone 90 mg 12/21/17 10:30 12/24/17 10:29 Deltasone - PO 90 mg DAILY JOHN Administration Senna 2 tab 12/21/17 10:09 12/21/17 22:00 Senna - PO 2 tab HS PRN Administration CONSTIPATION Trimethoprim/Sulfamethoxazole 1 each 12/22/17 10:00 12/24/17 10:41 Bactrim Ds - PO 1 each TUTHSA JOHN Administration Valacyclovir HCl 500 mg 12/21/17 10:15 12/24/17 10:30 Valtrex - PO 500 mg DAILY JOHN Administration Impression: B cell mediastinal lymphoma Chemotherapy E.coli UTI on antibiotics Plan: Completion of chemotherapy. Ele
[2017-12-24] MEDS ORDERED: ALPRAZolam 0.25 MG TABLET PO PRN (20:40)
[2017-12-24] MEDS: SENNOSIDES 8.6MG TABLET (FP) PO PRN (21:47)
[2017-12-25] MEDS: NITROFURANTOIN MACROCRYSTAL 50 MG CAPSULE (FP) PO SCH ×3 (00:47→12:21)
[2017-12-25] MEDS: PORTA CATH FLUSH 10 ML IVPUSH PRN (07:13)
[2017-12-25 08:21] LABS: ALBUMIN 3.1 g/dl (3.4-5.0); ANION GAP 2 (8-16); BLOOD UREA NITROGEN 13 mg/dL (7-18); CALCIUM 8.8 mg/dL (8.5-10.1); CHLORIDE 109 mmol/L (98-107); CO2 30 mmol/L (21-32); CREATININE 0.5 mg/dL (0.55-1.02); GLUCOSE,RANDOM 66 mg/dL (74-106); POTASSIUM 3.6 mmol/L (3.5-5.1); SGOT/AST 14 U/L (15-37); SGPT/ALT 28 U/L (12-78); SODIUM 141 mmol/L (136-145)
[2017-12-25 08:22] LABS: ALK PHOS 67 U/L (45-117); BILIRUBIN,TOTAL 0.5 mg/dL (0.2-1.0); TOT PROT 5.4 g/dl (6.4-8.2)
[2017-12-25] MEDS: predniSONE 20 MG TABLET (UD) PO SCH (09:43)
[2017-12-25] MEDS: valACYclovir HCL 500 MG TABLET (FP) PO SCH (09:44)
[2017-12-25] MEDS: PANTOPRAZOLE 20 MG TABLET (FP) PO SCH (09:44)
[2017-12-25] MEDS: ALLOPURINOL 100 MG TABLET (FP) PO SCH (09:44)
--- NOTE | 2017-12-25 10:17 | PN ---
Progress Note (short form) - Note Progress Note: Patient seen and examined Completing course of chemotherapy. Tolerating well to date Remains afebrile on Macrobid Comprehensive ROS No headaches, diplopia, epistaxis, dysphagia, chestpain, GERD, palpitations, nausea, emesis, diarrhea, some constipation, no dysuria, hematuria, pyuria, no vaginal bleeding or discharge, no significant musculoskeletal complaints Last Vital Signs Temp Pulse Resp BP Pulse Ox 98.1 F 62 18 124/72 96 12/25/17 06:02 12/25/17 06:02 12/25/17 06:02 12/25/17 06:02 12/24/17 21:00 HEENT: JACQUES, EOM Intact Oropharynx: No thrush, No mucositis Neck: Supple Nodes: Without adenopathy Breasts: Without masses Cor: RSR, No murmurs, No gallops Lungs: Clear to P&A Abd: Soft, Normal bowel sounds, No organomegaly Ext:No significant edema Skin: No rashes, Integument intact CBC, BMP 12/25/17 06:00 Current Medications Generic Name Dose Route Start Last Admin Trade Name Freq PRN Reason Stop Dose Admin Acetaminophen 650 mg 12/21/17 10:35 12/21/17 13:53 Tylenol - PO 650 mg Q6H PRN Administration HEADACHE Allopurinol 100 mg 12/21/17 10:15 12/25/17 09:44 Zyloprim - PO 100 mg DAILY JOHN Administration Alprazolam 0.25 mg 12/24/17 20:40 12/24/17 21:48 Xanax - PO 0.25 mg Q8H PRN Administration ANXIETY Docusate Sodium 100 mg 12/21/17 10:04 12/23/17 21:25 Colace - PO 100 mg TID PRN Administration CONSTIPATION IV Flush 10 ml 12/21/17 17:19 12/25/17 07:13 Chelle-Cath Flush IVPUSH 10 ml PRN PRN Administration port a cath flush protocol Dextrose/Sodium Chloride 1,000 mls @ 42 mls/hr 12/21/17 14:45 12/24/17 17:55 D5-Ns - IV Not Given ASDIR JOHN Doxorubicin HCl 15 mg/ 1,011.75 mls @ 42.156 mls/hr 12/24/17 14:30 12/24/17 13:49 Etoposide 75 mg/ Vincristine IV 12/25/17 14:29 42.156 mls/hr Sulfate 0.5 mg/ Sodium ONCE ONE Administration Chloride Ondansetron HCl 12 mg/ Sodium 106 mls @ 212 mls/hr 12/25/17 14:00 Chloride IVPB 12/25/17 14:29 ONCE ONE Cyclophosphamide 1,120 mg/ 306 mls @ 306 mls/hr 12/25/17 14:30 Sodium Chloride IVPB 12/25/17 15:29 ONCE ONE Nitrofurantoin Macrocrystals 50 mg 12/23/17 18:00 12/25/17 06:12 Macrodantin - PO 50 mg Q6HPO JOHN Administration Ondansetron HCl 8 mg 12/21/17 10:19 Zofran Injection IVPB Q8H PRN NAUSEA Pantoprazole Sodium 20 mg 12/21/17 10:15 12/25/17 09:44 Protonix - PO 20 mg DAILY JOHN Administration Prednisone 90 mg 12/21/17 10:30 12/25/17 09:43 Deltasone - PO 90 mg DAILY JOHN Administration Senna 2 tab 12/21/17 10:09 12/24/17 21:47 Senna - PO 2 tab HS PRN Administration CONSTIPATION Trimethoprim/Sulfamethoxazole 1 each 12/22/17 10:00 12/24/17 10:41 Bactrim Ds - PO 1 each TUTHSA JOHN Administration Valacyclovir HCl 500 mg 12/21/17 10:15 12/25/17 09:44 Valtrex - PO 500 mg DAILY JOHN Administration Impression: Completing course of chemotherapy Continuing on Macrobid for E.Coli ESBL Plan: Cytoxan to complete course of therapy Macrobid Neulasta--12/28
[2017-12-25] MEDS ORDERED: PEGFILGRASTIM 6 MG/0.6 ML DISP.SYRIN SQ ONE (11:30)
[2017-12-25] MEDS ORDERED: PT OWN MED DRAWER 7, Y5N ONE (12:10)
[2017-12-25] MEDS: DEXTROSE 5%-NORMAL SALINE 1,000 ML IV SCH (12:22)
[2017-12-25 12:43] LABS: BASO % 0.4 % (0-2.0); EOS % 0.1 % (0-4.5); HEMATOCRIT 29.7 % (32.4-45.2); HEMOGLOBIN 10.3 GM/dL (10.7-15.3); LYMPH % 8.4 % (8-40); MCH 33.2 pg (25.7-33.7); MCHC 34.6 g/dl (32.0-36.0); MEAN PLT VOLUME 7.9 fl (7.5-11.1); MONO % 5.5 % (3.8-10.2); NEUT % 85.6 % (42.8-82.8); PLATELET COUNT 241 K/MM3 (134-434); RDW 15.8 % (11.6-15.6); WHITE BLOOD COUNT 3.7 K/mm3 (4.0-10.0)
[2017-12-25 13:47] VITALS: BP 126/77; PULSE 81; TEMP 98.4
[2017-12-25] MEDS ORDERED: ONDANSETRON IVPB ONE (14:00)
[2017-12-25] MEDS ORDERED: SODIUM CHLORIDE IVPB ONE ×2 (14:00→14:30)
[2017-12-25] MEDS ORDERED: CYCLOPHOSPHAMIDE IVPB ONE (14:30)
== END 2017-12-25 16:15 | disposition home or self-care (01) | DRG 693 ==
LOC: J7W 08:09
PROVIDERS: ADMIT Internal Medicine Hematology & Oncology; ATTEND Internal Medicine Hematology & Oncology
DX: Z51.11 Encounter for antineoplastic chemotherapy (principal); C85.20 Mediastinal (thymic) large B-cell lymphoma, unspecified site; N39.0 Urinary tract infection, site not specified; B96.29 Other Escherichia coli [E. coli] as the cause of diseases classified elsewhere; Z16.12 Extended spectrum beta lactamase (ESBL) resistance
CPT/HCPCS: 36415; 80048; 80053; 80076; 81003; 81015; 82232; 82784; 83615; 83735; 84439; 84443; 84550; 85025; 85651; 86705; 87086; 87186; 87350; 96361; 96367; 96375; 96413; 96415; J1100; J1453; J2405; J7030; J9070; J9181; J9310; J9370

== ENCOUNTER 2017-12-28 07:36 | Day surgery (SDC) | payer OTHER ==
[2017-12-28 09:19] LABS: BASO % 0.6 % (0-2.0); EOS % 2.6 % (0-4.5); HEMATOCRIT 34.1 % (32.4-45.2); HEMOGLOBIN 11.8 GM/dL (10.7-15.3); LYMPH % 4.4 % (8-40); MCHC 34.5 g/dl (32.0-36.0); MEAN CELL VOLUME 95.7 fl (80-96); MEAN PLT VOLUME 7.8 fl (7.5-11.1); MONO % 1.5 % (3.8-10.2); NEUT % 90.9 % (42.8-82.8); PLATELET COUNT 281 K/MM3 (134-434); RBC 3.57 M/mm3 (3.60-5.2); RDW 15.2 % (11.6-15.6); WHITE BLOOD COUNT 3.9 K/mm3 (4.0-10.0)
[2017-12-28 09:49] LABS: ALBUMIN 3.8 g/dl (3.4-5.0); ALK PHOS 83 U/L (45-117); ANION GAP 6 (8-16); BILIRUBIN,DIRECT < 0.2 mg/dL (0.0-0.2); BILIRUBIN,TOTAL 0.5 mg/dL (0.2-1.0); BLOOD UREA NITROGEN 26 mg/dL (7-18); CALCIUM 8.9 mg/dL (8.5-10.1); CHLORIDE 104 mmol/L (98-107); CO2 27 mmol/L (21-32); CREATININE 0.7 mg/dL (0.55-1.02); GLUCOSE,RANDOM 77 mg/dL (74-106); POTASSIUM 4.1 mmol/L (3.5-5.1); SGOT/AST 16 U/L (15-37); SGPT/ALT 29 U/L (12-78); SODIUM 137 mmol/L (136-145); TOT PROT 6.7 g/dl (6.4-8.2)
[2017-12-28] MEDS ORDERED: PEGFILGRASTIM 6 MG/0.6 ML DISP.SYRIN SQ ONE (10:00)
[2017-12-28 16:48] VITALS: BP 97/77; PULSE 97; TEMP 97.6
== END 2017-12-28 10:00 | disposition home or self-care (01) ==
LOC: JONCCHEMO 07:36 → J7W 09:42 → JONCCHEMO 10:00
PROVIDERS: ATTEND Internal Medicine Hematology & Oncology
PROC: 3E033GC Introduction of Other Therapeutic Substance into Peripheral Vein, Percutaneous Approach (ICD-10-PCS; principal; 2017-12-28)
DX: C85.20 Mediastinal (thymic) large B-cell lymphoma, unspecified site (principal); Z76.89 Persons encountering health services in other specified circumstances
CPT/HCPCS: 36415; 80048; 80076; 83735; 85025; 96372; J2505

== ENCOUNTER 2018-01-01 10:27 | Day surgery (SDC) | payer OTHER ==
[2018-01-01] MEDS ORDERED: DEXTROSE 5%-NORMAL SALINE 1,000 ML IV ONE (11:00)
[2018-01-01 14:54] VITALS: BP 113/57; PULSE 97; TEMP 97.2
[2018-01-01] MEDS ORDERED: PORTA CATH FLUSH 10 ML IVPUSH PRN (15:16)
== END 2018-01-01 13:00 | disposition home or self-care (01) ==
LOC: JONCCHEMO 10:27
PROVIDERS: ATTEND Internal Medicine Hematology & Oncology
PROC: 3E0437Z Introduction of Electrolytic and Water Balance Substance into Central Vein, Percutaneous Approach (ICD-10-PCS; principal; 2018-01-01)
DX: C85.20 Mediastinal (thymic) large B-cell lymphoma, unspecified site (principal)
CPT/HCPCS: 96360; 96361

== ENCOUNTER → 2019-01-24 | Emergency (ER) | payer OTHER | LOC: JER 22:04 ==

== ENCOUNTER 2019-06-28 09:16 | Day surgery (SDC) | payer OTHER ==
[2019-06-27 15:57] VITALS: BMI 23.0
[2019-06-28 11:51] VITALS: TEMP 97.1
[2019-06-28 13:33] VITALS: BP 100/62; PULSE 73
--- NOTE | 2019-06-30 15:52 | PATH ---
Surgical Pathology Report Patient Name: DASHA MEZA [facility]. Rec. #: [id number] /Age/Gender: 1960 (Age: 59) / F Account: [id number] Location: [facility]-ENDOSCOPY Taken: 06/28/2019 Received: 06/28/2019 Reported: 06/30/2019 Physicians: Abdulkadir Calle D.O. Specimen(s) Received A: ANTRAL EROSIONS BIOPSY B: ANGULARIS AND BODY BIOPSY C: POLYP GASTRIC BODY OF STOMACH D: POLYP GASTRIC FUNDUS Clinical History Abnormal CT scan, history of lymphoma Postoperative diagnosis: Gastric polyps, gastritis, gastric diverticulum Final Diagnosis A. STOMACH, ANTRAL EROSIONS, BIOPSY: GASTRIC ANTRAL MUCOSA WITH MILD CHRONIC GASTRITIS AND INTESTINAL METAPLASIA. NO DYSPLASIA IDENTIFIED. IMMUNOHISTOCHEMICAL STAIN FOR H. PYLORI IS NEGATIVE. B. STOMACH, ANGULARIS AND BODY, BIOPSY: GASTRIC BODY MUCOSA WITH MILD CHRONIC GASTRITIS. IMMUNOHISTOCHEMICAL STAIN FOR H. PYLORI IS NEGATIVE. C. STOMACH, GASTRIC BODY, POLYPS, BIOPSY: FUNDIC GLAND POLYP(S). IMMUNOHISTOCHEMICAL STAIN FOR H. PYLORI IS NEGATIVE. D. STOMACH, GASTRIC FUNDUS, POLYP, BIOPSY: FUNDIC GLAND POLYP. IMMUNOHISTOCHEMICAL STAIN FOR H. PYLORI IS NEGATIVE. Electronically Signed Cassy Cruz M.D. Gross Description A. Received in formalin, labeled "biopsy antral erosions" is a lora, irregular portion of soft tissue measuring 0.2 cm. in greatest dimension. The specimen is submitted in toto in one cassette. B. Received in formalin, labeled "biopsy angularis and body" are 3 lora, irregular portions of soft tissue ranging from 0.2-0.4 cm. in greatest dimension. The specimens are submitted in toto in one cassette. C. Received in formalin, labeled "polyps gastric body of stomach" are 6 lora, irregular portions of soft tissue ranging from 0.1-0.4 cm. in greatest dimension. The specimens are submitted in toto in one cassette. D. Received in formalin, labeled "polyp gastric fundus" are 3 lora, irregular portions of soft tissue ranging from 0.3-0.4 cm. in greatest dimension. The specimens are submitted in toto in one cassette. DL/06/28/2019 saudi06/28/2019
== END 2019-06-28 12:39 | disposition home or self-care (01) ==
LOC: JASU-ENDO 09:16
PROVIDERS: ATTEND Internal Medicine Gastroenterology
PROC: 0DB68ZX Excision of Stomach, Via Natural or Artificial Opening Endoscopic, Diagnostic (ICD-10-PCS; principal; 2019-06-28 12:15)
DX: K31.7 Polyp of stomach and duodenum (principal); K29.50 Unspecified chronic gastritis without bleeding; K31.9 Disease of stomach and duodenum, unspecified; R93.3 Abnormal findings on diagnostic imaging of other parts of digestive tract

== ENCOUNTER 2019-07-12 10:32 | Day surgery (SDC) | payer OTHER ==
[2019-07-11 10:44] VITALS: BMI 23.0
[2019-07-12 13:02] VITALS: TEMP 97.5
[2019-07-12 13:53] VITALS: BP 105/63; PULSE 70
--- NOTE | 2019-07-13 16:32 | PATH ---
Surgical Pathology Report Patient Name: DASHA MEZA [facility]. Rec. #: [id number] /Age/Gender: 1960 (Age: 59) / F Account: [id number] Location: [facility]-ENDOSCOPY Taken: 07/12/2019 Received: 07/12/2019 Reported: 07/13/2019 Physicians: Abdulkadir Calle D.O. Specimen(s) Received A: RIGHT COLON POLYP B: RECTO SIGMOID POLYP C: RECTUM Clinical History Colon screening Postoperative diagnosis: Colon polyp, diverticulosis Final Diagnosis A. RIGHT COLON POLYP, BIOPSY: POLYPOID COLONIC MUCOSA WITH FOCAL SURFACE HYPERPLASTIC CHANGE. B. RECTOSIGMOID POLYP, BIOPSY: POLYPOID COLONIC MUCOSA WITH REACTIVE LYMPHOID AGGREGATE AND FOCAL SURFACE HYPERPLASTIC CHANGE. C. RECTUM, BIOPSY: COLONIC MUCOSA WITH FOCAL REACTIVE LYMPHOID AGGREGATE. Electronically Signed Taurus Carmichael M.D. Gross Description A. Received in formalin, labeled "biopsy right colon polyp" is a lora, irregular portion of soft tissue measuring 0.2 cm. in greatest dimension. The specimen is submitted in toto in one cassette. B. Received in formalin, labeled "biopsy rectosigmoid polyp" are 2 lora, irregular portions of soft tissue averaging 0.1 cm. in greatest dimension. The specimens are submitted in toto in one cassette. C. Received in formalin, labeled "biopsy rectum" are 2 lora, irregular portions of soft tissue averaging 0.2 cm. in greatest dimension. The specimens are submitted in toto in one cassette. /07/12/2019 saudi07/12/2019
== END 2019-07-12 13:58 | disposition home or self-care (01) ==
LOC: JASU-ENDO 10:32
PROVIDERS: ATTEND Internal Medicine Gastroenterology
PROC: 0DBN8ZX Excision of Sigmoid Colon, Via Natural or Artificial Opening Endoscopic, Diagnostic (ICD-10-PCS; 2019-07-12)
PROC: 0DBP8ZX Excision of Rectum, Via Natural or Artificial Opening Endoscopic, Diagnostic (ICD-10-PCS; 2019-07-12)
PROC: 0DBF8ZX Excision of Right Large Intestine, Via Natural or Artificial Opening Endoscopic, Diagnostic (ICD-10-PCS; principal; 2019-07-12 10:45)
DX: Z12.11 Encounter for screening for malignant neoplasm of colon (principal); D12.7 Benign neoplasm of rectosigmoid junction; K64.8 Other hemorrhoids; K57.30 Diverticulosis of large intestine without perforation or abscess without bleeding
CPT/HCPCS: 88305-TC

== ENCOUNTER 2022-04-17 16:57 | Emergency (ER) | payer OTHER ==
[2022-04-17 17:04] VITALS: TEMP 97.8; BMI 20.6
[2022-04-17] MEDS ORDERED: SODIUM CHLORIDE 1,000 ML IV STA (18:09)
[2022-04-17] MEDS ORDERED: ACETAMINOPHEN 1000 MG/100 ML BAG IVPB ONE (18:09)
[2022-04-17] MEDS ORDERED: ACETAMINOPHEN INJECTION 100 ML IVPB ONE (18:50)
[2022-04-17 19:26] LABS: EPI CELLS 12 /uL (0-25.1); HYALINE CASTS 0 /uL (0-3.1); URINE APPEARANCE CLEAR; URINE BACTERIA 8395 /uL (0-1359); URINE BILIRUBIN NEGATIVE (NEGATIVE); URINE COLOR YELLOW; URINE GLUCOSE (UA) NEGATIVE (NEGATIVE); URINE KETONE NEGATIVE (NEGATIVE); URINE LEUK ESTERASE 2+ (NEGATIVE); URINE NITRITE NEGATIVE (NEGATIVE); URINE PROTEIN NEGATIVE (NEGATIVE); URINE RBC 8 /uL (0-23.9); URINE UROBILINOGEN 0.2 mg/dL (0.2-1.0); URINE WBC 91 /uL (0-25.8)
[2022-04-17 19:29] LABS: BASO % 1.1 % (0-2.0); EOS % 3.6 % (0-4.5); HEMATOCRIT 43.8 % (32.4-45.2); HEMOGLOBIN 14.8 GM/dL (10.7-15.3); LYMPH % 19.1 % (8-40); MCH 31.2 pg (25.7-33.7); MCHC 33.7 g/dl (32.0-36.0); MEAN CELL VOLUME 92.5 fl (80-96); MEAN PLT VOLUME 8.3 fl (7.5-11.1); MONO % 7.4 % (3.8-10.2); NEUT % 68.8 % (42.8-82.8); PLATELET COUNT 267 10^3/uL (134-434); RBC 4.74 M/mm3 (3.60-5.2); RDW 12.9 % (11.6-15.6); WHITE BLOOD COUNT 5.5 K/mm3 (4.0-10.0)
[2022-04-17 19:39] LABS: INR 1.15 (0.83-1.09); PROTHROMBIN TIME (PATIENT) 13.3 SEC (9.7-13.0)
[2022-04-17 19:42] LABS: ACTIVATED PTT 32.4 SECONDS (25.2-36.5)
[2022-04-17 19:52] LABS: ALBUMIN 4.4 g/dl (3.4-5.0); BLOOD UREA NITROGEN 17.7 mg/dL (7-18)
[2022-04-17 19:55] LABS: CREATININE 0.8 mg/dL (0.55-1.3)
[2022-04-17 19:57] LABS: BILIRUBIN,TOTAL 0.5 mg/dL (0.2-1); TOT PROT 8.2 g/dl (6.4-8.2)
[2022-04-17 22:00] VITALS: BP 132/78; PULSE 82; RESP 20
== END 2022-04-17 22:00 | disposition home or self-care (01) ==
LOC: JER 16:57
PROC: 3E0333Z Introduction of Anti-inflammatory into Peripheral Vein, Percutaneous Approach (ICD-10-PCS; principal; 2022-04-17)
PROC: 3E0337Z Introduction of Electrolytic and Water Balance Substance into Peripheral Vein, Percutaneous Approach (ICD-10-PCS; 2022-04-17)
DX: R10.31 Right lower quadrant pain (principal)
CPT/HCPCS: 36415; 74177-TC; 80053; 81003; 83690; 85025; 85610; 85730; 86850; 86900; 86901; 87086; 87186; 99285-25; Q9967